=== PATIENT | male | born 1965 | race Caucasian/White ===

== ENCOUNTER 2017-02-03 17:56 | Inpatient (IN) | payer OTHER ==
--- NOTE | 2017-02-03 19:49 | C.PDOC ---
History Of Present Illness 52 y/o male presents to ED with complaints of right hand pain and questionable metacarpal fracture. Patient sates he punched a glass wall last that broke on and was seen at another Hospital and given Antibiotics which he finished but no improvement. Patient was also given a hand splint which he removed. Patient denies weakness, numbness but swelling and erythema is noted. No other complaints at this time Time Seen by Provider: 02/03/17 18:58 Chief Complaint (Nursing): Abnormal Skin Integrity History Per: Patient History/Exam Limitations: no limitations Onset/Duration Of Symptoms: Days Location Of Injury: Right: Hand Quality Of Symptoms: Painful Past Medical History Reviewed: Historical Data, Nursing Documentation, Vital Signs Vital Signs: Last Vital Signs Temp 99.1 F 02/03/17 18:28 Pulse 105 H 02/03/17 18:28 Resp 20 02/03/17 18:28 BP 138/89 02/03/17 18:28 Pulse Ox 96 02/03/17 22:12 - Medical History PMH: Anxiety, Arthritis, Asthma, Depression, HTN, Kidney Stones Surgical History: Appendectomy - [facility] Procedures APPLICATION OF SPLINT (01/03/14) INJECT/INFUSE NEC (09/06/14) Family History: States: Unknown Family Hx - Social History Hx Alcohol Use: No Hx Substance Use: Yes - Immunization History Hx Tetanus Toxoid Vaccination: Yes Hx Influenza Vaccination: Yes Hx Pneumococcal Vaccination: No Review Of Systems Constitutional: Negative for: Weakness Musculoskeletal: Positive for: Hand Pain. Negative for: Shoulder Pain, Arm Pain Neurological: Negative for: Weakness, Numbness Physical Exam - Physical Exam Appears: Non-toxic, No Acute Distress Skin: Normal Color, Warm Head: Atraumatic, Normacephalic Extremity: Capillary Refill (<2 seconds), Swelling (Diffuse Swelling over hand, metacarpals non tender,unable to make a fist. ), Other (4th right knuckle open wound, warmth with purulent discharge on right 4th knuckle) Pulses: Left Radial: Normal, Right Radial: Normal Neurological/Psych: Normal Motor, Normal Sensation, Normal Reflexes ED Course And Treatment - Laboratory Results Result Diagrams: 02/03/17 20:06 02/03/17 20:06 O2 Sat by Pulse Oximetry: 96 (RA) Pulse Ox Interpretation: Normal Medical Decision Making Medical Decision Making: discussed iwth Dr Logan, may admit to his service on medicine. Dr Blood called for hand consult. Disposition Discussed With : Macario Logan Doctor Will See Patient In The: ED - Disposition Disposition Time: 21:14 Condition: STABLE - Clinical Impression Clinical Impression: Cellulitis of right hand - PA / [employer] / Resident Statement MD/DO has reviewed & agrees with the documentation as recorded. - Scribe Statement The provider has reviewed the documentation as recorded by the Scribe Gino Sneed All medical record entries made by the Scribe were at my direction and personally dictated by me. I have reviewed the chart and agree that the record accurately reflects my personal performance of the history, physical exam, medical decision making, and the department course for this patient. I have also personally directed, reviewed, and agree with the discharge instructions and disposition. Decision To Admit - Pt Status Changed To: Hospital Disposition Of: Inpatient - Admit Certification Admit to Inpatient:: After my assessment, the patient will require hospitalization for at least two midnights. This is because of the severity of symptoms shown, intensity of services needed, and/or the medical risk in this patient being treated as an outpatient. - InPatient: Physician Admission Certification: I certify that this patient requires 2 or more midnights of care for the following reason:: iv antibiotics for infection to dominant hand - . Bed Request Type: Regular Patient Diagnosis: Cellulitis of right hand
[2017-02-03] MEDS ORDERED: Piperacill/Tazo 3.375gm in Dex 3.375 GM/50 ML BAG IVPB STA (20:02)
[2017-02-03 20:09] LABS: BASO # 0.1 K/uL (0.0-0.2); BASO % 0.6 % (0.0-2.0); EOS # 0.2 K/uL (0.0-0.7); EOS % 1.5 % (0.0-4.0); HEMATOCRIT 43.2 % (35.0-51.0); LYMPH # 2.9 K/uL (1.0-4.3); LYMPH % 24.9 % (20.0-40.0); MEAN CELL VOLUME 88.3 fL (80.0-94.0); MEAN CORPUSCULAR HEMOGLOBIN 29.9 pg (27.0-31.0); MEAN CORPUSCULAR HGB CONC 33.9 g/dL (33.0-37.0); MEAN PLATELET VOLUME 8.2 fL (7.2-11.7); MONO % 8.8 % (0.0-10.0); RED CELL DISTRIBUTION WIDTH 12.9 % (11.5-14.5); WHITE BLOOD COUNT 11.7 K/uL (4.8-10.8)
[2017-02-03] MEDS ORDERED: Piperacillin/Tazobact 3.375 gm 100 ML IVPB ONE (20:16)
[2017-02-03 20:17] LABS: CHLORIDE 104 mmol/L (98-107); SODIUM 143 mmol/L (132-148)
[2017-02-03 20:20] LABS: BLOOD UREA NITROGEN 18 mg/dL (9-20); CALCIUM 9.8 mg/dl (8.6-10.4); CARBON DIOXIDE 27 mmol/L (22-30); GFR AFRICAN-AMERICAN > 60; GLUCOSE,RANDOM 80 mg/dL (75-110)
[2017-02-03] MEDS ORDERED: Bacitracin 500 Units/gm Oint Foilpak UD ONE (20:58)
[2017-02-03] MEDS ORDERED: Vancomycin 1 GM 1 GM/250 ML BAG IVPB ONE (21:17)
[2017-02-04] MEDS ORDERED: Oxycodone/Acetaminophen 5/325 mg Tab PO PRN (00:58)
[2017-02-04] MEDS: Clindamycin 300 MG in Sodium Chloride 0.9% 50 ML IVPB SCH ×3 (02:27→19:00)
--- NOTE | 2017-02-04 03:27 | CP.PCM.HP ---
<Bekah Lassiter - Last Filed: 02/04/17 05:03> History of Present Illness - History of Present Illness History of Present Illness: CC: Right arm is infected HPI: Patient is a 52yo male PMHx of HTN, arthritis, anxiety, depression presenting with a right hand infection worsening over the past two weeks. Patient reports that 2 weeks ago he punched some thick glass out of anger and noticed that the next morning his hand had become very swollen. Patient had a scab on the dorsal surface of his hand from an work injury which "popped off" after which he had an open wound that was draining serosanguinous fluid that later turned into purulent fluid. Patient reported that he could feel like his hand was inflamed and felt like there was something stuck in it between the fourth and fifth metacarpal. He was given percocet for the pain and a 7 day course of antibiotics but the purulent discharge continued and the pain worsened. Patient reported he was unable to make a fist secondary to the pain and he felt like his right hand was tight. He continued to apply "3 in 1 antibiotic ointment" which did not seem to help. Patient decided to come in today as the pain and purulent discharge worsened. 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 Patient denied diaphoresis, weakness, chaneg in hearing, sore throat, dysphagia, chest pain, palpitations, SOB, cough, abdominal pain, nausea, vomiting, hematemesis, hematochezia, melenotic stool, dysuria, swelling in his legs, rash, easy bruising, easy bleeding. Patient has been traveling back and forth to [facility] and has not been around any sick contacts. PMHx: HTN, arthritis, anxiety, depression PSHx: denies ALL: NKDA Medications: Lisinopril 10mg po daily Social Hx: denies EtOH, tobacco. smokes marijuana for arthritis. Family Hx: mother and father had unknown cancer; gout and DM in mother PMD: [facility] --> patient switching to Dr. 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 absent: Increased Appetite, Weight Gain - EENT Eyes: As Per HPI, Blurred Vision Ears: As Per HPI, Dizziness. absent: Tinnitus Nose/Mouth/Throat: As Per HPI. absent: Dysphagia, Sore Throat - Cardiovascular Cardiovascular: As Per HPI. absent: Chest Pain, Dyspnea, Edema, Palpitations - Respiratory Respiratory: As Per HPI. absent: Cough, Dyspnea, Dyspnea on Exertion, Chest Congestion - Gastrointestinal Gastrointestinal: As Per HPI, Diarrhea. absent: Abdominal Pain, Constipation, Nausea, Vomiting - Genitourinary Genitourinary: As Per HPI, Nocturia, Urinary Frequency. absent: Dysuria, Hematuria, Pyuria - Musculoskeletal Musculoskeletal: As Per HPI, Back Pain. absent: Numbness, Tingling - Integumentary Integumentary: As Per HPI, Non-Healing Lesions, Wounds. absent: Pruritus, Rash - Neurological Neurological: As Per HPI, Dizziness, Headaches. absent: Tingling - Psychiatric Psychiatric: As Per HPI, Anxiety - Endocrine Endocrine: As Per HPI, Polyuria. absent: Palpitations, Polydipsia, Polyphagia - Hematologic/Lymphatic Hematologic: As Per HPI. 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 - RENAL Hx Kidney Stones: Yes - HEMATOLOGICAL/ONCOLOGICAL Hx Human Immunodeficiency Virus (HIV): No - MUSCULOSKELETAL/RHEUMATOLOGICAL Hx Arthritis: Yes - GENITOURINARY/GYNECOLOGICAL Hx Sexually Transmitted Disorders: No - PSYCHIATRIC Hx Anxiety: Yes Hx Depression: Yes Hx Substance Use: Yes - SURGICAL HISTORY Hx Appendectomy: Yes - ANESTHESIA Hx Anesthesia: Yes Hx Anesthesia Reactions: No Meds Allergies/Adverse Reactions: Allergies Allergy/AdvReac Type Severity Reaction Status Date / Time No Known Allergies Allergy Verified 02/03/17 18:32 Physical Exam - Constitutional Appears: Non-toxic, No Acute Distress - Head Exam Head Exam: ATRAUMATIC, NORMAL INSPECTION, NORMOCEPHALIC - Eye Exam Eye Exam: EOMI, Normal appearance, PERRL. absent: Conjunctival injection, Scleral icterus Pupil Exam: NORMAL ACCOMODATION, PERRL - ENT Exam ENT Exam: Mucous Membranes Moist - Neck Exam Neck exam: Positive for: Full Rom, Normal Inspection. Negative for: Lymphadenopathy - Respiratory Exam Respiratory Exam: Clear to Auscultation Bilateral, NORMAL BREATHING PATTERN. absent: Accessory Muscle Use, Rales, Rhonchi, Wheezes - Cardiovascular Exam Cardiovascular Exam: REGULAR RHYTHM, RRR, +S1, +S2. absent: Systolic Murmur - GI/Abdominal Exam GI & Abdominal Exam: Normal Bowel Sounds, Soft. absent: Firm, Guarding, Rigid, Tenderness - Extremities Exam Extremities exam: Positive for: normal capillary refill, tenderness (over 4th metatarsal), pedal pulses present. Negative for: pedal edema Additional comments: right hand diffuse Swelling; unable to make a fist 4th right knuckle open wound, warmth with purulent discharge on right 4th knuckle - Back Exam Back exam: NORMAL INSPECTION. absent: rash noted, tenderness - Neurological Exam Neurological exam: Alert, CN II-XII Intact, Oriented x3 - Psychiatric Exam Psychiatric exam: Normal Affect, Normal Mood - Skin Skin Exam: Warm Additional comments: purulent discharge from open wound over right 4th metatarsal Results - Vital Signs Recent Vital Signs: Last Vital Signs Temp 98.7 F 02/04/17 02:18 Pulse 76 02/04/17 02:18 Resp 18 02/04/17 02:18 BP 132/67 02/04/17 02:18 Pulse Ox 96 02/04/17 02:18 - Labs Result Diagrams: 02/03/17 20:06 02/03/17 20:06 Assessment & Plan - Assessment and Plan (Free Text) Assessment: 52yo male PMHx of HTN, arthritis, anxiety, depression presenting with a right hand infection worsening over the past two weeks Plan: R hand wound -Surgery Dr. Hudson consulted -f/u CT R hand with IV contrast -f/u R hand x-ray official read -f/u AM labs -f/u wound culture and blood culture -Rocephin 1gm ivpb daily -Clindamycin 300mg IVPB q6h -Toradol 15mg ivp q6h prn pain -Percocet 5/325mg 1 tab po q6h prn pain mild Hx of HTN -Lisinopril 10mg po daily -Monitor -f/u HgbA1c and lipid panel PPX -Protonix 40mg ivp daily -VTE ppx on hold for procedure -NPO -SCDs Case discussed with Dr. Desmond Lassiter PGY1 <Macario Logan P - Last Filed: 02/11/17 10:55> Results - Vital Signs Recent Vital Signs: Last Vital Signs Temp 97.6 F 02/11/17 08:10 Pulse 66 02/11/17 08:10 Resp 20 02/11/17 08:10 BP 98/60 L 02/11/17 08:10 Pulse Ox 97 02/11/17 08:10 - Labs Result Diagrams: 02/11/17 07:48 02/11/17 07:48 Labs: Laboratory Results - last 24 hr 02/10/17 02/11/17 02/11/17 07:16 00:42 07:48 WBC 7.1 RBC 4.60 Hgb 13.6 Hct 40.7 MCV 88.5 MCH 29.6 MCHC 33.5 RDW 12.9 Plt Count 255 MPV 8.8 Neut % (Auto) 49.3 L Lymph % (Auto) 36.3 [place] % (Auto) 10.0 Eos % (Auto) 3.6 Baso % (Auto) 0.8 Neut # 3.5 Lymph # 2.6 [place] # 0.7 Eos # 0.3 Baso # 0.1 Sodium Potassium Chloride Carbon Dioxide Anion Gap BUN Creatinine Est GFR ( Amer) Est GFR (Non-Af Amer) Random Glucose Calcium Phosphorus Magnesium Total Bilirubin AST ALT Alkaline Phosphatase Total Protein Albumin Globulin Albumin/Globulin Ratio Procalcitonin < 0.05 L Vancomycin Trough 10.0 02/11/17 07:48 WBC RBC Hgb Hct MCV MCH MCHC RDW Plt Count MPV Neut % (Auto) Lymph % (Auto) [place] % (Auto) Eos % (Auto) Baso % (Auto) Neut # Lymph # [place] # Eos # Baso # Sodium 140 Potassium 4.0 Chloride 105 Carbon Dioxide 23 Anion Gap 15 BUN 14 Creatinine 1.0 Est GFR ( Amer) > 60 Est GFR (Non-Af Amer) > 60 Random Glucose 81 Calcium 8.9 Phosphorus 4.0 Magnesium 2.1 Total Bilirubin 0.6 AST 29 ALT 38 Alkaline Phosphatase 65 Total Protein 7.8 Albumin 3.9 Globulin 3.9 Albumin/Globulin Ratio 1.0 Procalcitonin Vancomycin Trough Attending/Attestation - Attestation I have personally seen and examined this patient.: Yes I have fully participated in the care of the patient.: Yes I have reviewed all pertinent clinical information: Yes
--- NOTE | 2017-02-04 07:27 | CP.PCM.PN ---
<Trini Schreiber - Last Filed: 02/04/17 12:07> Subjective - Date & Time of Evaluation Date of Evaluation: 02/04/17 Time of Evaluation: 07:35 - Subjective Subjective: Patient seen and examined at bedside this morning. He reports that he has pain on his R hand over the lesion but denied radiating pain. He did not have any pain in his wrist. He was able to moves his fingers and hand but stated there was pain with movement. He denied fevers/chills. He denied all other complaints. He will have a bedside I/D of of R hand wound today. Objective - Vital Signs/Intake and Output Vital Signs (last 24 hours): Temp Pulse Resp BP Pulse Ox 98.3 F 77 20 136/79 97 02/04/17 03:17 02/04/17 03:17 02/04/17 03:17 02/04/17 03:17 02/04/17 03:17 Intake and Output: 02/04/17 02/04/17 06:59 18:59 Intake Total 50 Balance 50 - Medications Medications: Current Medications Ceftriaxone Sodium 1 gm/ (Sodium Chloride) 100 mls @ 100 mls/hr IVPB DAILY [facility] Clindamycin Phosphate 300 mg/ (Sodium Chloride) 52 mls @ 100 mls/hr IVPB Q6H [facility] Last Admin: 02/04/17 06:36 Dose: 100 mls/hr Ketorolac Tromethamine (Toradol) 15 mg IVP Q6 PRN PRN Reason: Pain, moderate (4-7) Lisinopril (Zestril) 10 mg PO DAILY [facility] Oxycodone/Acetaminophen (Percocet 5/325 Mg Tab) 1 tab PO Q6H PRN PRN Reason: Pain, Mild (1-3) Stop: 02/07/17 00:59 Last Admin: 02/04/17 03:54 Dose: 1 tab Pantoprazole Sodium (Protonix Inj) 40 mg IVP DAILY [facility] Pneumococcal Polyvalent Vaccine (Pneumovax 23 Vaccine) 0.5 ml IM .ONCE ONE Stop: 02/06/17 10:01 - Constitutional Appears: Non-toxic, No Acute Distress - Head Exam Head Exam: ATRAUMATIC, NORMAL INSPECTION - Eye Exam Eye Exam: EOMI, Normal appearance, PERRL Pupil Exam: NORMAL ACCOMODATION - ENT Exam ENT Exam: Mucous Membranes Moist - Respiratory Exam Respiratory Exam: Clear to Ausculation Bilateral, NORMAL BREATHING PATTERN. absent: Rales, Rhonchi, Wheezes, Respiratory Distress - Cardiovascular Exam Cardiovascular Exam: REGULAR RHYTHM, +S1, +S2 - GI/Abdominal Exam GI & Abdominal Exam: Soft, Normal Bowel Sounds. absent: Distended, Firm, Guarding, Tenderness - Extremities Exam Additional comments: Palpable pulses in R UE, swelling of fourth right digit, warmth and erythema of right 4th MCP, bruising on volar surface of right hand. Sensation is intact. Mild decrease in ROM due to edema Pain with flexion and extension of MCP joint. - Back Exam Back Exam: NORMAL INSPECTION. absent: CVA tenderness (L), CVA tenderness (R), paraspinal tenderness - Neurological Exam Neurological Exam: Alert, Awake, Normal Gait, Oriented x3 Neuro motor strength exam: Left Upper Extremity: 5, Right Upper Extremity: 5, Left Lower Extremity: 5, Right Lower Extremity: 5 - Psychiatric Exam Psychiatric exam: Normal Affect, Normal Mood - Skin Skin Exam: Dry, Intact, Normal Color, Warm Assessment and Plan - Assessment and Plan (Free Text) Assessment: Assessment: 52yo male PMHx of HTN, arthritis, anxiety, depression presenting with a right hand infection worsening over the past two weeks Plan: R hand wound Surgery Dr. Hudson consulted - will have bedside ID done today f/u CT R hand with IV contrast R hand x-ray official read - no evidence of osteomyelitis, fracture, or dislocation f/u wound culture and blood culture Rocephin 1gm ivpb daily (started 02/04) Clindamycin 300mg IVPB q6h (started 02/04) Florastor Percocet 5/325mg 1 tab po q6h prn pain mild EKG/chest X ray - normal coags wnl (INR 1.1) f/u AM labs Hx of HTN BP controlled Lisinopril 10mg po daily Monitor Impaired Glucose tolerance HbA1c - 5.7 diet and lifestyle modifications High Triglycerides Trig - 202 diet and lifestyle modifications PPX -Protonix 40mg ivp daily -VTE ppx on hold for procedure -SCDs <Jocelin Mobley V - Last Filed: 02/05/17 23:38> Objective - Vital Signs/Intake and Output Vital Signs (last 24 hours): Temp Pulse Resp BP Pulse Ox 98.4 F 79 18 134/81 95 02/05/17 22:40 02/05/17 22:40 02/05/17 22:40 02/05/17 22:40 02/05/17 15:41 Intake and Output: 02/05/17 02/06/17 18:59 06:59 Intake Total 340 200 Balance 340 200 - Medications Medications: Current Medications Enoxaparin Sodium (Lovenox) 40 mg SC DAILY [facility] Last Admin: 02/05/17 11:34 Dose: 40 mg Vancomycin/Sodium Chloride (Vancocin) 1 gm in 200 mls @ 133 mls/hr IVPB Q12H [facility] Stop: 02/10/17 10:01 Last Admin: 02/05/17 21:28 Dose: 133 mls/hr Ceftriaxone Sodium 1 gm/ (Sodium Chloride) 100 mls @ 100 mls/hr IVPB DAILY [facility] Lisinopril (Zestril) 10 mg PO DAILY [facility] Last Admin: 02/05/17 11:04 Dose: 10 mg Ondansetron HCl (Zofran Inj) 4 mg IVP Q4 PRN PRN Reason: Nausea/Vomiting Oxycodone/Acetaminophen (Percocet 5/325 Mg Tab) 1 tab PO Q4 PRN PRN Reason: Pain, Mild (1-3) Stop: 02/08/17 12:01 Last Admin: 02/05/17 22:11 Dose: 1 tab Pantoprazole Sodium (Protonix Inj) 40 mg IVP DAILY [facility] Last Admin: 02/05/17 11:03 Dose: 40 mg Pneumococcal Polyvalent Vaccine (Pneumovax 23 Vaccine) 0.5 ml IM .ONCE ONE Stop: 02/06/17 10:01 Saccharomyces Boulardii (Florastor) 250 mg PO BID [facility] Last Admin: 02/05/17 17:33 Dose: 250 mg - Labs Labs: 02/05/17 06:12 02/05/17 06:12 PT 12.2 SECONDS (9.7-12.2) 02/04/17 07:41 INR 1.1 02/04/17 07:41 APTT 25 SECONDS (21-34) 02/04/17 07:41 Attending/Attestation - Attestation I have personally seen and examined this patient.: Yes I have fully participated in the care of the patient.: Yes I have reviewed all pertinent clinical information, including history, physical exam and plan: Yes Notes (Text): This is late computer entry for 02/04/17. Patient seen, examined, and case discussed with day-time resident. Patient seen and examined during morning rounds, noting he hit his hand against a wall following breakup with his girlfriend. Denies SI/Denies HI. Declines help from psychiatry when offered during rounds. Hand surgery consulted->help appreciated recommended for I&D Patient is currently on IV abx to cover for infection. Ordered for cultures-->will follow-up Assessment/Plan 1) Hand Wound * Surgery Dr. Hudson consulted-->help appreciated-->recommending for I&D * Clindamycin 300mg IVPB Q 6H (active since 02/04/17) * c/w Rocephin 1gm ivpb daily (started 02/04/17) * CT R hand with IV contrast (02/04/17) ordered * Hand right (02/03/17): pending * Percocet 5/325mg 1 tab po q4h prn pain mild * EKG: NSR, INR: 1.1 2) Hypertension * Lisinopril 10mg PO daily * Monitor vitals and adjust accordingly 3) Impaired Glucose tolerance * HbA1c - 5.7 * Advocate for diet and lifestyle modifications 4) Elevated triglycerides and low HDL * Trig - 202-->advocate for diet and lifestyle modifications * recommended OTC fish oil and exercise to build up HDL 5) PPX * Protonix 40mg ivp daily * SCDs * Florastor 250mg PO BID
[2017-02-04 07:55] LABS: BASO # 0.1 K/uL (0.0-0.2); BASO % 0.6 % (0.0-2.0); EOS # 0.2 K/uL (0.0-0.7); EOS % 2.4 % (0.0-4.0); HEMATOCRIT 39.3 % (35.0-51.0); LYMPH % 37.3 % (20.0-40.0); MEAN CELL VOLUME 88.3 fL (80.0-94.0); MEAN CORPUSCULAR HEMOGLOBIN 29.5 pg (27.0-31.0); MEAN CORPUSCULAR HGB CONC 33.4 g/dL (33.0-37.0); MEAN PLATELET VOLUME 8.4 fL (7.2-11.7); MONO # 0.8 K/uL (0.0-0.8); MONO % 10.5 % (0.0-10.0); NRBC % 0.1 % (0.0-2.0); RED CELL DISTRIBUTION WIDTH 13.4 % (11.5-14.5)
[2017-02-04 08:03] LABS: INR 1.1
[2017-02-04 08:10] LABS: CHOLESTEROL 172 mg/dL (0-199)
[2017-02-04 08:17] LABS: CHLORIDE 108 mmol/L (98-107); POTASSIUM 3.8 mmol/L (3.6-5.2); SODIUM 142 mmol/L (132-148)
[2017-02-04 08:19] LABS: ALB/GLOB RATIO 1.1 (1.0-2.1); AST/SGOT 24 U/L (17-59); CARBON DIOXIDE 23 mmol/L (22-30); GFR AFRICAN-AMERICAN > 60; TOTAL PROTEIN 7.5 g/dL (6.3-8.3)
[2017-02-04 08:20] LABS: ALKALINE PHOSPHATASE 66 U/L (38-126); ALT/SGPT 24 U/L (21-72); BLOOD UREA NITROGEN 19 mg/dL (9-20); CALCIUM 9.1 mg/dl (8.6-10.4); GLUCOSE,RANDOM 92 mg/dL (75-110); MAGNESIUM 2.4 mg/dL (1.6-2.3); PHOSPHOROUS 4.3 mg/dL (2.5-4.5)
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
[2017-02-04] MEDS ORDERED: Iodixanol 320 MG/ML 100 ML BOTTLE IV ONE (09:12)
--- NOTE | 2017-02-04 10:00 | RAD ---
HISTORY: baseline/preadmission COMPARISON: No prior. FINDINGS: LUNGS: Poor inspiration with low lung volumes, mild crowded bronchovascular markings and mild bibasilar atelectasis. PLEURA: No significant pleural effusion identified, no pneumothorax apparent. CARDIOVASCULAR: Heart size upper limits of normal. OSSEOUS STRUCTURES: No significant abnormalities. VISUALIZED UPPER ABDOMEN: Normal. OTHER FINDINGS: None. IMPRESSION: Poor inspiration with low lung volumes, mild crowded bronchovascular markings and mild bibasilar atelectasis.
--- NOTE | 2017-02-04 10:15 | RAD ---
PROCEDURE: Right Hand Radiographs. HISTORY: 4th metacarpal swelling, purulent discharge COMPARISON: None. FINDINGS: BONES: Normal. No fracture. JOINTS: Normal. No osteoarthritic changes. SOFT TISSUES: Soft tissue swelling. OTHER FINDINGS: None. IMPRESSION: No osteomyelitis fracture or dislocation.
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
[2017-02-04] MEDS ORDERED: Sodium Chloride 0.9% 1,000 ML IV SCH (12:45)
[2017-02-04] MEDS: Potassium Ch 20mEq in D5-1/2NS 1,000 ML IV SCH ×3 (12:53→17:47)
[2017-02-04] MEDS ORDERED: Propofol 10 mg/ml Inj (20 ML) ONE (13:11)
[2017-02-04] MEDS ORDERED: Midazolam 2 MG/2 ML VIAL ONE ×2 (13:13→13:14)
[2017-02-04] MEDS ORDERED: Lactated Ringer's 1,000 ML IV ONE ×2 (13:15→15:15)
[2017-02-04] MEDS ORDERED: Bupivacaine 0.5% Inj(30mL) ONE (13:22)
--- NOTE | 2017-02-04 13:30 | CT ---
CT right hand History: Abscess. Comparison: None available. Technique: Multiple contiguous axial images were performed through the right hand with the use of intravenous contrast. Subsequently, sagittal and coronal reformatted images were obtained. This CT exam was performed using one or more of the following dose reduction techniques: Automated exposure control, adjustment of the mA and/or kV according to patient size, and/or use of iterative reconstruction technique. Findings: Prominent soft tissue swelling seen within the dorsal soft tissues at the level of 3rd 4th and 5th metacarpal heads. At the level of the 4th metacarpal head, there is a prominent partially enhancing soft tissue collection measuring 2.0 x 2.0 x 2.1 centimeters extending from the subcutaneous soft tissues to the dorsal cortex of the head of the 4th metacarpal bone extending to the MCP joint space. This collection appears to possibly involves the 4th extensor tendon sheath displacing the tendon radially approximately 5 millimeters. This is concerning for a focal abscess and or prominent phlegmon. No gross osseous destruction to suggest for acute osteomyelitis. If there is concern for acute osteomyelitis, consider further evaluation with MRI. Prominent degenerative changes at the level of the wrist and carpometacarpal basis with joint space narrowing, subchondral sclerosis, osteophytosis, and subchondral cyst formation. Suggestion of an accessory carpal bone and or ossicle adjacent to the base of the 3rd metacarpal bone dorsally where there is prominent degenerative change at the articulation with the base of the 3rd metacarpal bone with subchondral sclerosis and subchondral cyst formation. Chronic deformity of the head of the 5th metacarpal bone. Bone island at the head of the 3rd metacarpal bone. Prominent osteophytosis at the base of the 2nd metacarpal carpal bone. Subchondral cyst formation with degenerative changes at the 1st MCP joint space. Punctate ossific density and or accessory ossicle at the 1st carpometacarpal joint space. Degenerative changes noted at the 1st carpometacarpal joint space with sclerosis and bony hypertrophy. Narrowing of the radiocarpal joint space. Subchondral cyst formation within the proximal ulna. Impression: 1. Prominent soft tissue swelling seen within the dorsal soft tissues at the level of 3rd 4th and 5th metacarpal heads. At the level of the dorsal 4th metacarpal head, there is a prominent partially enhancing soft tissue collection measuring 2.0 x 2.0 x 2.1 centimeters extending from the subcutaneous soft tissues to the dorsal cortex of the head of the 4th metacarpal bone extending to the MCP joint space. This collection appears to possibly also involve the 4th extensor tendon sheath displacing the tendon radially approximately 5 millimeters. This is concerning for a focal abscess and or prominent phlegmon. No gross osseous destruction to suggest for acute osteomyelitis. If there is concern for acute osteomyelitis, consider further evaluation with MRI. Correlation with MRI may also be helpful to better evaluate tendinous involvement. 2. Prominent degenerative changes at the level of the wrist and carpometacarpal basis with joint space narrowing, subchondral sclerosis, osteophytosis, and subchondral cyst formation. Suggestion of an accessory carpal bone and or ossicle adjacent to the base of the 3rd metacarpal bone dorsally where there is prominent degenerative change at the articulation with the base of the 3rd metacarpal bone with subchondral sclerosis and subchondral cyst formation. 3. Chronic deformity of the head of the 5th metacarpal bone. 4. Bone island at the head of the 3rd metacarpal bone. 5. Prominent osteophytosis at the base of the 2nd metacarpal carpal bone. Subchondral cyst formation with degenerative changes at the 1st MCP joint space. Punctate ossific density and or accessory ossicle at the 1st carpometacarpal joint space. Degenerative changes noted at the 1st carpometacarpal joint space with sclerosis and bony hypertrophy. Narrowing of the radiocarpal joint space. Subchondral cyst formation within the proximal ulna.
[2017-02-04] MEDS ORDERED: Bacitracin 500 Units/gm Oint Foilpak UD ONE (13:49)
--- NOTE | 2017-02-04 14:33 | PCM.SURG1 ---
Surgeon's Initial Post Op Note - Surgeon's Notes Surgeon: Dr. Hudson Color Matcher: Dr. Villatoro Type of Anesthesia: General LMA, Local Pre-Operative Diagnosis: Right MCP abscess Operative Findings: see operative report Post-Operative Diagnosis: Right MCP abscess Operation Performed: Incision and drainage of right MCP joint abscess with debridement and joint washout Specimen/Specimens Removed: debrided tissue Estimated Blood Loss: EBL {In ML}: 5 Blood Products Given: N/A Drains Used: Lign[place] Post-Op Condition: Good Date of Surgery/Procedure: 02/04/17 Time of Surgery/Procedure: 14:34
[2017-02-04] MEDS: HYDROmorphone 0.5 mg/0.5 ml ISec IVP PRN ×2 (14:53→15:12)
[2017-02-04] MEDS: Saccharomyces Boulardi 250 mg Cap PO SCH (17:17)
[2017-02-05] MEDS: Clindamycin 300 MG in Sodium Chloride 0.9% 50 ML IVPB SCH ×2 (01:03→07:00)
[2017-02-05] MEDS: Potassium Ch 20mEq in D5-1/2NS 1,000 ML IV SCH (03:32)
[2017-02-05 06:28] LABS: BASO % 0.5 % (0.0-2.0); EOS # 0.1 K/uL (0.0-0.7); EOS % 1.2 % (0.0-4.0); HEMATOCRIT 37.4 % (35.0-51.0); LYMPH # 2.7 K/uL (1.0-4.3); LYMPH % 26.6 % (20.0-40.0); MEAN CELL VOLUME 87.9 fL (80.0-94.0); MEAN CORPUSCULAR HGB CONC 34.2 g/dL (33.0-37.0); MEAN PLATELET VOLUME 8.3 fL (7.2-11.7); MONO % 10.2 % (0.0-10.0); RED CELL DISTRIBUTION WIDTH 13.2 % (11.5-14.5); WHITE BLOOD COUNT 10.1 K/uL (4.8-10.8)
[2017-02-05 06:44] LABS: CHLORIDE 101 mmol/L (98-107)
[2017-02-05 06:45] LABS: SODIUM 134 mmol/L (132-148)
[2017-02-05 06:46] LABS: POTASSIUM 4.1 mmol/L (3.6-5.2)
[2017-02-05 06:48] LABS: ALB/GLOB RATIO 1.1 (1.0-2.1); ALKALINE PHOSPHATASE 60 U/L (38-126); ALT/SGPT 24 U/L (21-72); AST/SGOT 18 U/L (17-59); BLOOD UREA NITROGEN 13 mg/dL (9-20); CARBON DIOXIDE 20 mmol/L (22-30); GFR AFRICAN-AMERICAN > 60; GLUCOSE,RANDOM 102 mg/dL (75-110); TOTAL PROTEIN 7.1 g/dL (6.3-8.3)
[2017-02-05 06:49] LABS: CALCIUM 8.3 mg/dl (8.6-10.4); MAGNESIUM 2.1 mg/dL (1.6-2.3); PHOSPHOROUS 3.4 mg/dL (2.5-4.5)
--- NOTE | 2017-02-05 07:17 | CP.PCM.PN ---
<AbdoulTrini - Last Filed: 02/05/17 16:06> Subjective - Date & Time of Evaluation Date of Evaluation: 02/05/17 Time of Evaluation: 07:15 - Subjective Subjective: Patient seen and examined at bedside this morning. He reports that he has pain on his R hand but states it has slightly improved. He had a bedside I/D yesterday. His hand is wrapped up with dressing and and Abelardo bandage. He denied fevers/chills. He denied all other complaints. He is tolerating diet and having normal bowel movements. Objective - Vital Signs/Intake and Output Vital Signs (last 24 hours): Temp Pulse Resp BP Pulse Ox 99.3 F 83 20 101/65 94 L 02/05/17 00:00 02/05/17 00:00 02/05/17 00:00 02/05/17 00:00 02/05/17 00:00 - Medications Medications: Current Medications Ceftriaxone Sodium 1 gm/ (Sodium Chloride) 100 mls @ 100 mls/hr IVPB DAILY [facility] Last Admin: 02/04/17 11:28 Dose: 100 mls/hr Clindamycin Phosphate 300 mg/ (Sodium Chloride) 52 mls @ 100 mls/hr IVPB Q6H [facility] Last Admin: 02/05/17 07:00 Dose: 100 mls/hr Potassium Chloride/Dextrose/Sod Cl (Potassium Chl 20 Meq In D5-1/2ns) 1,000 mls @ 100 mls/hr IV .Q10H [facility] Last Admin: 02/05/17 03:32 Dose: Not Given Lisinopril (Zestril) 10 mg PO DAILY [facility] Last Admin: 02/04/17 10:14 Dose: 10 mg Morphine Sulfate (Morphine) 2 mg IVP Q4 PRN PRN Reason: Pain, moderate (4-7) Last Admin: 02/05/17 06:35 Dose: 2 mg Ondansetron HCl (Zofran Inj) 4 mg IVP Q4 PRN PRN Reason: Nausea/Vomiting Oxycodone/Acetaminophen (Percocet 5/325 Mg Tab) 1 tab PO Q6H PRN PRN Reason: Pain, Mild (1-3) Stop: 02/07/17 00:59 Last Admin: 02/04/17 03:54 Dose: 1 tab Pantoprazole Sodium (Protonix Inj) 40 mg IVP DAILY [facility] Last Admin: 02/04/17 10:19 Dose: 40 mg Pneumococcal Polyvalent Vaccine (Pneumovax 23 Vaccine) 0.5 ml IM .ONCE ONE Stop: 02/06/17 10:01 Saccharomyces Boulardii (Florastor) 250 mg PO BID [facility] Last Admin: 02/04/17 17:17 Dose: 250 mg - Labs Labs: 02/05/17 06:12 02/05/17 06:12 PT 12.2 SECONDS (9.7-12.2) 02/04/17 07:41 INR 1.1 02/04/17 07:41 APTT 25 SECONDS (21-34) 02/04/17 07:41 - Constitutional Appears: Non-toxic, No Acute Distress - Head Exam Head Exam: ATRAUMATIC, NORMAL INSPECTION - Eye Exam Eye Exam: EOMI, Normal appearance, PERRL Pupil Exam: NORMAL ACCOMODATION - ENT Exam ENT Exam: Mucous Membranes Moist - Respiratory Exam Respiratory Exam: Clear to Ausculation Bilateral, NORMAL BREATHING PATTERN. absent: Accessory Muscle Use, Rales, Rhonchi, Wheezes, Respiratory Distress - Cardiovascular Exam Cardiovascular Exam: REGULAR RHYTHM, +S1, +S2 - GI/Abdominal Exam GI & Abdominal Exam: Soft, Normal Bowel Sounds. absent: Distended, Firm, Guarding, Tenderness Additional comments: obese - Extremities Exam Extremities Exam: Normal Inspection. absent: Calf Tenderness, Pedal Edema Additional comments: R hand bandage in place c/d/i. Able to move fingers, warm, sensation in tact. No pain or erythema in wrist. - Back Exam Back Exam: NORMAL INSPECTION. absent: CVA tenderness (L), CVA tenderness (R), paraspinal tenderness - Neurological Exam Neurological Exam: Alert, Awake, Normal Gait, Oriented x3 Neuro motor strength exam: Left Upper Extremity: 5, Right Upper Extremity: 5, Left Lower Extremity: 5, Right Lower Extremity: 5 - Psychiatric Exam Psychiatric exam: Normal Affect, Normal Mood - Skin Skin Exam: Dry, Intact, Normal Color, Warm Assessment and Plan - Assessment and Plan (Free Text) Assessment: Assessment: 52yo male PMHx of HTN, arthritis, anxiety, depression presenting with a right hand infection worsening over the past two weeks Plan: R hand wound -Surgery Dr. Hudson consulted - s/p bedside ID on 02/04 -Enola drain removed today at bedside -Applied Medihoney to wound, wrapped in kerlex -Dr. Dunham, ID consulted - help appreciated -Wound culture - + MRSA, Staph Aureus -ID consulted, Dr. Dunham - help appreciated -Vancomycin 1gm IVPB Q12 (satarted 02/05) - will obtain trough on 4th dose -Rocephin 1gm ivpb daily (started 02/04) -Clindamycin 300mg IVPB q6h (started 02/04) discontinued today -f/u CT R hand with IV contrast - prominen soft tissue swelling seen within the dorsal soft tissues at the level 3rd, 4th, and 5th metacarpal heads. Prominent enhancing soft tissue collection Other incidental findings (please see full report) -R hand x-ray official read - no evidence of osteomyelitis, fracture, or dislocation -Blood cultures - negative for 24 hours -Florastor -Percocet 5/325mg 1 tab po q6h prn pain mild -EKG/chest X ray - normal -coags wnl (INR 1.1) -f/u AM labs Hx of HTN -BP controlled -Lisinopril 10mg po daily -Monitor Impaired Glucose tolerance -HbA1c - 5.7 -diet and lifestyle modifications High Triglycerides -Trig - 202 -diet and lifestyle modifications PPX -Protonix 40mg ivp daily -Lovenox 40mg SC daily -SCDs <Jocelin Mobley V - Last Filed: 02/05/17 23:31> Objective - Vital Signs/Intake and Output Vital Signs (last 24 hours): Temp Pulse Resp BP Pulse Ox 98.4 F 79 18 134/81 95 02/05/17 22:40 02/05/17 22:40 02/05/17 22:40 02/05/17 22:40 02/05/17 15:41 Intake and Output: 02/05/17 02/06/17 18:59 06:59 Intake Total 340 200 Balance 340 200 - Medications Medications: Current Medications Enoxaparin Sodium (Lovenox) 40 mg SC DAILY [facility] Last Admin: 02/05/17 11:34 Dose: 40 mg Vancomycin/Sodium Chloride (Vancocin) 1 gm in 200 mls @ 133 mls/hr IVPB Q12H [facility] Stop: 02/10/17 10:01 Last Admin: 02/05/17 21:28 Dose: 133 mls/hr Ceftriaxone Sodium 1 gm/ (Sodium Chloride) 100 mls @ 100 mls/hr IVPB DAILY [facility] Lisinopril (Zestril) 10 mg PO DAILY [facility] Last Admin: 02/05/17 11:04 Dose: 10 mg Ondansetron HCl (Zofran Inj) 4 mg IVP Q4 PRN PRN Reason: Nausea/Vomiting Oxycodone/Acetaminophen (Percocet 5/325 Mg Tab) 1 tab PO Q4 PRN PRN Reason: Pain, Mild (1-3) Stop: 02/08/17 12:01 Last Admin: 02/05/17 22:11 Dose: 1 tab Pantoprazole Sodium (Protonix Inj) 40 mg IVP DAILY [facility] Last Admin: 02/05/17 11:03 Dose: 40 mg Pneumococcal Polyvalent Vaccine (Pneumovax 23 Vaccine) 0.5 ml IM .ONCE ONE Stop: 02/06/17 10:01 Saccharomyces Boulardii (Florastor) 250 mg PO BID [facility] Last Admin: 02/05/17 17:33 Dose: 250 mg - Labs Labs: 02/05/17 06:12 02/05/17 06:12 PT 12.2 SECONDS (9.7-12.2) 02/04/17 07:41 INR 1.1 02/04/17 07:41 APTT 25 SECONDS (21-34) 02/04/17 07:41 Attending/Attestation - Attestation I have personally seen and examined this patient.: Yes I have fully participated in the care of the patient.: Yes I have reviewed all pertinent clinical information, including history, physical exam and plan: Yes Notes (Text): Patient seen, examined, and case discussed with day-time resident. Patient transferred to 555 following MRSA+ culture and placed on contact. MRSA culture resistant to Clindamycin. Patient started on Vancomycin 1 gram IV Q 12hours. Infectious disease (Dr. Dunham) consulted and discussed with her recommending at least 4 weeks of IV antibiotics. 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 Patient had ruperto drain by the time of my examination by surgery. Assessment/Plan 1) Hand Wound * Surgery Dr. Hudson consulted-->help appreciated * Dr. Dunham, ID consulted - help appreciated * Per surgery, ruperto drain removed today at bedside, recommended for applied Medihoney to wound, wrapped in kerlex * Wound culture - + MRSA, Staph Aureus-->resistant to Clindamycin * Started on Vancomycin 1gm IVPB Q12 (started 02/05) - will obtain trough on 4th dose * c/w Rocephin 1gm ivpb daily (started 02/04) * CT R hand with IV contrast (02/04/17) - prominent soft tissue swelling seen within the dorsal soft tissues at the level 3rd, 4th, and 5th metacarpal heads. Prominent enhancing soft tissue collection Other incidental findings (please see full report). Prominent partially enhancing soft tissue collection 2.0 X2.0 X2.1 cm extending from the subcutaneous soft tissues to the dorsal cortex of the head of 4th MCP extending to MCP joint space, involve 4th extensor tendon sheath (Focal abscess and/or phlegmon). No gross osseous destruction to suggest for acute osteomyelitis. Prominent degenerative changes at the level of wrist and carpometacarpal basis with joint space narrowing, subchondral sclerosis, osteophytosis, and subchondral cyst formation. Chronic deformity of the head 5ht metacarpal bone. Bone island at the head 3rd metacarpala bone. Prominent osteophytosis at the base of 2nd metacarpal carpal bone. Subchondral cyst formation with degenerative changes at the 1st MCP joint space. (Further details per report) * Blood cultures (02/03/17) - negative for 24 hours X2 * Hand right (02/03/17): MRSA * Finger (02/04/17): Staph Aureus * Percocet 5/325mg 1 tab po q4h prn pain mild * Florastor 250mg PO BID 2) Hypertension * Lisinopril 10mg PO daily * Monitor vitals and adjust accordingly 3) Impaired Glucose tolerance * HbA1c - 5.7 * Advocate for diet and lifestyle modifications 4) Elevated triglycerides and low HDL * Trig - 202-->advocate for diet and lifestyle modifications * recommended OTC fish oil and exercise to build up HDL 5) PPX * Protonix 40mg ivp daily * Lovenox 40mg SC daily * SCDs
--- NOTE | 2017-02-05 11:00 | CP.PCM.PN ---
Subjective - Date & Time of Evaluation Date of Evaluation: 02/05/17 Time of Evaluation: 10:59 - Subjective Subjective: HAND SURGERY PROGRESS NOTE FOR DR. HODGE Patient seen and examined at bedside. He states that his hand is sore but it feels much better after the surgery. He is tolerating his diet, ambulating, and going to the bathroom. Objective - Vital Signs/Intake and Output Vital Signs (last 24 hours): Temp Pulse Resp BP Pulse Ox 98.9 F 79 20 144/72 96 02/05/17 07:37 02/05/17 07:37 02/05/17 07:37 02/05/17 07:37 02/05/17 07:37 Intake and Output: 02/05/17 02/05/17 06:59 18:59 Intake Total 1000 Balance 1000 - Medications Medications: Current Medications Enoxaparin Sodium (Lovenox) 40 mg SC DAILY [facility] Potassium Chloride/Dextrose/Sod Cl (Potassium Chl 20 Meq In D5-1/2ns) 1,000 mls @ 100 mls/hr IV .Q10H [facility] Last Admin: 02/05/17 03:32 Dose: Not Given Vancomycin/Sodium Chloride (Vancocin) 1 gm in 200 mls @ 133 mls/hr IVPB Q12H [facility] Stop: 02/10/17 10:01 Lisinopril (Zestril) 10 mg PO DAILY [facility] Last Admin: 02/04/17 10:14 Dose: 10 mg Morphine Sulfate (Morphine) 2 mg IVP Q4 PRN PRN Reason: Pain, moderate (4-7) Last Admin: 02/05/17 06:35 Dose: 2 mg Ondansetron HCl (Zofran Inj) 4 mg IVP Q4 PRN PRN Reason: Nausea/Vomiting Oxycodone/Acetaminophen (Percocet 5/325 Mg Tab) 1 tab PO Q6H PRN PRN Reason: Pain, Mild (1-3) Stop: 02/07/17 00:59 Last Admin: 02/04/17 03:54 Dose: 1 tab Pantoprazole Sodium (Protonix Inj) 40 mg IVP DAILY [facility] Last Admin: 02/04/17 10:19 Dose: 40 mg Pneumococcal Polyvalent Vaccine (Pneumovax 23 Vaccine) 0.5 ml IM .ONCE ONE Stop: 02/06/17 10:01 Saccharomyces Boulardii (Florastor) 250 mg PO BID [facility] Last Admin: 02/04/17 17:17 Dose: 250 mg - Labs Labs: 02/05/17 06:12 02/05/17 06:12 PT 12.2 SECONDS (9.7-12.2) 02/04/17 07:41 INR 1.1 02/04/17 07:41 APTT 25 SECONDS (21-34) 02/04/17 07:41 - Constitutional Appears: Well, Non-toxic, No Acute Distress - Head Exam Head Exam: ATRAUMATIC, NORMAL INSPECTION - Eye Exam Eye Exam: EOMI, Normal appearance - Respiratory Exam Respiratory Exam: NORMAL BREATHING PATTERN. absent: Respiratory Distress - Cardiovascular Exam Cardiovascular Exam: +S1, +S2 - Neurological Exam Neurological Exam: Alert, Awake, Oriented x3 - Psychiatric Exam Psychiatric exam: Normal Affect, Normal Mood - Skin Additional comments: Hand wrapped in dressing, clean, dry, intact Dressing removed, Hazel drain in place (removed) Sutures in place Assessment and Plan - Assessment and Plan (Free Text) Assessment: 52yo M with right MCP abscess s/p Incision & drainage of right MCP joint abscess with debridement and joint washout POD#1 - Afebrile, VSS - No leukocytosis - OR wound cx: Staph Aureus - Hazel drain removed today at bedside - Applied Medihoney to wound, wrapped in kerlex - Every 6 hours, patient should remove dressing, soak hand in soap + water or betadine + water, then apply Medihoney, then rewrap with Kerlex dressing ( continue for 4 days) - Should stay for one more day of IV Abx, then clear for DC home tomorrow from surgical standpoint - FU outpatient with Dr. Hudson or Cleo for suture removal - Discussed plan with Dr. Cleo Villatoro PGY-2
[2017-02-05] MEDS: Saccharomyces Boulardi 250 mg Cap PO SCH ×2 (11:03→17:33)
[2017-02-05] MEDS: Vancomycin 1 gm/NS 200 ml 1 GM/200 ML BAG IVPB SCH ×2 (11:04→21:28)
[2017-02-05] MEDS: Enoxaparin 40 mg Syringe SC SCH (11:34)
--- NOTE | 2017-02-05 14:25 | CP.PCM.CON ---
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 - RENAL Hx Kidney Stones: Yes - ENDOCRINE/METABOLIC Hx Endocrine Disorders: No - HEMATOLOGICAL/ONCOLOGICAL Hx Human Immunodeficiency Virus (HIV): No - INTEGUMENTARY Hx Dermatological Problems: No - MUSCULOSKELETAL/RHEUMATOLOGICAL Hx Arthritis: Yes - GASTROINTESTINAL Hx Gastrointestinal Disorders: No - GENITOURINARY/GYNECOLOGICAL Hx Sexually Transmitted Disorders: No - PSYCHIATRIC Hx Anxiety: Yes Hx Depression: Yes Hx Substance Use: Yes - SURGICAL HISTORY Hx Appendectomy: Yes - ANESTHESIA Hx Anesthesia: Yes Hx Anesthesia Reactions: No Meds Allergies/Adverse Reactions: Allergies Allergy/AdvReac Type Severity Reaction Status Date / Time No Known Allergies Allergy Verified 02/03/17 18:32 - Medications Medications: Current Medications Enoxaparin Sodium (Lovenox) 40 mg SC DAILY [facility] Last Admin: 02/05/17 11:34 Dose: 40 mg Vancomycin/Sodium Chloride (Vancocin) 1 gm in 200 mls @ 133 mls/hr IVPB Q12H [facility] Stop: 02/10/17 10:01 Last Admin: 02/05/17 11:04 Dose: 133 mls/hr Lisinopril (Zestril) 10 mg PO DAILY [facility] Last Admin: 02/05/17 11:04 Dose: 10 mg Ondansetron HCl (Zofran Inj) 4 mg IVP Q4 PRN PRN Reason: Nausea/Vomiting Oxycodone/Acetaminophen (Percocet 5/325 Mg Tab) 1 tab PO Q4 PRN PRN Reason: Pain, Mild (1-3) Stop: 02/08/17 12:01 Pantoprazole Sodium (Protonix Inj) 40 mg IVP DAILY [facility] Last Admin: 02/05/17 11:03 Dose: 40 mg Pneumococcal Polyvalent Vaccine (Pneumovax 23 Vaccine) 0.5 ml IM .ONCE ONE Stop: 02/06/17 10:01 Saccharomyces Boulardii (Florastor) 250 mg PO BID [facility] Last Admin: 02/05/17 11:03 Dose: 250 mg Results - Vital Signs Recent Vital Signs: Last Vital Signs Temp 98.9 F 02/05/17 07:37 Pulse 79 02/05/17 07:37 Resp 20 02/05/17 07:37 BP 144/72 02/05/17 07:37 Pulse Ox 96 02/05/17 07:37 - Labs Result Diagrams: 02/05/17 06:12 02/05/17 06:12 Labs: Laboratory Results - last 24 hr 02/05/17 02/05/17 06:12 06:12 WBC 10.1 RBC 4.25 L Hgb 12.8 Hct 37.4 MCV 87.9 MCH 30.0 MCHC 34.2 RDW 13.2 Plt Count 257 MPV 8.3 Neut % (Auto) 61.5 Lymph % (Auto) 26.6 [place] % (Auto) 10.2 H Eos % (Auto) 1.2 Baso % (Auto) 0.5 Neut # 6.2 Lymph # 2.7 [place] # 1.0 H Eos # 0.1 Baso # 0.0 Sodium 134 Potassium 4.1 Chloride 101 Carbon Dioxide 20 L Anion Gap 17 BUN 13 Creatinine 0.9 Est GFR ( Amer) > 60 Est GFR (Non-Af Amer) > 60 Random Glucose 102 Calcium 8.3 L Phosphorus 3.4 Magnesium 2.1 Total Bilirubin 1.0 AST 18 ALT 24 Alkaline Phosphatase 60 Total Protein 7.1 Albumin 3.7 Globulin 3.4 Albumin/Globulin Ratio 1.1
--- NOTE | 2017-02-05 19:06 | CON ---
DATE: 02/05/2017 CONSULT REQUESTED FOR: MRSA in the hand. HISTORY OF PRESENT ILLNESS: This patient is a 52-year-old male. He has history of hypertension, art hritis, anxiety, depression, and he comes in with infection in his hand, which was going on for the p ast 2 weeks. He was mad that he broke up with his girlfriend. 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 He had received antibiotics, but the pain got worse ; hence he came to the Emergency Room. He has been applying triple antibiotic before, which was not helping him. He is presently in isolation because of MRSA. He denies any history of diabetes and he is feeling a little better. He said they did and I and D. He denies any other skin infections. 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 PAST MEDICAL HISTORY: Significant for hypertension, arthritis, anxiety and depression. PAST SURGICAL HISTORY: He denies. ALLERGIES: He is not allergic to any medicine. FAMILY HISTORY: Mother having diabetes and gout. Mother and father have unknown cancer. SOCIAL HISTORY: Significant for marijuana he uses for his arthritis in the hip. He denies ETOH or t obacco abuse. He is not employed at this time. REVIEW OF SYSTEMS: He denied any ear, nose and throat problems. Denied any dizziness. No palpitati ons, no chest pain, no shortness of breath, no abdominal pain, no nausea, no vomiting. He did come i n with a history of fever, chills, headache, dizziness, lightheadedness. He had some blurring vision which the resident documented. He also complained of diarrhea, but right now he denies it. No urin nina frequency or urgency reported. MEDICATIONS: At the present time, he is on Lovenox, Zestril, Zofran, Percocet, Protonix, Pneumovax, Florastor. He is on vancomycin 1 gram q. 12 hours and he was on Rocephin, which was discontinued. H e had . He had I and D on right MCP joint abscess and debridement and joint washout, so they di d a joint washout. PHYSICAL EXAMINATION: VITAL SIGNS: I find his temperature is 98.9, pulse 79, blood pressure is 144/72, respirations are 20 . He is obese, BMI is 38.3. HEENT: Head is atraumatic. Pupils are reacting to light. NECK: Supple. LESLY is flat. LUNGS: Clear. No crackles or rales present. Chest wall is symmetrical. HEART: S1, S2 is regular. No murmurs appreciated. ABDOMEN: Soft, nontender, no guarding, no rigidity present. EXTREMITIES: No edema, clubbing, or cyanosis. The right hand is swollen, especially at the third MT P. He says there was a drain that was removed. He does have dressing on partially seen. He h as a right MCP joint abscess with debridement and joint washout, postop day 1. Since they did a washo ut, I will have to discuss with the surgeon. He may need IV antibiotics for future. LABORATORY DATA: Show white count is 10.1, hemoglobin 12.8, hematocrit 37.4, platelet count is 257. BUN is 17, creatinine 0.9. Chemistry: Sodium 134, potassium 4.1, chloride 101, CO2 is 20, anion ga p is 17, creatinine is 0.9. CAT scan of the hand shows findings of prominence. This was done on prior to the washout and it says at the level of the fourth metatarsal, there is a prominent parti ally enhancing soft tissue collection, 2.0 x 2.0 x 2.1 extending from the subcutaneous soft tissue to the dorsal cortex of the head of the fourth extending to MCP joint space. The collection appears to be possibly also involving the fourth extensor tendon sheath displacing the tendon radially. This i s concerning for a focal abscess or prominent phlegmon. No osseous destruction to suggest for acute osteomyelitis. If there is a concern for acute osteomyelitis, consider further evaluation with MRI. Correlation with MRI may be helpful to better evaluate tendinous involvement, prominent degenerative changes at the level of the wrist and carpal metatarsal with joint narrowing, subchondral sclerosis and subchondral cyst formation, suggestion of an accessory carpal bone ossicle adjacent to the base o f the third metatarsal bone dorsally where there is prominent degenerative changes at the articulatio n with the base of the third metatarsal and subchondral sclerosis, chronic deformity of head of the f ifth metatarsal bone island, head of the third metatarsal, prominent osteophytosis of the base of the second metatarsal. Degenerative changes are noted. So since they did a washout of the joint, I think I will discuss with the surgeon. Micro-adam, he blancas s Staph aureus in the right hand and the Staph aureus is MRSA. He is on vancomycin, so may have to g et vancomycin IV for the joint infection for at least a minimum of 4 weeks. We will discuss the plan with the primary as well as with the surgeon. Nhan Dunham MD cc: [id number] TT: 02/05/2017 19:05:25 Confirmation # [id number] Dictation # [id number]
[2017-02-05] MEDS: Oxycodone/Acetaminophen 5/325 mg Tab PO PRN (22:11)
--- NOTE | 2017-02-05 23:14 | CARD ---
APPROVED REPORT EKG Measurement Heart [id number] <Conclusion> Normal sinus rhythm Normal ECG
[2017-02-06] MEDS: Oxycodone/Acetaminophen 5/325 mg Tab PO PRN ×3 (02:20→23:25)
[2017-02-06 07:45] LABS: BASO # 0.1 K/uL (0.0-0.2); BASO % 0.6 % (0.0-2.0); EOS # 0.2 K/uL (0.0-0.7); EOS % 2.2 % (0.0-4.0); LYMPH # 2.7 K/uL (1.0-4.3); LYMPH % 30.1 % (20.0-40.0); MEAN CELL VOLUME 88.6 fL (80.0-94.0); MEAN CORPUSCULAR HEMOGLOBIN 30.2 pg (27.0-31.0); MEAN PLATELET VOLUME 8.7 fL (7.2-11.7); MONO # 0.8 K/uL (0.0-0.8); MONO % 9.5 % (0.0-10.0); RED CELL DISTRIBUTION WIDTH 12.9 % (11.5-14.5); WHITE BLOOD COUNT 8.8 K/uL (4.8-10.8)
[2017-02-06 07:47] LABS: CHLORIDE 106 mmol/L (98-107)
[2017-02-06 07:48] LABS: POTASSIUM 4.2 mmol/L (3.6-5.2); SODIUM 140 mmol/L (132-148)
[2017-02-06 07:50] LABS: ALB/GLOB RATIO 1.1 (1.0-2.1); ALKALINE PHOSPHATASE 66 U/L (38-126); ALT/SGPT 24 U/L (21-72); AST/SGOT 21 U/L (17-59); BLOOD UREA NITROGEN 13 mg/dL (9-20); CARBON DIOXIDE 22 mmol/L (22-30); GFR AFRICAN-AMERICAN > 60; GLUCOSE,RANDOM 95 mg/dL (75-110); PHOSPHOROUS 3.8 mg/dL (2.5-4.5); TOTAL PROTEIN 7.9 g/dL (6.3-8.3)
[2017-02-06 07:51] LABS: CALCIUM 9.4 mg/dl (8.6-10.4); MAGNESIUM 2.3 mg/dL (1.6-2.3)
[2017-02-06] MEDS: Enoxaparin 40 mg Syringe SC SCH (09:35)
[2017-02-06] MEDS: Saccharomyces Boulardi 250 mg Cap PO SCH ×2 (09:36→17:56)
[2017-02-06] MEDS ORDERED: Pneumococcal 23-Valent Vaccine IM ONE (10:00)
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
[2017-02-06] MEDS: Vancomycin 1 gm/NS 200 ml 1 GM/200 ML BAG IVPB SCH ×2 (10:44→21:38)
--- NOTE | 2017-02-06 16:57 | RAD ---
PROCEDURE: CHEST RADIOGRAPH, 1 VIEW HISTORY: malpositioned PICC , powerflushed COMPARISON: Comparison is made to previous same-day exam FINDINGS: LUNGS: No significant interval change in the lungs noted since the previous exam small opacities at the lower lungs left more than right seen. PLEURA: No pneumothorax or pleural fluid seen. CARDIOVASCULAR: Normal. OSSEOUS STRUCTURES: No significant abnormalities. VISUALIZED UPPER ABDOMEN: Normal. OTHER FINDINGS: Left-sided PICC line is seen at appropriate position with the tip overlying the right mid to lower mediastinum likely at the distal SVC. IMPRESSION: Appropriate position of the left-sided PICC line with the tip is likely at the distal SVC.
--- NOTE | 2017-02-06 17:15 | RAD ---
PROCEDURE: CHEST RADIOGRAPH, 1 VIEW HISTORY: verify left PICC COMPARISON: 02/04/2017. FINDINGS: The left PICC line is coiled in the subclavian vein. LUNGS: There is linear atelectasis in the left lower lobe and mild pulmonary venous congestion. No focal consolidation. PLEURA: No pneumothorax or pleural fluid seen. CARDIOVASCULAR: The heart remains enlarged. OSSEOUS STRUCTURES: No significant abnormalities. VISUALIZED UPPER ABDOMEN: Normal. OTHER FINDINGS: None. IMPRESSION: 1. Left PICC line is coiled in the subclavian vein. 2. Linear atelectasis in the left lower lobe and mild pulmonary venous congestion.
--- NOTE | 2017-02-06 22:02 | CP.PCM.PCO ---
Physician Communication Note - Physician Communication Note Physician Communication Note: Patient status post I&D of MCP joint Assessment & Plan - Assessment and Plan (Free Text) Assessment: Cultures are growing MRSA and ID feels he would benefit from nursing home IV antibiotics. Packing was removed yesterday and patient started on soaks. Should continue to do so until the skin incision closes.
--- NOTE | 2017-02-06 23:32 | CP.PCM.PN ---
Subjective - Date & Time of Evaluation Date of Evaluation: 02/06/17 Time of Evaluation: 03:20 - Subjective Subjective: dictated Objective - Vital Signs/Intake and Output Vital Signs (last 24 hours): Temp Pulse Resp BP Pulse Ox 98 F 63 20 116/72 95 02/06/17 07:56 02/06/17 07:56 02/06/17 07:56 02/06/17 07:56 02/06/17 07:56 Intake and Output: 02/06/17 02/07/17 18:59 06:59 Intake Total 800 200 Output Total 680 Balance 800 -480 - Medications Medications: Current Medications Enoxaparin Sodium (Lovenox) 40 mg SC DAILY [facility] Last Admin: 02/06/17 09:35 Dose: 40 mg Vancomycin/Sodium Chloride (Vancocin) 1 gm in 200 mls @ 133 mls/hr IVPB Q12H [facility] Stop: 02/10/17 10:01 Last Admin: 02/06/17 21:38 Dose: 133 mls/hr Ceftriaxone Sodium 1 gm/ (Sodium Chloride) 100 mls @ 100 mls/hr IVPB DAILY [facility] Last Admin: 02/06/17 09:34 Dose: 100 mls/hr Lisinopril (Zestril) 10 mg PO DAILY [facility] Last Admin: 02/06/17 09:36 Dose: 10 mg Ondansetron HCl (Zofran Inj) 4 mg IVP Q4 PRN PRN Reason: Nausea/Vomiting Oxycodone/Acetaminophen (Percocet 5/325 Mg Tab) 1 tab PO Q4 PRN PRN Reason: Pain, Mild (1-3) Stop: 02/08/17 12:01 Last Admin: 02/06/17 23:25 Dose: 1 tab Pantoprazole Sodium (Protonix Inj) 40 mg IVP DAILY [facility] Last Admin: 02/06/17 09:35 Dose: 40 mg Saccharomyces Boulardii (Florastor) 250 mg PO BID [facility] Last Admin: 02/06/17 17:56 Dose: 250 mg - Labs Labs: 02/06/17 07:28 02/06/17 07:28 PT 12.2 SECONDS (9.7-12.2) 02/04/17 07:41 INR 1.1 02/04/17 07:41 APTT 25 SECONDS (21-34) 02/04/17 07:41
--- NOTE | 2017-02-07 02:13 | CP.PCM.PN ---
<Mauro Hooker - Last Filed: 02/07/17 02:42> Subjective - Date & Time of Evaluation Date of Evaluation: 02/07/17 Time of Evaluation: 00:45 - Subjective Subjective: PGY 1 Medicine Note- Dr. Christopher's service Pt seen and examined in no acute distress. Pt states that he had an unfortunate experience with the PICC line nurse yesterday afternoon which upset him. He states that he did not feel comfortable when the procedure for PICC line was being performed. He was experiencing some discomfort and did not feel that his concerns were addressed. He thus he asked to speak with the nursing supervisor pumping station afterwards. Patient feels that he deserves an apology and states that he did not receive one. Patient was reassured that the appropriate clinical team members will speak with him regarding the issue. At this time, he denies subjective fevers or chills, nausea, vomiting, diarrhea, constipation, headaches , chest pain or palpitations at this time. Objective - Vital Signs/Intake and Output Vital Signs (last 24 hours): Temp Pulse Resp BP Pulse Ox 98 F 63 20 116/72 95 02/06/17 07:56 02/06/17 07:56 02/06/17 07:56 02/06/17 07:56 02/06/17 07:56 Intake and Output: 02/06/17 02/07/17 18:59 06:59 Intake Total 800 200 Output Total 680 Balance 800 -480 - Medications Medications: Current Medications Enoxaparin Sodium (Lovenox) 40 mg SC DAILY [facility] Last Admin: 02/06/17 09:35 Dose: 40 mg Vancomycin/Sodium Chloride (Vancocin) 1 gm in 200 mls @ 133 mls/hr IVPB Q12H [facility] Stop: 02/10/17 10:01 Last Admin: 02/06/17 21:38 Dose: 133 mls/hr Ceftriaxone Sodium 1 gm/ (Sodium Chloride) 100 mls @ 100 mls/hr IVPB DAILY [facility] Last Admin: 02/06/17 09:34 Dose: 100 mls/hr Lisinopril (Zestril) 10 mg PO DAILY [facility] Last Admin: 02/06/17 09:36 Dose: 10 mg Ondansetron HCl (Zofran Inj) 4 mg IVP Q4 PRN PRN Reason: Nausea/Vomiting Oxycodone/Acetaminophen (Percocet 5/325 Mg Tab) 1 tab PO Q4 PRN PRN Reason: Pain, Mild (1-3) Stop: 02/08/17 12:01 Last Admin: 02/06/17 23:25 Dose: 1 tab Pantoprazole Sodium (Protonix Inj) 40 mg IVP DAILY [facility] Last Admin: 02/06/17 09:35 Dose: 40 mg Saccharomyces Boulardii (Florastor) 250 mg PO BID [facility] Last Admin: 02/06/17 17:56 Dose: 250 mg - Labs Labs: 02/06/17 07:28 02/06/17 07:28 PT 12.2 SECONDS (9.7-12.2) 02/04/17 07:41 INR 1.1 02/04/17 07:41 APTT 25 SECONDS (21-34) 02/04/17 07:41 - Constitutional Appears: Non-toxic, No Acute Distress - Head Exam Head Exam: ATRAUMATIC, NORMAL INSPECTION, NORMOCEPHALIC - Eye Exam Eye Exam: EOMI, Normal appearance, PERRL Pupil Exam: NORMAL ACCOMODATION - ENT Exam ENT Exam: Mucous Membranes Moist - Neck Exam Neck Exam: Full ROM - Respiratory Exam Respiratory Exam: NORMAL BREATHING PATTERN - Cardiovascular Exam Cardiovascular Exam: +S1, +S2 - GI/Abdominal Exam GI & Abdominal Exam: Soft, Normal Bowel Sounds - Extremities Exam Extremities Exam: Normal Capillary Refill. absent: Full ROM Additional comments: R hand dressing c/d/i. dec ROM of right hand, though noted improvement, sensation intact - Back Exam Back Exam: Full ROM - Neurological Exam Neurological Exam: Alert, Awake, CN II-XII Intact - Psychiatric Exam Psychiatric exam: Normal Affect, Normal Mood - Skin Skin Exam: Dry, Normal Color, Warm Assessment and Plan - Assessment and Plan (Free Text) Assessment: 1) Hand Wound * Surgery Dr. 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 Trough 7.5. Next trough 02/08 * c/w Rocephin 1gm ivpb daily (started 02/04) * CT R hand with IV contrast (02/04/17) - prominent soft tissue swelling seen within the dorsal soft tissues at the level 3rd, 4th, and 5th metacarpal heads. Prominent enhancing soft tissue collection. Other incidental findings (please see full report). Prominent partially enhancing soft tissue collection 2.0 X2.0 X2.1 cm extending from the subcutaneous soft tissues to the dorsal cortex of the head of 4th MCP extending to MCP joint space, involve 4th extensor tendon sheath (Focal abscess and/or phlegmon). No gross osseous destruction to suggest for acute osteomyelitis. Prominent degenerative changes at the level of wrist and carpometacarpal basis with joint space narrowing, subchondral sclerosis, osteophytosis, and subchondral cyst formation. Chronic deformity of the head 5ht metacarpal bone. Bone island at the head 3rd metacarpala bone. Prominent osteophytosis at the base of 2nd metacarpal carpal bone. Subchondral cyst formation with degenerative changes at the 1st MCP joint space. (Further details per report) * Blood cultures (02/03/17) - negative for 24 hours X2 * Hand right (02/03/17): MRSA * Finger (02/04/17): Staph Aureus * Percocet 5/325mg 1 tab po q4h prn pain mild * Florastor 250mg PO BID 2) Hypertension * Normotensive * Lisinopril 10mg PO daily * Monitor vitals and adjust accordingly 3) Impaired Glucose tolerance * HbA1c - 5.7 * Advocate for diet and lifestyle modifications 4) Elevated triglycerides and low HDL * Trig - 202-->advocate for diet and lifestyle modifications * recommended OTC fish oil and exercise to build up HDL 5) PPX * Protonix 40mg ivp daily * Lovenox 40mg SC daily * [facility] <Roel Christopher - Last Filed: 03/03/17 15:08> Objective - Vital Signs/Intake and Output Vital Signs (last 24 hours): Temp Pulse Resp BP Pulse Ox 98.1 F 78 20 138/76 95 02/12/17 15:22 02/12/17 15:22 02/12/17 15:22 02/12/17 15:22 02/12/17 15:22 - Labs Labs: 02/12/17 07:07 02/12/17 07:07 PT 12.2 SECONDS (9.7-12.2) 02/04/17 07:41 INR 1.1 02/04/17 07:41 APTT 25 SECONDS (21-34) 02/04/17 07:41 Attending/Attestation - Attestation I have personally seen and examined this patient.: Yes I have fully participated in the care of the patient.: Yes I have reviewed all pertinent clinical information, including history, physical exam and plan: Yes Notes (Text): Patient Seen and examined with the resident. Agree with the resident's evaluation, assessment and plan. 1) Hand Wound 2) Hypertension 3) Impaired Glucose tolerance 4) Elevated triglycerides and low HDL
--- NOTE | 2017-02-07 02:27 | PN ---
DATE: 02/03/2017 SUBJECTIVE: The patient was seen today in the afternoon and patient was doing better but he still sa ys he has a lot of pain. He is avoiding it to take a lot of pain medications as he was told that he can get addicted and still has swelling on the hand as well as the fourth finger and not able to full y extend or flex the fingers of the right hand and the other wound culture was pending at the time I saw him. PHYSICAL EXAMINATION: VITAL SIGNS: T-max is 98, pulse 63, blood pressure 116/72, respirations are 20. HEENT: Head is atraumatic, normocephalic. NECK: Supple. LUNGS: Clear. No crackles or rales present. HEART: S1, S2 regular. ABDOMEN: Soft, nontender. EXTREMITIES: Right hand had a dressing on it and left extremities had no edema, clubbing or cyanosis . Labs were noted. The wound culture came out positive for MRSA and he has been on vancomycin. 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 I discussed the plan with the hand nestoro tyshawn and I told Dr. Gallo about the culture report and the resistant bacteria and patient agrees for the treatment and will get a PICC line in and also monitor the vancomycin peak and trough for now and he will have to be trained to give antibiotics and will need a home IV infusion company. White count i s 8.8, hemoglobin 13.6, hematocrit 40, platelet count is 246 at this time. BUN is 13, creatinine is 1.1. We will monitor that. Will order ESR. His hemoglobin A1c is 5.7, which is good, but will foll ow. IMPRESSION: He had hand trauma and has MRSA infection. Nhan Dunham MD cc: [id number] TT: 02/07/2017 00:11:00 Confirmation # [id number] Dictation # [id number] an
[2017-02-07 06:55] LABS: BASO # 0.1 K/uL (0.0-0.2); EOS # 0.2 K/uL (0.0-0.7); LYMPH # 2.3 K/uL (1.0-4.3); MONO # 0.8 K/uL (0.0-0.8)
[2017-02-07 07:03] LABS: BASO % 0.5 % (0.0-2.0); EOS % 2.1 % (0.0-4.0); HEMATOCRIT 40.4 % (35.0-51.0); LYMPH % 23.4 % (20.0-40.0); MEAN CELL VOLUME 87.4 fL (80.0-94.0); MEAN CORPUSCULAR HEMOGLOBIN 30.4 pg (27.0-31.0); MEAN CORPUSCULAR HGB CONC 34.8 g/dL (33.0-37.0); MEAN PLATELET VOLUME 8.6 fL (7.2-11.7); MONO % 8.2 % (0.0-10.0); NRBC % 0.2 % (0.0-2.0); RED CELL DISTRIBUTION WIDTH 12.9 % (11.5-14.5); WHITE BLOOD COUNT 9.8 K/uL (4.8-10.8)
[2017-02-07 07:10] LABS: CHLORIDE 102 mmol/L (98-107); POTASSIUM 4.2 mmol/L (3.6-5.2); SODIUM 137 mmol/L (132-148)
[2017-02-07 07:12] LABS: AST/SGOT 23 U/L (17-59); CARBON DIOXIDE 23 mmol/L (22-30); GFR AFRICAN-AMERICAN > 60; TOTAL PROTEIN 7.9 g/dL (6.3-8.3)
[2017-02-07 07:13] LABS: ALKALINE PHOSPHATASE 72 U/L (38-126); ALT/SGPT 26 U/L (21-72); BLOOD UREA NITROGEN 15 mg/dL (9-20); CALCIUM 8.4 mg/dl (8.6-10.4); GLUCOSE,RANDOM 95 mg/dL (75-110); MAGNESIUM 2.3 mg/dL (1.6-2.3); PHOSPHOROUS 4.1 mg/dL (2.5-4.5)
--- NOTE | 2017-02-07 08:58 | CP.PCM.PN ---
Addendum entered and electronically signed by Noreen Spann DO 02/07/17 08: 59: d dimer cancelled because it will be positive secondary to hand wound Original Note: <Noreen Spann - Last Filed: 02/07/17 08:56> Subjective - Date & Time of Evaluation Date of Evaluation: 02/07/17 Time of Evaluation: 08:00 - Subjective Subjective: PGY2 paged note - Paged for chest pain. Patient reports waking up with substernal, non reproducible, non radiating chest pain associated with SOB and diaphoresis. Patient reports increased pain with deep breaths. Patient denies acid reflux or being able to reproduce pain with palpation or moving arms or sitting up or laying down. Patient has never had this pain before. D dimer, REAGAN and EKG ordered ASA, Crestor and Nitro ordered. Will f/u results. Objective - Vital Signs/Intake and Output Vital Signs (last 24 hours): Temp Pulse Resp BP Pulse Ox 98 F 63 20 116/72 95 02/06/17 07:56 02/06/17 07:56 02/06/17 07:56 02/06/17 07:56 02/06/17 07:56 Intake and Output: 02/07/17 02/07/17 06:59 18:59 Intake Total 200 Output Total 680 Balance -480 - Medications Medications: Current Medications Aspirin (Aspirin) 325 mg PO DAILY [facility] Enoxaparin Sodium (Lovenox) 40 mg SC DAILY [facility] Last Admin: 02/06/17 09:35 Dose: 40 mg Vancomycin/Sodium Chloride (Vancocin) 1 gm in 200 mls @ 133 mls/hr IVPB Q12H [facility] Stop: 02/10/17 10:01 Last Admin: 02/06/17 21:38 Dose: 133 mls/hr Ceftriaxone Sodium 1 gm/ (Sodium Chloride) 100 mls @ 100 mls/hr IVPB DAILY [facility] Last Admin: 02/06/17 09:34 Dose: 100 mls/hr Lisinopril (Zestril) 10 mg PO DAILY [facility] Last Admin: 02/06/17 09:36 Dose: 10 mg Ondansetron HCl (Zofran Inj) 4 mg IVP Q4 PRN PRN Reason: Nausea/Vomiting Oxycodone/Acetaminophen (Percocet 5/325 Mg Tab) 1 tab PO Q4 PRN PRN Reason: Pain, Mild (1-3) Stop: 02/08/17 12:01 Last Admin: 02/06/17 23:25 Dose: 1 tab Pantoprazole Sodium (Protonix Inj) 40 mg IVP DAILY [facility] Last Admin: 02/06/17 09:35 Dose: 40 mg Rosuvastatin Calcium (Crestor) 10 mg PO HS [facility] Saccharomyces Boulardii (Florastor) 250 mg PO BID [facility] Last Admin: 02/06/17 17:56 Dose: 250 mg - Labs Labs: 02/07/17 06:46 02/07/17 06:46 PT 12.2 SECONDS (9.7-12.2) 02/04/17 07:41 INR 1.1 02/04/17 07:41 APTT 25 SECONDS (21-34) 02/04/17 07:41 <Roel Christopher - Last Filed: 03/03/17 15:08> Objective - Vital Signs/Intake and Output Vital Signs (last 24 hours): Temp Pulse Resp BP Pulse Ox 98.1 F 78 20 138/76 95 02/12/17 15:22 02/12/17 15:22 02/12/17 15:22 02/12/17 15:22 02/12/17 15:22 - Labs Labs: 02/12/17 07:07 02/12/17 07:07 PT 12.2 SECONDS (9.7-12.2) 02/04/17 07:41 INR 1.1 02/04/17 07:41 APTT 25 SECONDS (21-34) 02/04/17 07:41 Attending/Attestation - Attestation I have personally seen and examined this patient.: Yes I have fully participated in the care of the patient.: Yes I have reviewed all pertinent clinical information, including history, physical exam and plan: Yes Notes (Text): Patient Seen and examined with the resident. Agree with the resident's evaluation, assessment and plan. 1) Hand Wound 2) Hypertension 3) Impaired Glucose tolerance 4) Elevated triglycerides and low HDL
[2017-02-07] MEDS: Saccharomyces Boulardi 250 mg Cap PO SCH ×2 (10:24→17:23)
[2017-02-07] MEDS: Enoxaparin 40 mg Syringe SC SCH (10:24)
[2017-02-07] MEDS: Vancomycin 1 gm/NS 200 ml 1 GM/200 ML BAG IVPB SCH ×2 (10:24→21:52)
[2017-02-07] MEDS: Oxycodone/Acetaminophen 5/325 mg Tab PO PRN ×2 (10:32→21:55)
--- NOTE | 2017-02-07 11:44 | PCM.PSYCH ---
Initial Psychiatric Evaluation - Initial Psychiatric Evaluation Type of Admission: Voluntary Legal Status: Capacity Chief Complaint (in patient's own words): "Depressed" History of Present Illness and Precipitating Events: The patient is seen, chart reviewed and case discussed. 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 He used to live with his girlfriend in [place] but now they broke up and he is homeless. He says he can go back and live with a friend. He is planning on appealing his disability denial. The patient says his been depressed more than 2 weeks and has poor sleep, low energy and anger outbursts, low self-esteem and anhedonia. He has several stressors in his life one being multiple medical conditions. He is also stressed about his financial and housing situation. He is here because he fractured his knuckles when he punched a thick glass, and developed MRSA. Denies suicidal ideation but he states he felt like suicidal after the breakup and even went to [place] [facility], but did not get admitted. No manic or psychotic symptoms elicited. Past psych history: He says he attempted suicide with 10 Percocets in 2012 and went to [facility] but they admitted him to medicine and psychiatry was consulted. He did not use any outpatient meds, nor followed up. He denies all drug and alcohol use past and present, except for marijuana which she says he uses for pain. 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, rule out rheumatoid arthritis, hip and shoulder pain, high blood pressure Current Medications: Active Medications Generic Name Dose Route Start Last Admin Trade Name Daly PRN Reason Stop Dose Admin Aspirin 325 mg 02/07/17 10:02/07/17 10:24 Aspirin PO 325 mg DAILY [facility] Administration Enoxaparin Sodium 40 mg 02/05/17 11:00 02/07/17 10:24 Lovenox SC 40 mg DAILY [facility] Administration Escitalopram Oxalate 10 mg 02/07/17 11:45 Lexapro PO DAILY [facility] Vancomycin/Sodium Chloride 1 gm in 200 mls @ 133 mls/hr 02/05/17 10:00 10:24 Vancocin IVPB 02/10/17 10:01 133 mls/hr Q12H [facility] Administration Ceftriaxone Sodium 1 gm/ 100 mls @ 100 mls/hr 02/06/17 10:00 02/07/17 10:24 Sodium Chloride IVPB 100 mls/hr DAILY [facility] Administration Lisinopril 10 mg 02/04/17 10:00 02/07/17 10:24 Zestril PO 10 mg DAILY [facility] Administration Nitroglycerin 0.4 mg 02/07/17 08:55 Nitrostat Sl Tab SL Q5M PRN chest pain Ondansetron HCl 4 mg 02/04/17 14:36 Zofran Inj IVP Q4 PRN Nausea/Vomiting Oxycodone/Acetaminophen 1 tab 02/05/17 11:43 02/07/17 10:32 Percocet 5/325 Mg Tab PO 02/08/17 12:01 1 tab Q4 PRN Administration Pain, Mild (1-3) Pantoprazole Sodium 40 mg 02/04/17 10:00 02/07/17 10:24 Protonix Inj IVP 40 mg DAILY [facility] Administration Rosuvastatin Calcium 10 mg 02/07/17 22:00 Crestor PO HS [facility] Saccharomyces Boulardii 250 mg 02/04/17 18:00 02/07/17 10:24 Florastor PO 250 mg BID [facility] Administration Trazodone HCl 50 mg 02/07/17 22:00 Desyrel PO HS [facility] Past Psychiatric History - Past Psychiatric History Previous Treatment History: None Pertinent Medical Hx (Current Medical&Sleep Prob, Allergies): Allergies Allergy/AdvReac Type Severity Reaction Status Date / Time No Known Allergies Allergy Verified 02/03/17 18:32 Lisinopril [Zestril] 10 mg PO DAILY 02/03/17 Review of Systems - Neurological Neurological: UNREMARKABLE - Psychiatric Psychiatric: Abnormal Sleep Pattern, Anhedonia, Anxiety, Depression, Difficulty Concentrating, Irritability. absent: Auditory Hallucinations, Hallucinations, Homicidal Ideation, Suicidal Ideation Mental Status Examination - Personal Presentation Personal Presentation: Looks older than stated age - Affect Affect: Constricted - Motor Activity Motor Activity: Calm - Reliability in Providing Information Reliability in Providing Information: Good - Speech Speech: Organized - Mood Mood: Depressed, Anxious - Formal Thought Process Formal Thought Process: No Impairment - Cognitive Functions Orientation: Person, Place, Situation, Time Sensorium: Alert Attention/Concentration: Attentive Estimate of Intelligence: Average Judgement: Intact, as evidence by: Insight regarding need for hospitalization Memory: Recent intact, as evidence by: Ability to recall events of the day, Remote intact, as evidenced by: Abilit to recall sig. life events - Risk Risk: Withdrawal, Diminished functioning - Strength & Assets Inventory Strength & Assets Inventory: Employment history, Cooperative - Limitations Limitations: Living alone, Other (break up) DSM 5 DX - DSM 5 DSM 5 Diagnosis: Major depression, recurrent, severe, without psychosis HILARY r/o personality d/o - Recommended/Plan of Treatment Treatment Recommendations and Plan of Treatment: Lexapro for depression and HILARY Trazodone for insomnia Support and psychoeducation CBT Refer to outpatient psychiatry 32 minutes
--- NOTE | 2017-02-07 22:08 | CP.PCM.PCO ---
Physician Communication Note - Physician Communication Note Physician Communication Note: Patient with MRSA in operative cultures after I&D of right ring finger. Assessment & Plan - Assessment and Plan (Free Text) Assessment: R hand no cellulitis, no erythem. No pus from incision. No foul odor. Stiffness to the fingers, minor tendon lag to ring and long fingers from swelling. Plan: Patient with MRSA in MCP joint. ID recommends IV antibiotics. Patient says he is upset because when the PICC line was placed, he heard the set up mold technician and the PICC line nurse discussing his line placement and that at some point it was coiled. While the initial PICC line was coiled, it was repositioned and the last xray shows PICC line in good position and is being used currently without problem. Patient has already spoken to nursing nuclear powerplant supervisor to log a formal complaint and wanted to inform me as well. He is upset with how he was treated. I have advised him that he spoke with correct personal already, the nursing nuclear powerplant supervisor, and to follow up with her. Patient was started on soaks which he should continue to do even after discharge. Soak for 10-15 min with bedadine 20 cc in 100 cc of saline or warm water every 3-4 hrs during wake time. Re-cover with Medihoney and gauze between soaks.
[2017-02-08] MEDS: Oxycodone/Acetaminophen 5/325 mg Tab PO PRN (06:39)
--- NOTE | 2017-02-08 08:09 | CP.PCM.PN ---
Addendum entered and electronically signed by Jacek Noriega DO 02/08/17 12:36: started on Tramadol 25mg HS PRN Ordered PT/OT Original Note: <Jacek Noriega - Last Filed: 02/08/17 10:54> Subjective - Date & Time of Evaluation Date of Evaluation: 02/08/17 Time of Evaluation: 08:00 - Subjective Subjective: Medicine Note- Hospitalist Service Patient was seen and examined at bedside. Patient reports no acute complaints at this time. No problems overnight. Patient states he has concerns about his PICC line, as he has discussed with multiple hospital staff. Patient was reassured that it is currently functioning normally and will be monitored. No events overnight, per nursing. Objective - Vital Signs/Intake and Output Vital Signs (last 24 hours): Temp Pulse Resp BP Pulse Ox 98.3 F 69 20 137/82 96 02/07/17 23:15 02/07/17 23:15 02/07/17 23:15 02/07/17 23:15 02/07/17 23:15 Intake and Output: 02/08/17 02/08/17 06:59 18:59 Intake Total 320 Balance 320 - Medications Medications: Current Medications Aspirin (Aspirin) 325 mg PO DAILY [facility] Last Admin: 02/07/17 10:24 Dose: 325 mg Enoxaparin Sodium (Lovenox) 40 mg SC DAILY [facility] Last Admin: 02/07/17 10:24 Dose: 40 mg Escitalopram Oxalate (Lexapro) 10 mg PO DAILY [facility] Last Admin: 02/07/17 12:05 Dose: 10 mg Vancomycin/Sodium Chloride (Vancocin) 1 gm in 200 mls @ 133 mls/hr IVPB Q12H [facility] Stop: 02/10/17 10:01 Last Admin: 02/07/17 21:52 Dose: 133 mls/hr Ceftriaxone Sodium 1 gm/ (Sodium Chloride) 100 mls @ 100 mls/hr IVPB DAILY [facility] Last Admin: 02/07/17 10:24 Dose: 100 mls/hr Lisinopril (Zestril) 10 mg PO DAILY [facility] Last Admin: 02/07/17 10:24 Dose: 10 mg Nitroglycerin (Nitrostat Sl Tab) 0.4 mg SL Q5M PRN PRN Reason: chest pain Ondansetron HCl (Zofran Inj) 4 mg IVP Q4 PRN PRN Reason: Nausea/Vomiting Oxycodone/Acetaminophen (Percocet 5/325 Mg Tab) 1 tab PO Q4 PRN PRN Reason: Pain, Mild (1-3) Stop: 02/08/17 12:01 Last Admin: 02/08/17 06:39 Dose: 1 tab Pantoprazole Sodium (Protonix Inj) 40 mg IVP DAILY [facility] Last Admin: 02/07/17 10:24 Dose: 40 mg Rosuvastatin Calcium (Crestor) 10 mg PO HS [facility] Last Admin: 02/07/17 21:21 Dose: 10 mg Saccharomyces Boulardii (Florastor) 250 mg PO BID [facility] Last Admin: 02/07/17 17:23 Dose: 250 mg Trazodone HCl (Desyrel) [address] [facility] Last Admin: 02/07/17 21:21 Dose: 50 mg - Labs Labs: 02/07/17 06:46 02/07/17 06:46 PT 12.2 SECONDS (9.7-12.2) 02/04/17 07:41 INR 1.1 02/04/17 07:41 APTT 25 SECONDS (21-34) 02/04/17 07:41 - Constitutional Appears: Non-toxic, No Acute Distress - Head Exam Head Exam: ATRAUMATIC, NORMAL INSPECTION, NORMOCEPHALIC - Eye Exam Pupil Exam: NORMAL ACCOMODATION - ENT Exam ENT Exam: Mucous Membranes Moist - Respiratory Exam Respiratory Exam: Clear to Ausculation Bilateral, Rales, NORMAL BREATHING PATTERN. absent: Rhonchi, Wheezes - Cardiovascular Exam Cardiovascular Exam: REGULAR RHYTHM, +S1, +S2 - GI/Abdominal Exam GI & Abdominal Exam: Soft, Normal Bowel Sounds. absent: Tenderness, Diminished Bowel Sounds, Hernia, Hypoactive Bowel Sounds - Extremities Exam Extremities Exam: Normal Capillary Refill, Normal Inspection - Neurological Exam Neurological Exam: Alert, Awake, Oriented x3 - Psychiatric Exam Psychiatric exam: Normal Affect, Normal Mood - Skin Skin Exam: Dry, Intact, Normal Color, Warm Assessment and Plan - Assessment and Plan (Free Text) Assessment: 1) Hand Wound * Surgery Dr. Hudson consulted-->help appreciated * MAURICIO Rizo consulted - help appreciated -> PICC placed for residential abx for MRSA * Per surgery, recommended for applied Medihoney to wound, wrapped in kerlex; soaks until skin incision closes * Wound culture - + MRSA, Staph Aureus-->resistant to Clindamycin * Started on Vancomycin 1gm IVPB Q12 (started 02/05) - will obtain trough before 4th dose. Trough 7.5. Next trough 02/08 * c/w Rocephin 1gm ivpb daily (started 02/04) * CT R hand with IV contrast (02/04/17) - prominent soft tissue swelling seen within the dorsal soft tissues at the level 3rd, 4th, and 5th metacarpal heads. Prominent enhancing soft tissue collection. Other incidental findings (please see full report). Prominent partially enhancing soft tissue collection 2.0 X2.0 X2.1 cm extending from the subcutaneous soft tissues to the dorsal cortex of the head of 4th MCP extending to MCP joint space, involve 4th extensor tendon sheath (Focal abscess and/or phlegmon). No gross osseous destruction to suggest for acute osteomyelitis. Prominent degenerative changes at the level of wrist and carpometacarpal basis with joint space narrowing, subchondral sclerosis, osteophytosis, and subchondral cyst formation. Chronic deformity of the head 5ht metacarpal bone. Bone island at the head 3rd metacarpala bone. Prominent osteophytosis at the base of 2nd metacarpal carpal bone. Subchondral cyst formation with degenerative changes at the 1st MCP joint space. (Further details per report) * Blood cultures (02/03/17) - negative for 24 hours X2 * Hand right (02/03/17): MRSA * Finger (02/04/17): Staph Aureus * Percocet 5/325mg 1 tab po q4h prn pain mild * Florastor 250mg PO BID 2) Hypertension * Normotensive * Lisinopril 10mg PO daily * Monitor vitals and adjust accordingly 3) Impaired Glucose tolerance * HbA1c - 5.7 * Advocate for diet and lifestyle modifications 4) Elevated triglycerides and low HDL * Trig - 202-->advocate for diet and lifestyle modifications * recommended OTC fish oil and exercise to build up HDL 5) PPX * Protonix 40mg ivp daily * Lovenox 40mg SC daily * SCDs <Roel Christopher - Last Filed: 03/03/17 15:10> Objective - Vital Signs/Intake and Output Vital Signs (last 24 hours): Temp Pulse Resp BP Pulse Ox 98.1 F 78 20 138/76 95 02/12/17 15:22 02/12/17 15:22 02/12/17 15:22 02/12/17 15:22 02/12/17 15:22 - Labs Labs: 02/12/17 07:07 02/12/17 07:07 PT 12.2 SECONDS (9.7-12.2) 02/04/17 07:41 INR 1.1 02/04/17 07:41 APTT 25 SECONDS (21-34) 02/04/17 07:41 Attending/Attestation - Attestation I have personally seen and examined this patient.: Yes I have fully participated in the care of the patient.: Yes I have reviewed all pertinent clinical information, including history, physical exam and plan: Yes Notes (Text): Patient Seen and examined with the resident. Agree with the resident's evaluation, assessment and plan. 1) Hand Wound 2) Hypertension 3) Impaired Glucose tolerance 4) Elevated triglycerides and low HDL
[2017-02-08 08:29] LABS: BASO # 0.1 K/uL (0.0-0.2); BASO % 0.7 % (0.0-2.0); EOS # 0.3 K/uL (0.0-0.7); EOS % 2.7 % (0.0-4.0); HEMATOCRIT 43.1 % (35.0-51.0); LYMPH # 3.2 K/uL (1.0-4.3); LYMPH % 26.2 % (20.0-40.0); MEAN CELL VOLUME 88.6 fL (80.0-94.0); MEAN CORPUSCULAR HEMOGLOBIN 28.9 pg (27.0-31.0); MEAN CORPUSCULAR HGB CONC 32.7 g/dL (33.0-37.0); MEAN PLATELET VOLUME 9.1 fL (7.2-11.7); MONO # 1.2 K/uL (0.0-0.8); MONO % 9.3 % (0.0-10.0); NRBC % 0.4 % (0.0-2.0); RED CELL DISTRIBUTION WIDTH 12.7 % (11.5-14.5); WHITE BLOOD COUNT 12.4 K/uL (4.8-10.8)
[2017-02-08 08:43] LABS: CHLORIDE 105 mmol/L (98-107)
[2017-02-08 08:44] LABS: SODIUM 142 mmol/L (132-148)
[2017-02-08 08:46] LABS: ALB/GLOB RATIO 1.1 (1.0-2.1); ALKALINE PHOSPHATASE 69 U/L (38-126); AST/SGOT 26 U/L (17-59); BILIRUBIN,TOTAL 0.8 mg/dL (0.2-1.3); BLOOD UREA NITROGEN 17 mg/dL (9-20); CARBON DIOXIDE 25 mmol/L (22-30); GFR AFRICAN-AMERICAN > 60; GLUCOSE,RANDOM 93 mg/dL (75-110); TOTAL PROTEIN 7.9 g/dL (6.3-8.3)
[2017-02-08 08:47] LABS: ALT/SGPT 31 U/L (21-72); CALCIUM 9.2 mg/dl (8.6-10.4); MAGNESIUM 2.4 mg/dL (1.6-2.3); PHOSPHOROUS 3.6 mg/dL (2.5-4.5)
[2017-02-08] MEDS: Enoxaparin 40 mg Syringe SC SCH (10:00)
[2017-02-08] MEDS: Saccharomyces Boulardi 250 mg Cap PO SCH ×2 (10:50→18:10)
[2017-02-08] MEDS: Vancomycin 1 gm/NS 200 ml 1 GM/200 ML BAG IVPB SCH ×2 (10:52→21:22)
--- NOTE | 2017-02-08 11:46 | CP.PCM.PN ---
Subjective - Date & Time of Evaluation Date of Evaluation: 02/08/17 Time of Evaluation: 11:44 - Subjective Subjective: Surgery: Dr. Gallo Pt seen and examined. Resting comfortably in bed. Has discomfort in R hand. Pain is worse when it is not elevated. Pt soaked hand and placed new dressing just prior to exam. Objective - Vital Signs/Intake and Output Vital Signs (last 24 hours): Temp Pulse Resp BP Pulse Ox 98.8 F 67 18 125/74 94 L 02/08/17 07:25 02/08/17 07:25 02/08/17 07:25 02/08/17 07:25 02/08/17 07:25 Intake and Output: 02/08/17 02/08/17 06:59 18:59 Intake Total 320 Balance 320 - Medications Medications: Current Medications Aspirin (Aspirin) 325 mg PO DAILY [facility] Last Admin: 02/08/17 10:50 Dose: 325 mg Enoxaparin Sodium (Lovenox) 40 mg SC DAILY [facility] Last Admin: 02/07/17 10:24 Dose: 40 mg Escitalopram Oxalate (Lexapro) 10 mg PO DAILY [facility] Last Admin: 02/08/17 10:50 Dose: 10 mg Vancomycin/Sodium Chloride (Vancocin) 1 gm in 200 mls @ 133 mls/hr IVPB Q12H [facility] Stop: 02/10/17 10:01 Last Admin: 02/08/17 10:52 Dose: 133 mls/hr Ceftriaxone Sodium 1 gm/ (Sodium Chloride) 100 mls @ 100 mls/hr IVPB DAILY [facility] Last Admin: 02/08/17 10:51 Dose: 100 mls/hr Lisinopril (Zestril) 10 mg PO DAILY [facility] Last Admin: 02/08/17 10:50 Dose: 10 mg Nitroglycerin (Nitrostat Sl Tab) 0.4 mg SL Q5M PRN PRN Reason: chest pain Ondansetron HCl (Zofran Inj) 4 mg IVP Q4 PRN PRN Reason: Nausea/Vomiting Oxycodone/Acetaminophen (Percocet 5/325 Mg Tab) 1 tab PO Q4 PRN PRN Reason: Pain, Mild (1-3) Stop: 02/08/17 12:01 Last Admin: 02/08/17 06:39 Dose: 1 tab Pantoprazole Sodium (Protonix Inj) 40 mg IVP DAILY [facility] Last Admin: 02/08/17 10:50 Dose: 40 mg Rosuvastatin Calcium (Crestor) 10 mg PO HS [facility] Last Admin: 02/07/17 21:21 Dose: 10 mg Saccharomyces Boulardii (Florastor) 250 mg PO BID [facility] Last Admin: 02/08/17 10:50 Dose: 250 mg Trazodone HCl (Desyrel) 50 mg PO HS [facility] Last Admin: 02/07/17 21:21 Dose: 50 mg - Labs Labs: 02/08/17 08:14 02/08/17 08:14 PT 12.2 SECONDS (9.7-12.2) 02/04/17 07:41 INR 1.1 02/04/17 07:41 APTT 25 SECONDS (21-34) 02/04/17 07:41 - Constitutional Appears: Non-toxic, No Acute Distress - Head Exam Head Exam: ATRAUMATIC, NORMOCEPHALIC - Eye Exam Eye Exam: EOMI - ENT Exam ENT Exam: Mucous Membranes Moist - Neck Exam Neck Exam: Full ROM - Respiratory Exam Respiratory Exam: NORMAL BREATHING PATTERN. absent: Accessory Muscle Use, Respiratory Distress - Back Exam Additional comments: R hand, dressing in place, C/D/I, decreased ROM at MCPJ 2/2 pain, sensation intact, tender to palpation - Neurological Exam Neurological Exam: Alert, Awake, Oriented x3 Assessment and Plan - Assessment and Plan (Free Text) Assessment: 52M w. septic R MCPJ, s/p I&D, POD#4 -soak hand in betadine/saline 10-15 minutes every 4 hours -Redress hand sayra rodriguez over ID site -abx per ID -keep hand elevated -d/w attending Zoraitis PGY2
[2017-02-08] MEDS ORDERED: Tramadol 25 mg PO PRN (12:34)
[2017-02-09 07:38] LABS: CHLORIDE 100 mmol/L (98-107); SODIUM 138 mmol/L (132-148)
[2017-02-09 07:40] LABS: BILIRUBIN,TOTAL 0.7 mg/dL (0.2-1.3); GFR AFRICAN-AMERICAN > 60
[2017-02-09 07:41] LABS: ALB/GLOB RATIO 1.1 (1.0-2.1); ALKALINE PHOSPHATASE 77 U/L (38-126); ALT/SGPT 37 U/L (21-72); AST/SGOT 26 U/L (17-59); BLOOD UREA NITROGEN 16 mg/dL (9-20); CARBON DIOXIDE 25 mmol/L (22-30); GLUCOSE,RANDOM 83 mg/dL (75-110); PHOSPHOROUS 3.7 mg/dL (2.5-4.5); TOTAL PROTEIN 8.5 g/dL (6.3-8.3)
[2017-02-09 07:42] LABS: CALCIUM 9.3 mg/dl (8.6-10.4); MAGNESIUM 2.1 mg/dL (1.6-2.3)
[2017-02-09 07:57] LABS: NRBC % 0.3 % (0.0-2.0)
[2017-02-09 08:19] LABS: BASO # 0.1 K/uL (0.0-0.2); BASO % 1.4 % (0.0-2.0); EOS # 0.3 K/uL (0.0-0.7); EOS % 2.9 % (0.0-4.0); HEMATOCRIT 46.7 % (35.0-51.0); LYMPH # 2.5 K/uL (1.0-4.3); LYMPH % 26.2 % (20.0-40.0); MEAN CELL VOLUME 88.7 fL (80.0-94.0); MEAN CORPUSCULAR HEMOGLOBIN 29.7 pg (27.0-31.0); MEAN CORPUSCULAR HGB CONC 33.4 g/dL (33.0-37.0); MEAN PLATELET VOLUME 9.5 fL (7.2-11.7); MONO # 0.7 K/uL (0.0-0.8); RED CELL DISTRIBUTION WIDTH 13.1 % (11.5-14.5); WHITE BLOOD COUNT 9.6 K/uL (4.8-10.8)
--- NOTE | 2017-02-09 12:00 | CP.PCM.PCO ---
Physician Communication Note - Physician Communication Note Physician Communication Note: Patient doing well Assessment & Plan - Assessment and Plan (Free Text) Assessment: Hand swelling about the same but fingers less swollen and less stiff. No cellulitis, minimal drainage, no pus. 52 year old with left index finger MCP joint infection. IV antibitoics as per ID Follow up with Dr. Beverly or me in the office after discharge.
[2017-02-09] MEDS: Vancomycin 1 gm/NS 200 ml 1 GM/200 ML BAG IVPB SCH (12:06)
[2017-02-09] MEDS: Enoxaparin 40 mg Syringe SC SCH (12:07)
[2017-02-09] MEDS: Saccharomyces Boulardi 250 mg Cap PO SCH ×2 (12:07→17:26)
--- NOTE | 2017-02-09 14:22 | PCM.PYCHPN ---
Psychiatric Progress Note - Psychiatric Progress Note Patient seen today, length of contact: 16 min Patient Chief Complaint: "I feel better" Problems Identified/Issues Discussed: The pt is seen, chart reviewed, case discussed with staff. Support given, CBT used briefly No new symptoms reported, improving slowly and needs some more time No SEs from medications, risks discussed. After care discussed, he will continue meds for another 6 months. Medication Change: No Medical Record Reviewed: Yes Mental Status Examination - Cognitive Function Orientation: Person, Place, Situation, Time Memory: Intact Attention: WNL Concentration: Poor Association: WNL Fund of Knowledge: WNL - Mood Mood: Depressed (much less), Anxious - Affect Affect: Constricted - Speech Speech: Appropriate - Formal Thought Process Formal Thought Process: No Impairment - Suicidal Ideation Suicidal Ideation: No - Homicidal Ideation Homicidal Ideation: No Goal/Treatment Plan - Goal/Treatment Plan Need for Continued Stay: Other (medical reasons) Progress Toward Problem(s) and Goals/Treatment Plan: Lexapro for depression and HILARY Trazodone for insomnia Support and psychoeducation CBT Refer to outpatient psychiatry
--- NOTE | 2017-02-09 20:49 | CARD ---
APPROVED REPORT EKG Measurement Heart [id number] <Conclusion> Sinus tachycardia Possible Left atrial enlargement Borderline ECG
--- NOTE | 2017-02-09 20:54 | CP.PCM.PN ---
<TuckerNayabenjamín E - Last Filed: 02/09/17 21:34> Subjective - Date & Time of Evaluation Date of Evaluation: 02/09/17 Time of Evaluation: 09:45 - Subjective Subjective: Medicine -Note: Dr. Christopher Patient was seen and examined at bedside. Patient had no event overnight. Patient states that he is doing well and has moderate discomfort. Patient is tolerating diet. Patient is moving his right hand well and is able to change his dressing on his own. Patient's PICC line is intact. Patient denies chest pain, sob, nausea, vomiting, fever, chills, abd pain, diarrhea, constipation and urinary symptoms. Objective - Vital Signs/Intake and Output Vital Signs (last 24 hours): Temp Pulse Resp BP Pulse Ox 98.2 F 73 20 135/77 95 02/09/17 15:34 02/09/17 15:34 02/09/17 15:34 02/09/17 15:34 02/09/17 15:34 Intake and Output: 02/09/17 02/10/17 18:59 06:59 Intake Total 120 Balance 120 - Medications Medications: Current Medications Aspirin (Aspirin) 325 mg PO DAILY [facility] Last Admin: 02/09/17 12:07 Dose: 325 mg Enoxaparin Sodium (Lovenox) 40 mg SC DAILY [facility] Last Admin: 02/09/17 12:07 Dose: 40 mg Escitalopram Oxalate (Lexapro) 10 mg PO DAILY [facility] Last Admin: 02/09/17 12:07 Dose: 10 mg Ceftriaxone Sodium 1 gm/ (Sodium Chloride) 100 mls @ 100 mls/hr IVPB DAILY [facility] Last Admin: 02/09/17 12:06 Dose: 100 mls/hr Vancomycin HCl 1,500 mg/ (Sodium Chloride) 500 mls @ 166.6 mls/hr IVPB Q12H [facility] Lisinopril (Zestril) 10 mg PO DAILY [facility] Last Admin: 02/09/17 12:07 Dose: 10 mg Nitroglycerin (Nitrostat Sl Tab) 0.4 mg SL Q5M PRN PRN Reason: chest pain Ondansetron HCl (Zofran Inj) 4 mg IVP Q4 PRN PRN Reason: Nausea/Vomiting Oxycodone HCl (Oxycontin Extended Release Tab) 10 mg PO Q12 [facility] Stop: 02/12/17 22:01 Oxycodone/Acetaminophen (Percocet 5/325 Mg Tab) 1 tab PO Q6H PRN PRN Reason: Pain, severe (8-10) Stop: 02/12/17 14:47 Pantoprazole Sodium (Protonix Inj) 40 mg IVP DAILY [facility] Last Admin: 02/09/17 12:07 Dose: 40 mg Rosuvastatin Calcium (Crestor) 10 mg PO HS [facility] Last Admin: 02/08/17 21:22 Dose: 10 mg Saccharomyces Boulardii (Florastor) 250 mg PO BID [facility] Last Admin: 02/09/17 17:26 Dose: 250 mg Tramadol HCl (Ultram) 25 mg PO HS PRN PRN Reason: pain Last Admin: 02/08/17 21:21 Dose: 25 mg Trazodone HCl (Desyrel) 50 mg PO HS [facility] Last Admin: 02/08/17 21:22 Dose: 50 mg - Labs Labs: 02/09/17 07:19 02/09/17 07:19 PT 12.2 SECONDS (9.7-12.2) 02/04/17 07:41 INR 1.1 02/04/17 07:41 APTT 25 SECONDS (21-34) 02/04/17 07:41 - Constitutional Appears: Well, No Acute Distress - Head Exam Head Exam: NORMOCEPHALIC - Eye Exam Eye Exam: EOMI, Normal appearance - ENT Exam ENT Exam: Mucous Membranes Moist - Respiratory Exam Respiratory Exam: Clear to Ausculation Bilateral, NORMAL BREATHING PATTERN - Cardiovascular Exam Cardiovascular Exam: REGULAR RHYTHM, +S1, +S2 - GI/Abdominal Exam GI & Abdominal Exam: Soft (Non-distended, Non-tender), Normal Bowel Sounds - Extremities Exam Extremities Exam: Normal Capillary Refill, Normal Inspection - Neurological Exam Neurological Exam: Alert, Awake, Oriented x3 - Psychiatric Exam Psychiatric exam: Normal Affect, Normal Mood - Skin Skin Exam: Dry, Normal Color, Warm Assessment and Plan - Assessment and Plan (Free Text) Assessment: 1) Hand Wound * Surgery Dr. 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 Trough 7.5. Next trough 02/08 * c/w Rocephin 1gm ivpb daily (started 02/04) * CT R hand with IV contrast (02/04/17) - prominent soft tissue swelling seen within the dorsal soft tissues at the level 3rd, 4th, and 5th metacarpal heads. Prominent enhancing soft tissue collection. Other incidental findings (please see full report). Prominent partially enhancing soft tissue collection 2.0 X2.0 X2.1 cm extending from the subcutaneous soft tissues to the dorsal cortex of the head of 4th MCP extending to MCP joint space, involve 4th extensor tendon sheath (Focal abscess and/or phlegmon). No gross osseous destruction to suggest for acute osteomyelitis. Prominent degenerative changes at the level of wrist and carpometacarpal basis with joint space narrowing, subchondral sclerosis, osteophytosis, and subchondral cyst formation. Chronic deformity of the head 5ht metacarpal bone. Bone island at the head 3rd metacarpala bone. Prominent osteophytosis at the base of 2nd metacarpal carpal bone. Subchondral cyst formation with degenerative changes at the 1st MCP joint space. (Further details per report) * Blood cultures (02/03/17) - negative for 24 hours X2 * Hand right (02/03/17): MRSA * Finger (02/04/17): Staph Aureus * Percocet 5/325mg 1 tab po q4h prn pain mild * Florastor 250mg PO BID 2) Hypertension * Normotensive * Lisinopril 10mg PO daily * Monitor vitals and adjust accordingly 3) Impaired Glucose tolerance * HbA1c - 5.7 * Advocate for diet and lifestyle modifications 4) Elevated triglycerides and low HDL * Trig - 202-->advocate for diet and lifestyle modifications * recommended OTC fish oil and exercise to build up HDL 5) PPX * Protonix 40mg ivp daily * Lovenox 40mg SC daily * SCDs Discharge Plan: will discuss with ID regarding antibiotics recommendation. <Roel Christopher - Last Filed: 03/03/17 15:10> Objective - Vital Signs/Intake and Output Vital Signs (last 24 hours): Temp Pulse Resp BP Pulse Ox 98.1 F 78 20 138/76 95 06/22/17 15:22 02/12/17 15:22 02/12/17 15:22 02/12/17 15:22 02/12/17 15:22 - Labs Labs: 02/12/17 07:07 02/12/17 07:07 PT 12.2 SECONDS (9.7-12.2) 02/04/17 07:41 INR 1.1 02/04/17 07:41 APTT 25 SECONDS (21-34) 02/04/17 07:41 Attending/Attestation - Attestation I have personally seen and examined this patient.: Yes I have fully participated in the care of the patient.: Yes I have reviewed all pertinent clinical information, including history, physical exam and plan: Yes Notes (Text): Patient Seen and examined with the resident. Agree with the resident's evaluation, assessment and plan. 1) Hand Wound 2) Hypertension 3) Impaired Glucose tolerance 4) Elevated triglycerides and low HDL
[2017-02-09] MEDS: oxyCODONE 10 mg ER Tab (oxyCONTIN) PO SCH (21:37)
[2017-02-10] MEDS: Oxycodone/Acetaminophen 5/325 mg Tab PO PRN ×2 (03:38→21:22)
--- NOTE | 2017-02-10 06:10 | CP.PCM.PN ---
<MccordsvilleNaya jacquesbenjamín E - Last Filed: 02/10/17 21:46> Subjective - Date & Time of Evaluation Date of Evaluation: 02/10/17 Time of Evaluation: 07:15 - Subjective Subjective: Medicine Note (PGY1) : Dr. Mobley's service Patient was seen and examined at bedside. Patient states that he is doing very well with no acute event overnight. Patient states that he is changing his right hand wound dressing very 4 hours and taking proper precaution in order to prevent future infection. Patient is mobilizing his right hand very well with minimal discomfort. Patient denies fever, chills, chest pain, dyspnea, nausea, vomiting, abd pain, urinary symptoms. Objective - Vital Signs/Intake and Output Vital Signs (last 24 hours): Temp Pulse Resp BP Pulse Ox 98 F 72 20 157/88 H 96 02/09/17 23:53 02/09/17 23:53 02/09/17 23:53 02/09/17 23:53 02/09/17 23:53 Intake and Output: 02/09/17 02/10/17 18:59 06:59 Intake Total 120 100 Balance 120 100 - Medications Medications: Current Medications Aspirin (Aspirin) 325 mg PO DAILY [facility] Last Admin: 02/09/17 12:07 Dose: 325 mg Enoxaparin Sodium (Lovenox) 40 mg SC DAILY [facility] Last Admin: 02/09/17 12:07 Dose: 40 mg Escitalopram Oxalate (Lexapro) 10 mg PO DAILY [facility] Last Admin: 02/09/17 12:07 Dose: 10 mg Ceftriaxone Sodium 1 gm/ (Sodium Chloride) 100 mls @ 100 mls/hr IVPB DAILY [facility] Last Admin: 02/09/17 12:06 Dose: 100 mls/hr Vancomycin HCl 1,500 mg/ (Sodium Chloride) 500 mls @ 166.6 mls/hr IVPB Q12H [facility] Last Admin: 02/09/17 23:52 Dose: 166.6 mls/hr Lisinopril (Zestril) 10 mg PO DAILY [facility] Last Admin: 02/09/17 12:07 Dose: 10 mg Nitroglycerin (Nitrostat Sl Tab) 0.4 mg SL Q5M PRN PRN Reason: chest pain Ondansetron HCl (Zofran Inj) 4 mg IVP Q4 PRN PRN Reason: Nausea/Vomiting Oxycodone HCl (Oxycontin Extended Release Tab) 10 mg PO Q12 [facility] Stop: 02/12/17 22:01 Last Admin: 02/09/17 21:37 Dose: 10 mg Oxycodone/Acetaminophen (Percocet 5/325 Mg Tab) 1 tab PO Q6H PRN PRN Reason: Pain, severe (8-10) Stop: 02/12/17 14:47 Last Admin: 02/10/17 03:38 Dose: 1 tab Pantoprazole Sodium (Protonix Inj) 40 mg IVP DAILY [facility] Last Admin: 02/09/17 12:07 Dose: 40 mg Rosuvastatin Calcium (Crestor) 10 mg PO HS [facility] Last Admin: 02/09/17 21:37 Dose: 10 mg Saccharomyces Boulardii (Florastor) 250 mg PO BID [facility] Last Admin: 02/09/17 17:26 Dose: 250 mg Tramadol HCl (Ultram) 25 mg PO HS PRN PRN Reason: pain Last Admin: 02/08/17 21:21 Dose: 25 mg Trazodone HCl (Desyrel) 50 mg PO HS [facility] Last Admin: 02/09/17 21:37 Dose: 50 mg - Labs Labs: 02/09/17 07:19 02/09/17 07:19 PT 12.2 SECONDS (9.7-12.2) 02/04/17 07:41 INR 1.1 02/04/17 07:41 APTT 25 SECONDS (21-34) 02/04/17 07:41 - Constitutional Appears: Well, No Acute Distress - Head Exam Head Exam: NORMAL INSPECTION, NORMOCEPHALIC - Eye Exam Eye Exam: EOMI, Normal appearance - ENT Exam ENT Exam: Mucous Membranes Moist - Respiratory Exam Respiratory Exam: Clear to Ausculation Bilateral, NORMAL BREATHING PATTERN - Cardiovascular Exam Cardiovascular Exam: REGULAR RHYTHM, +S1, +S2 - GI/Abdominal Exam GI & Abdominal Exam: Soft (Non-distended, Non-tender), Normal Bowel Sounds - Extremities Exam Extremities Exam: Normal Capillary Refill, Normal Inspection - Neurological Exam Neurological Exam: Alert, Altered, Awake, Oriented x3 - Psychiatric Exam Psychiatric exam: Normal Affect, Normal Mood - Skin Skin Exam: Dry, Normal Color, Warm Assessment and Plan - Assessment and Plan (Free Text) Assessment: 1) Hand Wound * Surgery Dr. Hudson consulted-->help appreciated * Dr. Dunham, ID consulted - help appreciated -> PICC placed for intermediate frame tender abx for MRSA * Per surgery, recommended for applied Medihoney to wound, wrapped in kerlex; soaks until skin incision closes * Wound culture - + MRSA, Staph Aureus-->resistant to Clindamycin * Started on Vancomycin 1gm IVPB Q12 (started 02/05) - will obtain trough before 4th dose. Trough 7.5. Next trough 02/08 * c/w Rocephin 1gm ivpb daily (started 02/04) * CT R hand with IV contrast (02/04/17) - prominent soft tissue swelling seen within the dorsal soft tissues at the level 3rd, 4th, and 5th metacarpal heads. Prominent enhancing soft tissue collection. Other incidental findings (please see full report). Prominent partially enhancing soft tissue collection 2.0 X2.0 X2.1 cm extending from the subcutaneous soft tissues to the dorsal cortex of the head of 4th MCP extending to MCP joint space, involve 4th extensor tendon sheath (Focal abscess and/or phlegmon). No gross osseous destruction to suggest for acute osteomyelitis. Prominent degenerative changes at the level of wrist and carpometacarpal basis with joint space narrowing, subchondral sclerosis, osteophytosis, and subchondral cyst formation. Chronic deformity of the head 5ht metacarpal bone. Bone island at the head 3rd metacarpala bone. Prominent osteophytosis at the base of 2nd metacarpal carpal bone. Subchondral cyst formation with degenerative changes at the 1st MCP joint space. (Further details per report) * Blood cultures (02/03/17) - negative for 24 hours X2 * Hand right (02/03/17): MRSA * Finger (02/04/17): Staph Aureus * Percocet 5/325mg 1 tab po q4h prn and tramadol 25mg PO HS prn pain mild * Florastor 250mg PO BID 2) Hypertension * Lisinopril 10mg PO daily * Monitor vitals and adjust accordingly 3) Impaired Glucose tolerance * HbA1c - 5.7 * Advocate for diet and lifestyle modifications 4) Elevated triglycerides and low HDL * Trig - 202-->advocate for diet and lifestyle modifications * recommended OTC fish oil and exercise to build up HDL 5) Depression * Seen by Psychiatry (Dr. Indira Welsh) * Lexapro for depression and HILARY * Trazodone for insomnia * Support and psychoeducation * CBT * Refer to outpatient psychiatry 6) PPX * Protonix 40mg ivp daily * Lovenox 40mg SC daily * SCDs Discharge Plan: As per conversation with Dr. Dunham (ID), if approved for [facility], patient needs IV vancomycin Q12H for 6 weeks in total otherwise daily inpatient visit for IV cubicin daily. <Jocelin Mobley V - Last Filed: 02/10/17 22:40> Objective - Vital Signs/Intake and Output Vital Signs (last 24 hours): Temp Pulse Resp BP Pulse Ox 98.2 F 60 20 127/74 97 02/10/17 15:31 02/10/17 15:31 02/10/17 15:31 02/10/17 15:31 02/10/17 15:31 Intake and Output: 02/10/17 02/11/17 18:59 06:59 Intake Total 750 Balance 750 - Medications Medications: Current Medications Aspirin (Aspirin) 325 mg PO DAILY [facility] Last Admin: 02/10/17 10:24 Dose: 325 mg Enoxaparin Sodium (Lovenox) 40 mg SC DAILY [facility] Last Admin: 02/10/17 10:25 Dose: 40 mg Escitalopram Oxalate (Lexapro) 10 mg PO DAILY [facility] Last Admin: 02/10/17 10:25 Dose: 10 mg Vancomycin HCl 1,500 mg/ (Sodium Chloride) 500 mls @ 166.6 mls/hr IVPB Q12H [facility] Last Admin: 02/10/17 13:37 Dose: 166.6 mls/hr Lisinopril (Zestril) 10 mg PO DAILY [facility] Last Admin: 02/10/17 10:26 Dose: 10 mg Nitroglycerin (Nitrostat Sl Tab) 0.4 mg SL Q5M PRN PRN Reason: chest pain Ondansetron HCl (Zofran Inj) 4 mg IVP Q4 PRN PRN Reason: Nausea/Vomiting Oxycodone HCl (Oxycontin Extended Release Tab) 10 mg PO Q12 [facility] Stop: 02/12/17 22:01 Last Admin: 02/10/17 21:23 Dose: 10 mg Oxycodone/Acetaminophen (Percocet 5/325 Mg Tab) 1 tab PO Q6H PRN PRN Reason: Pain, severe (8-10) Stop: 02/12/17 14:47 Last Admin: 02/10/17 21:22 Dose: 1 tab Pantoprazole Sodium (Protonix Inj) 40 mg IVP DAILY [facility] Last Admin: 02/10/17 10:24 Dose: 40 mg Rosuvastatin Calcium (Crestor) 10 mg PO HS [facility] Last Admin: 02/10/17 21:23 Dose: 10 mg Saccharomyces Boulardii (Florastor) 250 mg PO BID [facility] Last Admin: 02/10/17 17:16 Dose: 250 mg Tramadol HCl (Ultram) 25 mg PO HS PRN PRN Reason: pain Last Admin: 02/08/17 21:21 Dose: 25 mg Trazodone HCl (Desyrel) 50 mg PO HS [facility] Last Admin: 02/10/17 21:23 Dose: 50 mg - Labs Labs: 02/10/17 07:16 02/10/17 07:16 PT 12.2 SECONDS (9.7-12.2) 02/04/17 07:41 INR 1.1 02/04/17 07:41 APTT 25 SECONDS (21-34) 02/04/17 07:41 Attending/Attestation - Attestation I have personally seen and examined this patient.: Yes I have fully participated in the care of the patient.: Yes I have reviewed all pertinent clinical information, including history, physical exam and plan: Yes Notes (Text): Patient seen, examined, and case discussed with day-time resident. Patient denies acute complaints. Patient seen in during rounds, engaging in hand precautions for his right hand. Discussed with Infectious disease, ID is recommending for Vancomycin 1gram IV Q 12hours or for Daptomycin IV given patient has MRSA infection, will need to clarify length of antibiotics. Discussed with case management, who will coordinate with social work see what the patient is eligible for since he will need long-term antibiotics but is presently homeless. Patient to follow-up with surgery when ready for discharge Assessment/Plan 1) Septic Joint * Surgery Dr. Hudson consulted-->help appreciated * MAURICIO Rizo consulted - help appreciated * Contact isolation * Wound culture - + MRSA, Staph Aureus-->resistant to Clindamycin * Started on Vancomycin 1500mg IVPB Q12 (started 02/10/17) adjusted by infectious disease * CT R hand with IV contrast (02/04/17) - prominent soft tissue swelling seen within the dorsal soft tissues at the level 3rd, 4th, and 5th metacarpal heads. Prominent enhancing soft tissue collection Other incidental findings (please see full report). Prominent partially enhancing soft tissue collection 2.0 X2.0 X2.1 cm extending from the subcutaneous soft tissues to the dorsal cortex of the head of 4th MCP extending to MCP joint space, involve 4th extensor tendon sheath (Focal abscess and/or phlegmon). No gross osseous destruction to suggest for acute osteomyelitis. Prominent degenerative changes at the level of wrist and carpometacarpal basis with joint space narrowing, subchondral sclerosis, osteophytosis, and subchondral cyst formation. Chronic deformity of the head 5ht metacarpal bone. Bone island at the head 3rd metacarpala bone. Prominent osteophytosis at the base of 2nd metacarpal carpal bone. Subchondral cyst formation with degenerative changes at the 1st MCP joint space. (Further details per report) * Blood cultures (02/03/17) - negative X 5 days X2 * Hand right (02/03/17): MRSA * Finger (02/04/17): MRSA * Percocet 5/325mg 1 tab po q6h prn pain * Oxycodone ER 20mg PO Q12H * Tramadol 25mg PO qHS PRN * Florastor 250mg PO BID 2) Hypertension * Lisinopril 10mg PO daily * Monitor vitals and adjust accordingly 3) Impaired Glucose tolerance * HbA1c - 5.7 * Advocate for diet and lifestyle modifications 4) Elevated triglycerides and low HDL * Trig - 202-->advocate for diet and lifestyle modifications * recommended OTC fish oil and exercise to build up HDL 5) Anxiety/Depression * Psychiatry (Dr. Welsh) on board--> help appreciated * Trazadone 50mg PO qHS * Lexapro 10mg PO daily 6) PPX * Protonix 40mg ivp daily * Lovenox 40mg SC daily * SCDs * Florastor 250mg po bid
[2017-02-10 07:27] LABS: BASO % 0.6 % (0.0-2.0); EOS # 0.2 K/uL (0.0-0.7); EOS % 3.2 % (0.0-4.0); HEMATOCRIT 42.4 % (35.0-51.0); LYMPH # 2.4 K/uL (1.0-4.3); LYMPH % 35.7 % (20.0-40.0); MEAN CELL VOLUME 89.2 fL (80.0-94.0); MEAN CORPUSCULAR HEMOGLOBIN 29.7 pg (27.0-31.0); MEAN CORPUSCULAR HGB CONC 33.3 g/dL (33.0-37.0); MEAN PLATELET VOLUME 8.8 fL (7.2-11.7); MONO # 0.4 K/uL (0.0-0.8); MONO % 6.4 % (0.0-10.0); NRBC % 0.1 % (0.0-2.0); WHITE BLOOD COUNT 6.8 K/uL (4.8-10.8)
--- NOTE | 2017-02-10 08:14 | CP.PCM.PN ---
Subjective - Date & Time of Evaluation Date of Evaluation: 02/10/17 Time of Evaluation: 08:12 - Subjective Subjective: Surgery: Dr. Gallo Pt seen and examined. Resting comfortably in bed. States that hand feels better. Has been soaking hand and changing dressings regularly. Objective - Vital Signs/Intake and Output Vital Signs (last 24 hours): Temp Pulse Resp BP Pulse Ox 98 F 72 20 157/88 H 96 02/09/17 23:53 02/09/17 23:53 02/09/17 23:53 02/09/17 23:53 02/09/17 23:53 Intake and Output: 02/10/17 02/10/17 06:59 18:59 Intake Total 700 Balance 700 - Medications Medications: Current Medications Aspirin (Aspirin) 325 mg PO DAILY [facility] Last Admin: 02/09/17 12:07 Dose: 325 mg Enoxaparin Sodium (Lovenox) 40 mg SC DAILY [facility] Last Admin: 02/09/17 12:07 Dose: 40 mg Escitalopram Oxalate (Lexapro) 10 mg PO DAILY [facility] Last Admin: 02/09/17 12:07 Dose: 10 mg Ceftriaxone Sodium 1 gm/ (Sodium Chloride) 100 mls @ 100 mls/hr IVPB DAILY [facility] Last Admin: 02/09/17 12:06 Dose: 100 mls/hr Vancomycin HCl 1,500 mg/ (Sodium Chloride) 500 mls @ 166.6 mls/hr IVPB Q12H [facility] Last Admin: 02/09/17 23:52 Dose: 166.6 mls/hr Lisinopril (Zestril) 10 mg PO DAILY [facility] Last Admin: 02/09/17 12:07 Dose: 10 mg Nitroglycerin (Nitrostat Sl Tab) 0.4 mg SL Q5M PRN PRN Reason: chest pain Ondansetron HCl (Zofran Inj) 4 mg IVP Q4 PRN PRN Reason: Nausea/Vomiting Oxycodone HCl (Oxycontin Extended Release Tab) 10 mg PO Q12 [facility] Stop: 02/12/17 22:01 Last Admin: 02/09/17 21:37 Dose: 10 mg Oxycodone/Acetaminophen (Percocet 5/325 Mg Tab) 1 tab PO Q6H PRN PRN Reason: Pain, severe (8-10) Stop: 02/12/17 14:47 Last Admin: 02/10/17 03:38 Dose: 1 tab Pantoprazole Sodium (Protonix Inj) 40 mg IVP DAILY [facility] Last Admin: 02/09/17 12:07 Dose: 40 mg Rosuvastatin Calcium (Crestor) 10 mg PO HS [facility] Last Admin: 02/09/17 21:37 Dose: 10 mg Saccharomyces Boulardii (Florastor) 250 mg PO BID [facility] Last Admin: 02/09/17 17:26 Dose: 250 mg Tramadol HCl (Ultram) 25 mg PO HS PRN PRN Reason: pain Last Admin: 02/08/17 21:21 Dose: 25 mg Trazodone HCl (Desyrel) 50 mg PO HS [facility] Last Admin: 02/09/17 21:37 Dose: 50 mg - Labs Labs: 02/10/17 07:16 02/09/17 07:19 PT 12.2 SECONDS (9.7-12.2) 02/04/17 07:41 INR 1.1 02/04/17 07:41 APTT 25 SECONDS (21-34) 02/04/17 07:41 - Constitutional Appears: Non-toxic, No Acute Distress - Head Exam Head Exam: ATRAUMATIC, NORMOCEPHALIC - Eye Exam Eye Exam: EOMI - ENT Exam ENT Exam: Mucous Membranes Moist - Neck Exam Neck Exam: Full ROM - Respiratory Exam Respiratory Exam: NORMAL BREATHING PATTERN. absent: Accessory Muscle Use, Respiratory Distress - Extremities Exam Additional comments: R hand: decreased swelling, improved ROM in fingers, no erythema/pus - Neurological Exam Neurological Exam: Alert, Awake, Oriented x3 Assessment and Plan - Assessment and Plan (Free Text) Assessment: 52M w. septic R MCPJ, s/p I&D, POD#6 -soak hand in betadine/saline 10-15 minutes every 4 hours -Redress hand sayra rodriguez over ID site -abx per ID -keep hand elevated -to follow up w. Dr. Gallo or Dr. Hudson upon D/C -d/w attending Bridger PGY2
[2017-02-10 08:51] LABS: CHLORIDE 106 mmol/L (98-107); SODIUM 140 mmol/L (132-148)
[2017-02-10 08:53] LABS: BILIRUBIN,TOTAL 0.7 mg/dL (0.2-1.3); GFR AFRICAN-AMERICAN > 60
[2017-02-10 08:54] LABS: ALKALINE PHOSPHATASE 73 U/L (38-126); ALT/SGPT 39 U/L (21-72); AST/SGOT 36 U/L (17-59); BLOOD UREA NITROGEN 17 mg/dL (9-20); CARBON DIOXIDE 22 mmol/L (22-30); GLUCOSE,RANDOM 125 mg/dL (75-110)
[2017-02-10 08:55] LABS: CALCIUM 9.2 mg/dl (8.6-10.4)
[2017-02-10] MEDS: Enoxaparin 40 mg Syringe SC SCH (10:25)
[2017-02-10] MEDS: Saccharomyces Boulardi 250 mg Cap PO SCH ×2 (10:25→17:16)
[2017-02-10] MEDS: oxyCODONE 10 mg ER Tab (oxyCONTIN) PO SCH ×2 (10:26→21:23)
--- NOTE | 2017-02-10 11:07 | CP.PCM.PN ---
Subjective - Date & Time of Evaluation Date of Evaluation: 02/10/17 Time of Evaluation: 11:00 - Subjective Subjective: dictated Objective - Vital Signs/Intake and Output Vital Signs (last 24 hours): Temp Pulse Resp BP Pulse Ox 97.8 F 68 18 146/90 96 02/10/17 07:05 02/10/17 07:05 02/10/17 07:05 02/10/17 07:05 02/10/17 07:05 Intake and Output: 02/10/17 02/10/17 06:59 18:59 Intake Total 700 Balance 700 - Medications Medications: Current Medications Aspirin (Aspirin) 325 mg PO DAILY [facility] Last Admin: 02/10/17 10:24 Dose: 325 mg Enoxaparin Sodium (Lovenox) 40 mg SC DAILY [facility] Last Admin: 02/10/17 10:25 Dose: 40 mg Escitalopram Oxalate (Lexapro) 10 mg PO DAILY [facility] Last Admin: 02/10/17 10:25 Dose: 10 mg Ceftriaxone Sodium 1 gm/ (Sodium Chloride) 100 mls @ 100 mls/hr IVPB DAILY [facility] Last Admin: 02/10/17 10:25 Dose: 100 mls/hr Vancomycin HCl 1,500 mg/ (Sodium Chloride) 500 mls @ 166.6 mls/hr IVPB Q12H [facility] Last Admin: 02/09/17 23:52 Dose: 166.6 mls/hr Lisinopril (Zestril) 10 mg PO DAILY [facility] Last Admin: 02/10/17 10:26 Dose: 10 mg Nitroglycerin (Nitrostat Sl Tab) 0.4 mg SL Q5M PRN PRN Reason: chest pain Ondansetron HCl (Zofran Inj) 4 mg IVP Q4 PRN PRN Reason: Nausea/Vomiting Oxycodone HCl (Oxycontin Extended Release Tab) 10 mg PO Q12 [facility] Stop: 02/12/17 22:01 Last Admin: 02/10/17 10:26 Dose: 10 mg Oxycodone/Acetaminophen (Percocet 5/325 Mg Tab) 1 tab PO Q6H PRN PRN Reason: Pain, severe (8-10) Stop: 02/12/17 14:47 Last Admin: 02/10/17 03:38 Dose: 1 tab Pantoprazole Sodium (Protonix Inj) 40 mg IVP DAILY [facility] Last Admin: 02/10/17 10:24 Dose: 40 mg Rosuvastatin Calcium (Crestor) 10 mg PO HS [facility] Last Admin: 02/09/17 21:37 Dose: 10 mg Saccharomyces Boulardii (Florastor) 250 mg PO BID [facility] Last Admin: 02/10/17 10:25 Dose: 250 mg Tramadol HCl (Ultram) 25 mg PO HS PRN PRN Reason: pain Last Admin: 02/08/17 21:21 Dose: 25 mg Trazodone HCl (Desyrel) 50 mg PO HS [facility] Last Admin: 02/09/17 21:37 Dose: 50 mg - Labs Labs: 02/10/17 07:16 02/10/17 07:16 PT 12.2 SECONDS (9.7-12.2) 02/04/17 07:41 INR 1.1 02/04/17 07:41 APTT 25 SECONDS (21-34) 02/04/17 07:41
--- NOTE | 2017-02-10 11:36 | PN ---
DATE: 02/10/2017 SUBJECTIVE: He just broke up with his girlfriend and he says he will be living in a basement which m ay have insects crawling. I do not want him to be there and he says he cannot do IV antibiotics ther e, and he is right now on vancomycin q. 12 hours, will probably need it q. 12 hours, as his levels blancas ve been low. So will suggest that either he comes to the hospital and get Cubicin daily or he goes i n a subacute rehab. Will discuss with the primary as this is an issue. He does have a PICC line now and remains stable and is being followed by the surgeon. PHYSICAL EXAMINATION VITAL SIGNS: T-max is 97.8, pulse is 68, blood pressure 146/90, respirations are 18. HEENT: Head is atraumatic, normocephalic. NECK: Supple. LUNGS: Clear. No crackles or rales present. HEART: S1, S2 regular. ABDOMEN: Soft, nontender, no guarding, no rigidity present. EXTREMITIES: Right hand has some swelling at the metacarpal joint on the 4th joint, otherwise with s ome redness and is getting better. We will follow and we are going to repeat the vancomycin peak and trough on the third dose as the van comycin trough was low. He has MRSA in the wound. I think we can discontinue the Rocephin and just continue with the vancomycin for now. IMPRESSION: He had trauma. Nhan Dunham MD cc: [id number] TT: 02/10/2017 11:35:34 Confirmation # [id number] Dictation # [id number]
--- NOTE | 2017-02-10 21:35 | CARD ---
APPROVED REPORT EKG Measurement Heart [id number] <Conclusion> Normal sinus rhythm Normal ECG
[2017-02-11] MEDS: Oxycodone/Acetaminophen 5/325 mg Tab PO PRN ×2 (04:03→21:40)
--- NOTE | 2017-02-11 06:10 | CP.PCM.PN ---
<Clayton Ceballos Andrey - Last Filed: 02/11/17 21:30> Subjective - Date & Time of Evaluation Date of Evaluation: 02/11/17 Time of Evaluation: 07:05 - Subjective Subjective: Medicine Note (PGY1)- Todd Mobley's Service Patient was seen and examined at bedside. Patient was resting comfortably and had no acute event overnight. Patient states that he is doing well and has no complaints. Patient states that he is changing his dressing on his own every 4 hours and make sure that the site of the wound is dry, clean and intact. Patient denies fever, nausea, chills, chest pain, sob, diarrhea, urinary symptoms. Objective - Vital Signs/Intake and Output Vital Signs (last 24 hours): Temp Pulse Resp BP Pulse Ox 97.8 F 56 L 18 132/87 95 02/10/17 23:32 02/10/17 23:32 02/10/17 23:32 02/10/17 23:32 02/10/17 23:32 Intake and Output: 02/10/17 02/11/17 18:59 06:59 Intake Total 750 Balance 750 - Medications Medications: Current Medications Aspirin (Aspirin) 325 mg PO DAILY [facility] Last Admin: 02/10/17 10:24 Dose: 325 mg Enoxaparin Sodium (Lovenox) 40 mg SC DAILY [facility] Last Admin: 02/10/17 10:25 Dose: 40 mg Escitalopram Oxalate (Lexapro) 10 mg PO DAILY [facility] Last Admin: 02/10/17 10:25 Dose: 10 mg Vancomycin HCl 1,500 mg/ (Sodium Chloride) 500 mls @ 166.6 mls/hr IVPB Q12H [facility] Last Admin: 02/11/17 01:37 Dose: 166.6 mls/hr Lisinopril (Zestril) 10 mg PO DAILY [facility] Last Admin: 02/10/17 10:26 Dose: 10 mg Nitroglycerin (Nitrostat Sl Tab) 0.4 mg SL Q5M PRN PRN Reason: chest pain Ondansetron HCl (Zofran Inj) 4 mg IVP Q4 PRN PRN Reason: Nausea/Vomiting Oxycodone HCl (Oxycontin Extended Release Tab) 10 mg PO Q12 [facility] Stop: 02/12/17 22:01 Last Admin: 02/10/17 21:23 Dose: 10 mg Oxycodone/Acetaminophen (Percocet 5/325 Mg Tab) 1 tab PO Q6H PRN PRN Reason: Pain, severe (8-10) Stop: 02/12/17 14:47 Last Admin: 02/11/17 04:03 Dose: 1 tab Pantoprazole Sodium (Protonix Inj) 40 mg IVP DAILY [facility] Last Admin: 02/10/17 10:24 Dose: 40 mg Rosuvastatin Calcium (Crestor) 10 mg PO HS [facility] Last Admin: 02/10/17 21:23 Dose: 10 mg Saccharomyces Boulardii (Florastor) 250 mg PO BID [facility] Last Admin: 02/10/17 17:16 Dose: 250 mg Tramadol HCl (Ultram) 25 mg PO HS PRN PRN Reason: pain Last Admin: 02/08/17 21:21 Dose: 25 mg Trazodone HCl (Desyrel) 50 mg PO HS [facility] Last Admin: 02/10/17 21:23 Dose: 50 mg - Labs Labs: 02/10/17 07:16 02/10/17 07:16 PT 12.2 SECONDS (9.7-12.2) 02/04/17 07:41 INR 1.1 02/04/17 07:41 APTT 25 SECONDS (21-34) 02/04/17 07:41 Assessment and Plan - Assessment and Plan (Free Text) Assessment: 1) Hand Wound * Surgery Dr. Hudson consulted-->help appreciated * MAURICIO Rizo consulted - help appreciated -> PICC placed for care home abx for MRSA * Per surgery, recommended for applied Medihoney to wound, wrapped in kerlex; soaks until skin incision closes and keep hand elevated * Wound culture - + MRSA, Staph Aureus-->resistant to Clindamycin * Started on Vancomycin 1gm IVPB Q12 (started 02/05) - will obtain trough before 4th dose. Trough 7.5. Next trough 02/08 * c/w Rocephin 1gm ivpb daily (started 02/04) * CT R hand with IV contrast (02/04/17) - prominent soft tissue swelling seen within the dorsal soft tissues at the level 3rd, 4th, and 5th metacarpal heads. Prominent enhancing soft tissue collection. Other incidental findings (please see full report). Prominent partially enhancing soft tissue collection 2.0 X2.0 X2.1 cm extending from the subcutaneous soft tissues to the dorsal cortex of the head of 4th MCP extending to MCP joint space, involve 4th extensor tendon sheath (Focal abscess and/or phlegmon). No gross osseous destruction to suggest for acute osteomyelitis. Prominent degenerative changes at the level of wrist and carpometacarpal basis with joint space narrowing, subchondral sclerosis, osteophytosis, and subchondral cyst formation. Chronic deformity of the head 5ht metacarpal bone. Bone island at the head 3rd metacarpala bone. Prominent osteophytosis at the base of 2nd metacarpal carpal bone. Subchondral cyst formation with degenerative changes at the 1st MCP joint space. (Further details per report) * Blood cultures (02/03/17) - negative for 24 hours X2 * Hand right (02/03/17): MRSA * Finger (02/04/17): Staph Aureus * Percocet 5/325mg 1 tab po q4h prn pain mild * Florastor 250mg PO BID * As per Dr. Dunham, started on Daptomycin 800mg IV Q24H (02/11/17) and will complete 5 weeks course of this dose at an outpatient infusion center 2) Hypertension * Lisinopril 10mg PO daily * Monitor vitals and adjust accordingly 3) Impaired Glucose tolerance * HbA1c - 5.7 * Advocate for diet and lifestyle modifications 4) Elevated triglycerides and low HDL * Trig - 202-->advocate for diet and lifestyle modifications * recommended OTC fish oil and exercise to build up HDL 5) Depression * Seen by Psychiatry (Dr. Indira Welsh) -> help appreciated * Lexapro 10mg PO daily for depression and HILARY * Trazodone 50mg PO HS for insomnia * Support and psychoeducation * CBT * Refer to outpatient psychiatry 6) PPX * Protonix 40mg ivp daily * Lovenox 40mg SC daily * SCDs <Jocelin Mobley V - Last Filed: 02/12/17 09:46> Objective - Vital Signs/Intake and Output Vital Signs (last 24 hours): Temp Pulse Resp BP Pulse Ox 97.4 F L 61 20 130/74 98 02/12/17 08:18 02/12/17 08:18 02/12/17 08:18 02/12/17 08:18 02/12/17 08:18 Intake and Output: 06/22/17 06/22/17 06:59 18:59 Intake Total 240 Balance 240 - Medications Medications: Current Medications Aspirin (Aspirin) 325 mg PO DAILY [facility] Last Admin: 02/11/17 09:16 Dose: 325 mg Enoxaparin Sodium (Lovenox) 40 mg SC DAILY [facility] Last Admin: 02/11/17 09:16 Dose: 40 mg Escitalopram Oxalate (Lexapro) 10 mg PO DAILY [facility] Last Admin: 02/11/17 09:16 Dose: 10 mg Daptomycin 800 mg/ Sodium (Chloride) 100 mls @ 100 mls/hr IV Q24H [facility] Stop: 02/16/17 17:01 Last Admin: 02/11/17 18:24 Dose: 100 mls/hr Lisinopril (Zestril) 10 mg PO DAILY [facility] Last Admin: 02/11/17 09:16 Dose: 10 mg Ondansetron HCl (Zofran Inj) 4 mg IVP Q4 PRN PRN Reason: Nausea/Vomiting Oxycodone HCl (Oxycontin Extended Release Tab) 10 mg PO Q12 [facility] Stop: 02/12/17 22:01 Last Admin: 02/11/17 21:38 Dose: 10 mg Oxycodone/Acetaminophen (Percocet 5/325 Mg Tab) 1 tab PO Q6H PRN PRN Reason: Pain, severe (8-10) Stop: 02/12/17 14:47 Last Admin: 02/12/17 06:52 Dose: 1 tab Pantoprazole Sodium (Protonix Inj) 40 mg IVP DAILY [facility] Last Admin: 02/11/17 09:16 Dose: 40 mg Rosuvastatin Calcium (Crestor) 10 mg PO HS [facility] Last Admin: 02/11/17 21:38 Dose: 10 mg Saccharomyces Boulardii (Florastor) 250 mg PO BID [facility] Last Admin: 02/11/17 17:26 Dose: 250 mg Tramadol HCl (Ultram) 25 mg PO HS PRN PRN Reason: pain Last Admin: 02/08/17 21:21 Dose: 25 mg Trazodone HCl (Desyrel) 50 mg PO HS [facility] Last Admin: 02/11/17 21:38 Dose: 50 mg - Labs Labs: 02/12/17 07:07 02/12/17 07:07 PT 12.2 SECONDS (9.7-12.2) 02/04/17 07:41 INR 1.1 02/04/17 07:41 APTT 25 SECONDS (21-34) 02/04/17 07:41 Attending/Attestation - Attestation I have personally seen and examined this patient.: Yes I have fully participated in the care of the patient.: Yes I have reviewed all pertinent clinical information, including history, physical exam and plan: Yes Notes (Text): This is a late computer entry for 02/11/17. Patient seen, examined, and case discussed with day-time resident. Patient denies acute complaints. Patient seen in during rounds, engaging in hand precautions for his right hand. Discussed with Infectious disease, ID is recommending for Daptomycin IV given patient has MRSA infection; will follow-up with case management and social work regarding coordination for IV antibiotics. Discussed with patient for outpatient follow-up, provided number of the [facility] ([phone]) to make outpatient appointment Discussed with case management, who will coordinate with social work see what the patient is eligible for since he will need long-term antibiotics but is presently homeless. Patient to follow-up with surgery when ready for discharge following setup with case management regarding IV antibiotics. Assessment/Plan 1) Septic Joint * Surgery Dr. Hudson consulted-->help appreciated * Dr. Dunham, MUARICIO consulted - help appreciated * Contact isolation * Wound culture - + MRSA, Staph Aureus-->resistant to Clindamycin * Started on Vancomycin 1500mg IVPB Q12 (started 02/10/17) adjusted by infectious disease * CT R hand with IV contrast (02/04/17) - prominent soft tissue swelling seen within the dorsal soft tissues at the level 3rd, 4th, and 5th metacarpal heads. Prominent enhancing soft tissue collection Other incidental findings (please see full report). Prominent partially enhancing soft tissue collection 2.0 X2.0 X2.1 cm extending from the subcutaneous soft tissues to the dorsal cortex of the head of 4th MCP extending to MCP joint space, involve 4th extensor tendon sheath (Focal abscess and/or phlegmon). No gross osseous destruction to suggest for acute osteomyelitis. Prominent degenerative changes at the level of wrist and carpometacarpal basis with joint space narrowing, subchondral sclerosis, osteophytosis, and subchondral cyst formation. Chronic deformity of the head 5ht metacarpal bone. Bone island at the head 3rd metacarpala bone. Prominent osteophytosis at the base of 2nd metacarpal carpal bone. Subchondral cyst formation with degenerative changes at the 1st MCP joint space. (Further details per report) * Blood cultures (02/03/17) - negative X 5 days X2 * Hand right (02/03/17): MRSA * Finger (02/04/17): MRSA * Percocet 5/325mg 1 tab po q6h prn pain * Oxycodone ER 20mg PO Q12H * Tramadol 25mg PO qHS PRN * Florastor 250mg PO BID * As per Dr. Dunham, started on Daptomycin 800mg IV Q24H (02/11/17) and will complete 5 weeks course of this dose at an outpatient infusion center 2) Hypertension * Lisinopril 10mg PO daily * Monitor vitals and adjust accordingly 3) Impaired Glucose tolerance * HbA1c - 5.7 * Advocate for diet and lifestyle modifications 4) Elevated triglycerides and low HDL * Trig - 202-->advocate for diet and lifestyle modifications * recommended OTC fish oil and exercise to build up HDL 5) Anxiety/Depression * Psychiatry (Dr. Welsh) on board--> help appreciated * Trazadone 50mg PO qHS * Lexapro 10mg PO daily 6) PPX * Protonix 40mg ivp daily * Lovenox 40mg SC daily * SCDs * Florastor 250mg po bid
[2017-02-11 07:55] LABS: BASO # 0.1 K/uL (0.0-0.2); BASO % 0.8 % (0.0-2.0); EOS # 0.3 K/uL (0.0-0.7); EOS % 3.6 % (0.0-4.0); HEMATOCRIT 40.7 % (35.0-51.0); LYMPH # 2.6 K/uL (1.0-4.3); LYMPH % 36.3 % (20.0-40.0); MEAN CELL VOLUME 88.5 fL (80.0-94.0); MEAN CORPUSCULAR HEMOGLOBIN 29.6 pg (27.0-31.0); MEAN CORPUSCULAR HGB CONC 33.5 g/dL (33.0-37.0); MEAN PLATELET VOLUME 8.8 fL (7.2-11.7); MONO # 0.7 K/uL (0.0-0.8); NRBC % 0.1 % (0.0-2.0); RED CELL DISTRIBUTION WIDTH 12.9 % (11.5-14.5); WHITE BLOOD COUNT 7.1 K/uL (4.8-10.8)
[2017-02-11 08:11] VITALS: RESP 20
[2017-02-11 08:19] LABS: CHLORIDE 105 mmol/L (98-107)
[2017-02-11 08:20] LABS: SODIUM 140 mmol/L (132-148)
[2017-02-11 08:23] LABS: ALKALINE PHOSPHATASE 65 U/L (38-126); ALT/SGPT 38 U/L (21-72); AST/SGOT 29 U/L (17-59); BILIRUBIN,TOTAL 0.6 mg/dL (0.2-1.3); BLOOD UREA NITROGEN 14 mg/dL (9-20); CARBON DIOXIDE 23 mmol/L (22-30); GFR AFRICAN-AMERICAN > 60; GLUCOSE,RANDOM 81 mg/dL (75-110); TOTAL PROTEIN 7.8 g/dL (6.3-8.3)
[2017-02-11 08:24] LABS: CALCIUM 8.9 mg/dl (8.6-10.4); MAGNESIUM 2.1 mg/dL (1.6-2.3)
[2017-02-11] MEDS: Saccharomyces Boulardi 250 mg Cap PO SCH ×2 (09:16→17:26)
[2017-02-11] MEDS: oxyCODONE 10 mg ER Tab (oxyCONTIN) PO SCH ×2 (09:16→21:38)
[2017-02-11] MEDS: Enoxaparin 40 mg Syringe SC SCH (09:16)
--- NOTE | 2017-02-11 10:49 | CP.PCM.PN ---
Subjective - Date & Time of Evaluation Date of Evaluation: 02/11/17 Time of Evaluation: 06:55 - Subjective Subjective: SURGERY NOTE FOR DR. HODGE 52M seen and examined at bedside. Clinically same. Objective - Vital Signs/Intake and Output Vital Signs (last 24 hours): Temp Pulse Resp BP Pulse Ox 97.6 F 66 20 98/60 L 97 02/11/17 08:10 02/11/17 08:10 02/11/17 08:10 02/11/17 08:10 02/11/17 08:10 Intake and Output: 02/11/17 02/11/17 06:59 18:59 Intake Total 740 Balance 740 - Medications Medications: Current Medications Aspirin (Aspirin) 325 mg PO DAILY [facility] Last Admin: 02/11/17 09:16 Dose: 325 mg Enoxaparin Sodium (Lovenox) 40 mg SC DAILY [facility] Last Admin: 02/10/17 10:25 Dose: 40 mg Escitalopram Oxalate (Lexapro) 10 mg PO DAILY [facility] Last Admin: 02/11/17 09:16 Dose: 10 mg Vancomycin HCl 1,500 mg/ (Sodium Chloride) 500 mls @ 166.6 mls/hr IVPB Q12H [facility] Last Admin: 02/11/17 01:37 Dose: 166.6 mls/hr Lisinopril (Zestril) 10 mg PO DAILY [facility] Last Admin: 02/11/17 09:16 Dose: 10 mg Nitroglycerin (Nitrostat Sl Tab) 0.4 mg SL Q5M PRN PRN Reason: chest pain Ondansetron HCl (Zofran Inj) 4 mg IVP Q4 PRN PRN Reason: Nausea/Vomiting Oxycodone HCl (Oxycontin Extended Release Tab) 10 mg PO Q12 [facility] Stop: 02/12/17 22:01 Last Admin: 02/11/17 09:16 Dose: 10 mg Oxycodone/Acetaminophen (Percocet 5/325 Mg Tab) 1 tab PO Q6H PRN PRN Reason: Pain, severe (8-10) Stop: 02/12/17 14:47 Last Admin: 02/11/17 04:03 Dose: 1 tab Pantoprazole Sodium (Protonix Inj) 40 mg IVP DAILY [facility] Last Admin: 02/11/17 09:16 Dose: 40 mg Rosuvastatin Calcium (Crestor) 10 mg PO HS [facility] Last Admin: 02/10/17 21:23 Dose: 10 mg Saccharomyces Boulardii (Florastor) 250 mg PO BID [facility] Last Admin: 02/11/17 09:16 Dose: 250 mg Tramadol HCl (Ultram) 25 mg PO HS PRN PRN Reason: pain Last Admin: 02/08/17 21:21 Dose: 25 mg Trazodone HCl (Desyrel) 50 mg PO HS [facility] Last Admin: 02/10/17 21:23 Dose: 50 mg - Labs Labs: 02/11/17 07:48 02/11/17 07:48 PT 12.2 SECONDS (9.7-12.2) 02/04/17 07:41 INR 1.1 02/04/17 07:41 APTT 25 SECONDS (21-34) 02/04/17 07:41 - Constitutional Appears: Non-toxic, No Acute Distress - Respiratory Exam Respiratory Exam: Clear to Ausculation Bilateral, NORMAL BREATHING PATTERN - Cardiovascular Exam Cardiovascular Exam: REGULAR RHYTHM, +S1, +S2 - Extremities Exam Additional comments: hand wrapped dressing. Patient has been changing it Q4 Assessment and Plan - Assessment and Plan (Free Text) Assessment: 52M w. septic R MCPJ, s/p I&D, POD#7 -soak hand in betadine/saline 10-15 minutes every 4 hours -Redress hand sayra rodriguez over ID site -abx per ID -keep hand elevated -pending placement Further recs discuss with Dr. Cleo Anderson, PGY1
--- NOTE | 2017-02-11 15:00 | CP.PCM.PN ---
Subjective - Date & Time of Evaluation Date of Evaluation: 02/11/17 Time of Evaluation: 03:00 - Subjective Subjective: dictated Objective - Vital Signs/Intake and Output Vital Signs (last 24 hours): Temp Pulse Resp BP Pulse Ox 97.6 F 66 20 98/60 L 97 02/11/17 08:10 02/11/17 08:10 02/11/17 08:10 02/11/17 08:10 02/11/17 08:10 Intake and Output: 02/11/17 02/11/17 06:59 18:59 Intake Total 740 Balance 740 - Medications Medications: Current Medications Aspirin (Aspirin) 325 mg PO DAILY [facility] Last Admin: 02/11/17 09:16 Dose: 325 mg Enoxaparin Sodium (Lovenox) 40 mg SC DAILY [facility] Last Admin: 02/10/17 10:25 Dose: 40 mg Escitalopram Oxalate (Lexapro) 10 mg PO DAILY [facility] Last Admin: 02/11/17 09:16 Dose: 10 mg Daptomycin 800 mg/ Sodium (Chloride) 100 mls @ 100 mls/hr IV Q24H [facility] Stop: 02/16/17 15:01 Lisinopril (Zestril) 10 mg PO DAILY [facility] Last Admin: 02/11/17 09:16 Dose: 10 mg Ondansetron HCl (Zofran Inj) 4 mg IVP Q4 PRN PRN Reason: Nausea/Vomiting Oxycodone HCl (Oxycontin Extended Release Tab) 10 mg PO Q12 [facility] Stop: 02/12/17 22:01 Last Admin: 02/11/17 09:16 Dose: 10 mg Oxycodone/Acetaminophen (Percocet 5/325 Mg Tab) 1 tab PO Q6H PRN PRN Reason: Pain, severe (8-10) Stop: 02/12/17 14:47 Last Admin: 02/11/17 04:03 Dose: 1 tab Pantoprazole Sodium (Protonix Inj) 40 mg IVP DAILY [facility] Last Admin: 02/11/17 09:16 Dose: 40 mg Rosuvastatin Calcium (Crestor) 10 mg PO HS [facility] Last Admin: 02/10/17 21:23 Dose: 10 mg Saccharomyces Boulardii (Florastor) 250 mg PO BID [facility] Last Admin: 02/11/17 09:16 Dose: 250 mg Tramadol HCl (Ultram) 25 mg PO HS PRN PRN Reason: pain Last Admin: 02/08/17 21:21 Dose: 25 mg Trazodone HCl (Desyrel) 50 mg PO HS [facility] Last Admin: 02/10/17 21:23 Dose: 50 mg - Labs Labs: 02/11/17 07:48 02/11/17 07:48 PT 12.2 SECONDS (9.7-12.2) 02/04/17 07:41 INR 1.1 02/04/17 07:41 APTT 25 SECONDS (21-34) 02/04/17 07:41
--- NOTE | 2017-02-11 15:40 | PN ---
DATE: 02/11/2017 SUBJECTIVE: The patient got a PICC and he was on vancomycin IV, but he is not approved for subacute care and he is planning to come to the hospital to get his antibiotic. He did have MRSA in the wound and the joint was washed by Dr. Gallo and Dr. Hudson. Right now he is afebrile. PHYSICAL EXAMINATION: VITAL SIGNS: T-max is 97.6, pulse 66, however, his blood pressure was 132/87. Right now they are re porting 98/60. Needs to be repeated. Respirations are 20. GENERAL: Head is atraumatic. He is awake, alert. He is a big kirstin. He weighs 298 pounds. HEENT: Unremarkable. NECK: Supple. LUNGS: Clear. No crackles or rales present. HEART: S1, S2 regular. ABDOMEN: Soft, nontender. EXTREMITIES: No edema, clubbing or cyanosis noted. Right hand is healing, the wound is closing and he is able to make a claw-shape and he is doing better. Left hand is unremarkable. PT and OT prescriptions are per surgery. At this time, I would send him on Cubicin. He would need 8 00 mg of Cubicin daily and can come to the infusion center here. Also to do CBC, CMP, CPK, ESR and C RP weekly for 5 weeks and needs to get PICC line care. I gave him my card to follow up in the office . IMPRESSION: He has infected wound with methicillin-resistant Staphylococcus aureus and joint involve ment on the fourth metatarsal and will need close followup. Nhan Dunham MD cc: [id number] TT: 02/11/2017 15:39:49 Confirmation # [id number] Dictation # [id number]
[2017-02-12] MEDS: Oxycodone/Acetaminophen 5/325 mg Tab PO PRN (06:52)
[2017-02-12 07:26] LABS: BASO % 0.5 % (0.0-2.0); EOS # 0.2 K/uL (0.0-0.7); HEMATOCRIT 41.9 % (35.0-51.0); LYMPH # 2.8 K/uL (1.0-4.3); LYMPH % 36.3 % (20.0-40.0); MEAN CELL VOLUME 87.2 fL (80.0-94.0); MEAN CORPUSCULAR HEMOGLOBIN 29.4 pg (27.0-31.0); MEAN CORPUSCULAR HGB CONC 33.6 g/dL (33.0-37.0); MEAN PLATELET VOLUME 8.5 fL (7.2-11.7); MONO # 0.9 K/uL (0.0-0.8); MONO % 11.7 % (0.0-10.0); RED CELL DISTRIBUTION WIDTH 12.9 % (11.5-14.5); WHITE BLOOD COUNT 7.8 K/uL (4.8-10.8)
[2017-02-12 07:48] LABS: CHLORIDE 104 mmol/L (98-107); POTASSIUM 4.1 mmol/L (3.6-5.2); SODIUM 142 mmol/L (132-148)
[2017-02-12 07:50] LABS: ALKALINE PHOSPHATASE 73 U/L (38-126); AST/SGOT 28 U/L (17-59); BILIRUBIN,TOTAL 0.6 mg/dL (0.2-1.3); CARBON DIOXIDE 25 mmol/L (22-30); GFR AFRICAN-AMERICAN > 60
[2017-02-12 07:51] LABS: ALT/SGPT 38 U/L (21-72); BLOOD UREA NITROGEN 16 mg/dL (9-20); CALCIUM 9.2 mg/dl (8.6-10.4); GLUCOSE,RANDOM 83 mg/dL (75-110); MAGNESIUM 2.2 mg/dL (1.6-2.3); PHOSPHOROUS 4.4 mg/dL (2.5-4.5)
[2017-02-12] MEDS: oxyCODONE 10 mg ER Tab (oxyCONTIN) PO SCH (09:48)
[2017-02-12] MEDS: Enoxaparin 40 mg Syringe SC SCH (09:48)
[2017-02-12] MEDS: Saccharomyces Boulardi 250 mg Cap PO SCH (09:49)
--- NOTE | 2017-02-12 11:37 | CP.PCM.PCO ---
Physician Communication Note - Physician Communication Note Physician Communication Note: Seen briefly. Stable, needs Rx. Cleared for d/c.
[2017-02-12 15:25] VITALS: BP 138/76; PULSE 78; TEMP 98.1; O2SAT 95
--- NOTE | 2017-02-12 18:04 | CP.PCM.DIS ---
<Clayton Ceballos E - Last Filed: 02/12/17 19:04> Provider - Provider Date of Admission: 02/03/17 21:11 Attending physician: Jocelin Mobley DO Primary care physician: Dr. Castellon Consults: Plastic Surgery : Dr. Hudson Infectious disease : Dr. Dunham Psychiatry: DR. Welsh Time Spent in preparation of Discharge (in minutes): 45 Diagnosis - Discharge Diagnosis (1) Cellulitis of hand, right Status: Acute Comment: s/p incision and drainage with debridement and joint washout for right MCP abscess on 02/04/17. Patient is to receive Cubcin 800mg daily at an outpatient infusion center. Patient is to follow-up with Dr. Beverly and PMD upon discharge. Hospital Course - Lab Results Lab Results: Micro Results 02/04/17 16:00 Finger Gram Stain - Final 02/04/17 16:00 Finger Wound Culture - Final Methicillin Resistant S Aureus Most Recent Lab Values WBC 7.8 K/uL (4.8-10.8) 02/12/17 07:07 RBC 4.80 Mil/uL (4.40-5.90) 02/12/17 07:07 Hgb 14.1 g/dL (12.0-18.0) 02/12/17 07:07 Hct 41.9 % (35.0-51.0) 02/12/17 07:07 MCV 87.2 fL (80.0-94.0) 02/12/17 07:07 MCH 29.4 pg (27.0-31.0) 02/12/17 07:07 MCHC 33.6 g/dL (33.0-37.0) 02/12/17 07:07 RDW 12.9 % (11.5-14.5) 02/12/17 07:07 Plt Count 271 K/uL (130-400) 02/12/17 07:07 MPV 8.5 fL (7.2-11.7) 02/12/17 07:07 Neut % (Auto) 48.5 % (50.0-75.0) L 02/12/17 07:07 Lymph % (Auto) 36.3 % (20.0-40.0) 02/12/17 07:07 [place] % (Auto) 11.7 % (0.0-10.0) H 02/12/17 07:07 Eos % (Auto) 3.0 % (0.0-4.0) 02/12/17 07:07 Baso % (Auto) 0.5 % (0.0-2.0) 02/12/17 07:07 Neut # 3.8 K/uL (1.8-7.0) 02/12/17 07:07 Lymph # 2.8 K/uL (1.0-4.3) 02/12/17 07:07 [place] # 0.9 K/uL (0.0-0.8) H 02/12/17 07:07 Eos # 0.2 K/uL (0.0-0.7) 02/12/17 07:07 Baso # 0.0 K/uL (0.0-0.2) 02/12/17 07:07 ESR 73 mm/hr (0-15) H 02/07/17 06:46 PT 12.2 SECONDS (9.7-12.2) 02/04/17 07:41 INR 1.1 02/04/17 07:41 APTT 25 SECONDS (21-34) 02/04/17 07:41 Sodium 142 mmol/L (132-148) 02/12/17 07:07 Potassium 4.1 mmol/L (3.6-5.2) 02/12/17 07:07 Chloride 104 mmol/L (98-107) 02/12/17 07:07 Carbon Dioxide 25 mmol/L (22-30) 02/12/17 07:07 Anion Gap 16 (10-20) 02/12/17 07:07 BUN 16 mg/dL (9-20) 02/12/17 07:07 Creatinine 1.1 MG/DL (0.8-1.5) 02/12/17 07:07 Est GFR ( Amer) > 60 02/12/17 07:07 Est GFR (Non-Af Amer) > 60 02/12/17 07:07 Random Glucose 83 mg/dL (75-110) 02/12/17 07:07 Hemoglobin A1c 5.7 % (4.2-6.5) 02/04/17 07:41 Calcium 9.2 mg/dl (8.6-10.4) 02/12/17 07:07 Phosphorus 4.4 mg/dL (2.5-4.5) 02/12/17 07:07 Magnesium 2.2 mg/dL (1.6-2.3) 02/12/17 07:07 Total Bilirubin 0.6 mg/dL (0.2-1.3) 02/12/17 07:07 AST 28 U/L (17-59) 02/12/17 07:07 ALT 38 U/L (21-72) 02/12/17 07:07 Alkaline Phosphatase 73 U/L (38-126) 02/12/17 07:07 Total Creatine Kinase 82 U/L (55-170) 02/08/17 01:05 CK-MB (Mass) 0.35 ng/mL (0.0-3.38) 02/08/17 01:05 Troponin I, Quant < 0.0120 ng/mL (0.00-0.120) 02/08/17 01:05 C-React Prot High Sens > 15.00 mg/L (1.00-3.00) H 02/07/17 06:46 Total Protein 8.0 g/dL (6.3-8.3) 02/12/17 07:07 Albumin 4.0 g/dL (3.5-5.0) 02/12/17 07:07 Globulin 4.0 gm/dL (2.2-3.9) H 02/12/17 07:07 Albumin/Globulin Ratio 1.0 (1.0-2.1) 02/12/17 07:07 Triglycerides 202 mg/dL (0-149) H 02/04/17 07:41 Cholesterol 172 mg/dL (0-199) 02/04/17 07:41 LDL Cholesterol Direct 103 mg/dL (0-129) 02/04/17 07:41 HDL Cholesterol 22 mg/dL (30-70) L 02/04/17 07:41 Procalcitonin < 0.05 NG/ML (0.19-0.49) L 02/10/17 07:16 Vancomycin Peak 7.9 ug/mL (30.0-40.0) L 02/08/17 08:14 Vancomycin Trough 7.3 ug/mL (5.0-10.0) 02/12/17 07:07 - Hospital Course Hospital Course: As per admission document CC: Right arm is infected HPI: Patient is a 52yo male PMHx of HTN, arthritis, anxiety, depression presenting with a right hand infection worsening over the past two weeks. Patient reports that 2 weeks ago he punched some thick glass out of anger and noticed that the next morning his hand had become very swollen. Patient had a scab on the dorsal surface of his hand from an work injury which "popped off" after which he had an open wound that was draining serosanguinous fluid that later turned into purulent fluid. Patient reported that he could feel like his hand was inflamed and felt like there was something stuck in it between the fourth and fifth metacarpal. He was given percocet for the pain and a 7 day course of antibiotics but the purulent discharge continued and the pain worsened. Patient reported he was unable to make a fist secondary to the pain and he felt like his right hand was tight. He continued to apply "3 in 1 antibiotic ointment" which did not seem to help. Patient decided to come in today as the pain and purulent discharge worsened. 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 Patient denied diaphoresis, weakness, chaneg in hearing, sore throat, dysphagia, chest pain, palpitations, SOB, cough, abdominal pain, nausea, vomiting, hematemesis, hematochezia, melenotic stool, dysuria, swelling in his legs, rash, easy bruising, easy bleeding. Patient has been traveling back and forth to [facility] and has not been around any sick contacts. Hospital Course: Patient was admitted on 02/03/17 for right hand wound with right hand X-ray r/o osteomyelitis fracture or dislocation and CT of the upper extremity showing CT R hand with IV contrast (02/04/17) - prominent soft tissue swelling seen within the dorsal soft tissues at the level 3rd, 4th, and 5th metacarpal heads. Prominent enhancing soft tissue collection Other incidental findings (please see full report). Prominent partially enhancing soft tissue collection 2.0 X2.0 X2.1 cm extending from the subcutaneous soft tissues to the dorsal cortex of the head of 4th MCP extending to MCP joint space, involve 4th extensor tendon sheath (Focal abscess and/or phlegmon). No gross osseous destruction to suggest for acute osteomyelitis. Prominent degenerative changes at the level of wrist and carpometacarpal basis with joint space narrowing, subchondral sclerosis, osteophytosis, and subchondral cyst formation. Chronic deformity of the head 5ht metacarpal bone. Bone island at the head 3rd metacarpala bone. Prominent osteophytosis at the base of 2nd metacarpal carpal bone. Subchondral cyst formation with degenerative changes at the 1st MCP joint space. Wound culture was taken upon admission and was positive MRSA with negative blood culture. Patient was then evaluated by Dr. Hudson and subsequent taken for an incision and drainage with debridement and joint washout on 02/04/17. Patient tolerated procedure very well and Bayron drain was removed today at bedside and Medihoney was applied to the wound and wrapped in kerlex on 02/05/17. Dr. Dunham , infectious disease physician was consulted on the case for patient's +MRSA wound culture. Patient was started on Vancomycin 1gm IVPB q12 on (02/05/17). After evaluation by Dr. Dunham, a left-sided PICC line was placed in patient's arm on 02/06/17 for long-term antibiotics. Patient continued with Vancomycin dose which was stopped on 02/10/17. Patient was then started on Cubicin ( Daptomycin 800mg IV Q24H. Patient was discharged on 02/12/17 and will continue course of daptomycin for 6 weeks at outpatient infusion center. Discharge Exam - Head Exam Head Exam: NORMAL INSPECTION, NORMOCEPHALIC - Eye Exam Eye Exam: EOMI, Normal appearance - ENT Exam ENT Exam: Mucous Membranes Moist, Normal Exam - Respiratory Exam Respiratory Exam: Clear to PA & Lateral, NORMAL BREATHING PATTERN - Cardiovascular Exam Cardiovascular Exam: REGULAR RHYTHM, +S1, +S2 - GI/Abdominal Exam GI & Abdominal Exam: Normal Bowel Sounds, Soft - Extremities Exam Extremities exam: full ROM, normal capillary refill, normal inspection, pedal pulses present - Neurological Exam Neurological exam: Alert, Altered, Oriented x3 - Psychiatric Exam Psychiatric exam: Normal Affect, Normal Mood - Skin Skin Exam: Dry, Normal Color, Warm Discharge Plan - Discharge Medications Prescriptions: DAPTOmycin [Cubicin] 800 mg IV Q24H #35 vial Lisinopril [Zestril] 10 mg PO DAILY #30 tab oxyCODONE [oxyCONTIN Extended Release Tab] 10 mg PO Q12 #10 oxyCODONE/Acetaminophen [Percocet 5/325 mg Tab] 1 tab PO Q6H PRN #10 tab PRN Reason: Pain, Severe (8-10) Rosuvastatin Calcium [Crestor] 10 mg PO HS #30 tab - Follow Up Plan Condition: STABLE Disposition: HOME/ ROUTINE Instructions: Daptomycin (By injection), MRSA (Methicillin Resistant Staphylococcus Aureus) (GEN), Cellulitis (DC), Cellulitis (GEN), Peripherally Inserted Central Catheters and Midline Catheters (GEN), Acute Wound Care (GEN) Additional Instructions: Patient stable for discharge home as per Dr Mobley. Patient to complete 5 week duration of IV Daptomycin via the outpatient infusion center. Patient advised to follow up at the [facility] [phone] to establish care & follow up with plastic surgery, Dr Hudson/Dr Gallo. Patient psychiatrically stable for discharge. <Jocelin Mobley V - Last Filed: 03/04/17 19:28> Provider - Provider Date of Admission: 02/03/17 21:11 Attending physician: Jocelin Mobley, Hospital Course - Lab Results Lab Results: Micro Results 02/04/17 16:00 Finger Gram Stain - Final 02/04/17 16:00 Finger Wound Culture - Final Methicillin Resistant S Aureus Most Recent Lab Values WBC 7.8 K/uL (4.8-10.8) 02/12/17 07:07 RBC 4.80 Mil/uL (4.40-5.90) 02/12/17 07:07 Hgb 14.1 g/dL (12.0-18.0) 02/12/17 07:07 Hct 41.9 % (35.0-51.0) 02/12/17 07:07 MCV 87.2 fL (80.0-94.0) 02/12/17 07:07 MCH 29.4 pg (27.0-31.0) 02/12/17 07:07 MCHC 33.6 g/dL (33.0-37.0) 02/12/17 07:07 RDW 12.9 % (11.5-14.5) 02/12/17 07:07 Plt Count 271 K/uL (130-400) 02/12/17 07:07 MPV 8.5 fL (7.2-11.7) 02/12/17 07:07 Neut % (Auto) 48.5 % (50.0-75.0) L 02/12/17 07:07 Lymph % (Auto) 36.3 % (20.0-40.0) 02/12/17 07:07 [place] % (Auto) 11.7 % (0.0-10.0) H 02/12/17 07:07 Eos % (Auto) 3.0 % (0.0-4.0) 02/12/17 07:07 Baso % (Auto) 0.5 % (0.0-2.0) 02/12/17 07:07 Neut # 3.8 K/uL (1.8-7.0) 02/12/17 07:07 Lymph # 2.8 K/uL (1.0-4.3) 02/12/17 07:07 [place] # 0.9 K/uL (0.0-0.8) H 02/12/17 07:07 Eos # 0.2 K/uL (0.0-0.7) 02/12/17 07:07 Baso # 0.0 K/uL (0.0-0.2) 02/12/17 07:07 ESR 73 mm/hr (0-15) H 02/07/17 06:46 PT 12.2 SECONDS (9.7-12.2) 02/04/17 07:41 INR 1.1 02/04/17 07:41 APTT 25 SECONDS (21-34) 02/04/17 07:41 Sodium 142 mmol/L (132-148) 02/12/17 07:07 Potassium 4.1 mmol/L (3.6-5.2) 02/12/17 07:07 Chloride 104 mmol/L (98-107) 02/12/17 07:07 Carbon Dioxide 25 mmol/L (22-30) 02/12/17 07:07 Anion Gap 16 (10-20) 02/12/17 07:07 BUN 16 mg/dL (9-20) 02/12/17 07:07 Creatinine 1.1 MG/DL (0.8-1.5) 02/12/17 07:07 Est GFR ( Amer) > 60 02/12/17 07:07 Est GFR (Non-Af Amer) > 60 02/12/17 07:07 Random Glucose 83 mg/dL (75-110) 02/12/17 07:07 Hemoglobin A1c 5.7 % (4.2-6.5) 02/04/17 07:41 Calcium 9.2 mg/dl (8.6-10.4) 02/12/17 07:07 Phosphorus 4.4 mg/dL (2.5-4.5) 02/12/17 07:07 Magnesium 2.2 mg/dL (1.6-2.3) 02/12/17 07:07 Total Bilirubin 0.6 mg/dL (0.2-1.3) 02/12/17 07:07 AST 28 U/L (17-59) 02/12/17 07:07 ALT 38 U/L (21-72) 02/12/17 07:07 Alkaline Phosphatase 73 U/L (38-126) 02/12/17 07:07 Total Creatine Kinase 82 U/L (55-170) 02/08/17 01:05 CK-MB (Mass) 0.35 ng/mL (0.0-3.38) 02/08/17 01:05 Troponin I, Quant < 0.0120 ng/mL (0.00-0.120) 02/08/17 01:05 C-React Prot High Sens > 15.00 mg/L (1.00-3.00) H 02/07/17 06:46 Total Protein 8.0 g/dL (6.3-8.3) 02/12/17 07:07 Albumin 4.0 g/dL (3.5-5.0) 02/12/17 07:07 Globulin 4.0 gm/dL (2.2-3.9) H 02/12/17 07:07 Albumin/Globulin Ratio 1.0 (1.0-2.1) 02/12/17 07:07 Triglycerides 202 mg/dL (0-149) H 02/04/17 07:41 Cholesterol 172 mg/dL (0-199) 02/04/17 07:41 LDL Cholesterol Direct 103 mg/dL (0-129) 02/04/17 07:41 HDL Cholesterol 22 mg/dL (30-70) L 02/04/17 07:41 Procalcitonin < 0.05 NG/ML (0.19-0.49) L 02/10/17 07:16 Vancomycin Peak 7.9 ug/mL (30.0-40.0) L 02/08/17 08:14 Vancomycin Trough 7.3 ug/mL (5.0-10.0) 02/12/17 07:07 Attending/Attestation - Attestation I have personally seen and examined this patient.: Yes I have fully participated in the care of the patient.: Yes I have reviewed all pertinent clinical information, including history, physical exam and plan: Yes Notes (Text): This is a late computer entry for 02/12/17. Patient seen, examined, and case discussed with day-time resident. Discussed with case management, patient is approved for Daptomycin 800mg IV daily for 5 weeks with the outpatient transfusion center. Patient recommended to establish care with the [facility] ([phone]) and to follow-up with plastic surgery (Dr. Beverly or Dr. Gallo) in regards to Right hand. Also, I had an extensive conversation with the patient regarding pain medication as needed; since he is getting pain medication to address the pain associated with his hand injury only. Patient reports other aliments including arthritis and back problems which I have told him he needs to follow-up with pain management doctor. Reviewed [place] [employer] INS[employer] AD[employer]ER prior to discharge. Patient given 1) Oxycontin 10mg PO Q 12hours (#10 pills/no refills) for coverage for long acting pain relief, and Percocet 5/325 1 tab PO Q 6hour PRN severe pain (10 pills/no refills) for immediate pain relief). Patient advised he is given limit supply and will need to follow-up with PMD/Clinc or establish care with pain management doctor. Patient discharge with PICC line for completion of 5 weeks of IV abx. Per ID, recommended weekly labs and follow-up with ID. Per psych, patient is stable for discharge. Prescriptions: 1) Daptomycin 800mg IV Q daily for 5 weeks (outpatient transfusion center) 2) Lisinopril 10mg PO daily 3) Oxycodone ER 10mg PO Q 12hours (10 pills/no refills) 4) Percocet 5/325 1 tab PO Q 6hours (10 pills/no refills) 5) crestor 10mg POqhs (30/0) Assessment/Plan 1) Septic Joint * Surgery Dr. Hudson consulted-->help appreciated * Dr. Dunham, ID consulted - help appreciated * Contact isolation * Wound culture - + MRSA, Staph Aureus-->resistant to Clindamycin * Started on Vancomycin 1500mg IVPB Q12 (started 02/10/17) adjusted by infectious disease * CT R hand with IV contrast (02/04/17) - prominent soft tissue swelling seen within the dorsal soft tissues at the level 3rd, 4th, and 5th metacarpal heads. Prominent enhancing soft tissue collection Other incidental findings (please see full report). Prominent partially enhancing soft tissue collection 2.0 X2.0 X2.1 cm extending from the subcutaneous soft tissues to the dorsal cortex of the head of 4th MCP extending to MCP joint space, involve 4th extensor tendon sheath (Focal abscess and/or phlegmon). No gross osseous destruction to suggest for acute osteomyelitis. Prominent degenerative changes at the level of wrist and carpometacarpal basis with joint space narrowing, subchondral sclerosis, osteophytosis, and subchondral cyst formation. Chronic deformity of the head 5ht metacarpal bone. Bone island at the head 3rd metacarpala bone. Prominent osteophytosis at the base of 2nd metacarpal carpal bone. Subchondral cyst formation with degenerative changes at the 1st MCP joint space. (Further details per report) * Blood cultures (02/03/17) - negative X 5 days X2 * Hand right (02/03/17): MRSA * Finger (02/04/17): MRSA * Percocet 5/325mg 1 tab po q6h prn pain * Oxycodone ER 20mg PO Q12H * Tramadol 25mg PO qHS PRN * Florastor 250mg PO BID * As per Dr. Dunham, started on Daptomycin 800mg IV Q24H (02/11/17) and will complete 5 weeks course of this dose at an outpatient infusion center 2) Hypertension * Lisinopril 10mg PO daily * Monitor vitals and adjust accordingly 3) Impaired Glucose tolerance * HbA1c - 5.7 * Advocate for diet and lifestyle modifications 4) Elevated triglycerides and low HDL * Trig - 202-->advocate for diet and lifestyle modifications * recommended OTC fish oil and exercise to build up HDL 5) Anxiety/Depression * Psychiatry (Dr. Welsh) on board--> help appreciated; per psych, patient stable for discharge * Trazadone 50mg PO qHS * Lexapro 10mg PO daily 6) PPX * Protonix 40mg ivp daily * Lovenox 40mg SC daily * SCDs * Florastor 250mg po bid This is a summary of patient's hospitalization. Please see EMR for further details
[2017-02-13] MEDS ORDERED: Pantoprazole 40 mg EC Tab PO SCH (10:00)
--- NOTE | 2017-04-16 07:39 | OP ---
DATE: 02/04/2017 PREOPERATIVE DIAGNOSIS: Right ring finger metacarpophalangeal joint infection. POSTOPERATIVE DIAGNOSIS: Right ring finger metacarpophalangeal joint infection. PROCEDURE: Operative debridement of right ring finger metacarpophalangeal joint with repair of capsule, ulnar nerve block at wrist by surgeon. SURGEON: Mahendra Hudson MD CRUSHER SETTER: IV sedation. ESTIMATED BLOOD LOSS: Less than 10 mL. DESCRIPTION OF PROCEDURE: The patient was identified and consent was confirmed in the preoperative holding area. The patient was taken to the operating room, placed in supine position on the operating room table. Anesthesia was induced. The patient's extremity was prepped and draped in usual sterile fashion. Local anesthetic was injected for dorsal ulnar cutaneous nerve block at the level of the wrist. After manual exsanguination, tourniquet was inflated for the duration of the case. Care was taken not to exsanguinate the hand, but only from the wrist proximally. Next, an incision was made in line with the prior wound, extended proximally and distally for exposure, followed by blunt dissection in a similar fashion through the subcutaneous tissues to the level of the dorsal MP joint capsule. The ulnar sagittal band was partially lacerated, approximately 30% of the longitudinal direction. Blunt probing revealed continued passage into the MP joint. No obvious lance purulence or foreign bodies were noted. A pulse lavage irrigation of the joint was carried out. Articular surfaces were noted to be without significant loss of cartilage. The dorsal capsule was repaired with interrupted [id number] suture leaving a 3 mm gap. A [place] drain was placed within the joint through this defect of the capsule dorsally. The sagittal band was repaired with interrupted [id number] silk suture. The skin was repaired with interrupted absorbable suture with layered closure. The Bayron drain was delivered through the skin at the proximal aspect. This was secured with interrupted nylon suture to the skin. Again, the deep portion of the drain was left within the joint space. Serial irrigation was carried out and the return was clear throughout the procedure. At this juncture, after tourniquet deflation, hemostasis was assured, and wound irrigation, the wound closure was carried out of the dorsal skin with exit of the drain at the proximal aspect through a stab wound. The dressing was applied with a dry, soft dressing with splint application. The patient tolerated the procedure well and was transferred in stable condition to the postanesthesia care unit. Mahendra Hudson MD
== END 2017-02-12 17:50 | disposition home or self-care (01) | DRG 228 ==
LOC: C.ER 17:56 → C.9E 21:11 → C.3T 02-04 00:11 → C.5T 02-05 12:08
PROVIDERS: ADMIT Hospitalist; ATTEND Hospitalist
PROC: GZ58ZZZ Individual Psychotherapy, Cognitive-Behavioral (ICD-10-PCS; 2017-02-03)
PROC: GZ56ZZZ Individual Psychotherapy, Supportive (ICD-10-PCS; 2017-02-03)
PROC: 0R9 Upper Joints, Drainage (ICD-10-PCS; 2017-02-04)
PROC: 0PBP0ZZ Excision of Right Metacarpal, Open Approach (ICD-10-PCS; principal; 2017-02-04 11:00)
PROC: 02HV33Z Insertion of Infusion Device into Superior Vena Cava, Percutaneous Approach (ICD-10-PCS; 2017-02-06)
DX: M00.041 Staphylococcal arthritis, right hand (principal); F33.2 Major depressive disorder, recurrent severe without psychotic features; L03.113 Cellulitis of right upper limb; I10 Essential (primary) hypertension; J45.909 Unspecified asthma, uncomplicated; F12.90 Cannabis use, unspecified, uncomplicated; H54.42 Blindness, left eye, normal vision right eye; R07.9 Chest pain, unspecified; F41.1 Generalized anxiety disorder; G47.00 Insomnia, unspecified; E78.5 Hyperlipidemia, unspecified; Z72.0 Tobacco use; B95.62 Methicillin resistant Staphylococcus aureus infection as the cause of diseases classified elsewhere; M16.10 Unilateral primary osteoarthritis, unspecified hip; R73.02 Impaired glucose tolerance (oral); E78.1 Pure hyperglyceridemia

== ENCOUNTER 2017-05-26 02:51 | Emergency (ER) | payer OTHER ==
--- NOTE | 2017-05-26 03:09 | C.PDOC ---
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 Some nausea, no vomiting., 6/10 sharp pain radiating towards the groin Time Seen by Provider: 05/26/17 03:07 History Per: Patient History/Exam Limitations: no limitations Onset/Duration Of Symptoms: Days (3) Current Symptoms Are (Timing): Worse Context: Other Severity: Severe Pain Scale Rating Of: 6 Location Of Pain/Discomfort: LLQ Radiation Of Pain To:: Flank Quality Of Discomfort: Sharp Associated Symptoms: Nausea. denies: Fever, Chills Exacerbating Factors: None Alleviating Factors: None Last Bowel Movement: Yesterday Recent travel outside of the [place]: No Additional History Per: Patient Past Medical History Reviewed: Historical Data, Nursing Documentation, Vital Signs Vital Signs: Last Vital Signs Temp 98.8 F 05/26/17 03:14 Pulse 83 05/26/17 03:14 Resp 20 05/26/17 03:14 BP 132/81 05/26/17 03:14 Pulse Ox 98 05/26/17 06:00 - Medical History PMH: Anxiety, Arthritis, Asthma (history of asthma), Depression, HTN, Kidney Stones, Chronic Kidney Disease Denies: Diabetes, Hepatitis, HIV, Seizures, Sexually Transmitted Disease Surgical History: Appendectomy - [facility] Procedures APPLICATION OF SPLINT (01/03/14) DRAINAGE OF R METACARPOCARP JT WITH DRAIN DEV, OPEN APPROACH (02/03/17) EXCISION OF RIGHT METACARPAL, OPEN APPROACH (02/03/17) INDIVIDUAL PSYCHOTHERAPY, COGNITIVE-BEHAVIORAL (02/03/17) INDIVIDUAL PSYCHOTHERAPY, SUPPORTIVE (02/03/17) INJECT/INFUSE NEC (09/06/14) INSERTION OF INFUSION DEV INTO SUP VENA CAVA, PERC APPROACH (02/03/17) Family History: States: No Known Family Hx - Social History Hx Alcohol Use: No Hx Substance Use: Yes - Immunization History Hx Tetanus Toxoid Vaccination: Yes Hx Influenza Vaccination: Yes Hx Pneumococcal Vaccination: No Review Of Systems Constitutional: Negative for: Fever, Chills Cardiovascular: Negative for: Chest Pain Respiratory: Negative for: Shortness of Breath Gastrointestinal: Positive for: Nausea, Abdominal Pain. Negative for: Vomiting Genitourinary: Negative for: Dysuria Musculoskeletal: Positive for: Back Pain Skin: Negative for: Rash Neurological: Negative for: Weakness Psych: Negative for: Anxiety Physical Exam - Physical Exam Appears: Non-toxic Skin: Warm, Dry Head: Normacephalic Eye(s): bilateral: Normal Inspection Neck: Supple Chest: Symmetrical Cardiovascular: Rhythm Regular Respiratory: No Rales, No Rhonchi, No Wheezing Gastrointestinal/Abdominal: Soft, Tenderness (left flank pain), No Distention, No Guarding Back: CVA Tenderness (left) Male Genital: No Testicular Tenderness, No Testicular Swelling, No Inguinal Tenderness Extremity: No Tenderness Extremity: Bilateral: Atraumatic Neurological/Psych: Oriented x3, Normal Speech, Normal Cognition Gait: Steady ED Course And Treatment - Laboratory Results Result Diagrams: 05/26/17 03:40 05/26/17 03:40 O2 Sat by Pulse Oximetry: 98 Pulse Ox Interpretation: Normal Reevaluation Time: 05:57 Reassessment Condition: Improved Disposition Counseled Patient/Family Regarding: Studies Performed, Diagnosis, Need For Followup, Rx Given - Disposition Referrals: Kevan Cadet MD [Staff Provider] - Disposition: HOME/ ROUTINE Disposition Time: 03:08 Condition: FAIR Prescriptions: Naproxen [Naprosyn] 1 tab PO BID PRN #25 tab PRN Reason: Pain oxyCODONE/Acetaminophen [Percocet 5/325 mg Tab] 1 tab PO QID PRN #10 tab PRN Reason: Pain Tamsulosin [Flomax] 0.4 mg PO DAILY #15 cap Instructions: Kidney Stones (DC), Renal Colic (ED) - Clinical Impression Clinical Impression: Renal colic on left side, Nephrolithiasis
[2017-05-26 03:10] VITALS: BMI 38.2
[2017-05-26] MEDS ORDERED: Sodium Chloride 0.9% 2,000 ML IV ONE (03:10)
[2017-05-26 03:17] VITALS: RESP 20
[2017-05-26] MEDS ORDERED: Sodium Chloride 0.9% 1,000 ML ONE (03:25)
[2017-05-26 03:45] LABS: HEMATOCRIT 41.5 % (35.0-51.0); WHITE BLOOD COUNT 11.9 K/uL (4.8-10.8)
[2017-05-26 03:49] LABS: RBC URINE 9 /hpf (0-3); URINE BILIRUBIN NEGATIVE (NEGATIVE); URINE BLOOD 1+ (NEGATIVE); URINE COLOR Yellow (YELLOW); URINE GLUCOSE (UA) NORMAL (Normal); URINE KETONE NEGATIVE (NEGATIVE); URINE LEUKOCYTE ESTERASE NEG Leu/uL (Negative); URINE PROTEIN NEGATIVE (NEGATIVE); URINE UROBILINOGEN NORMAL mg/dL (0.2-1.0); WBC URINE 2 /hpf (0-5)
[2017-05-26 03:51] LABS: POTASSIUM 4.4 mmol/L (3.6-5.2)
[2017-05-26 03:53] LABS: ALB/GLOB RATIO 0.9 (1.0-2.1); BILIRUBIN,TOTAL 0.8 mg/dL (0.2-1.3); TOTAL PROTEIN 8.3 g/dL (6.3-8.3)
[2017-05-26 03:59] LABS: BASO # 0.1 K/uL (0.0-0.2); BASO % 0.4 % (0.0-2.0); EOS # 0.2 K/uL (0.0-0.7); EOS % 1.4 % (0.0-4.0); LYMPH # 2.8 K/uL (1.0-4.3); LYMPH % 23.1 % (20.0-40.0); MEAN CELL VOLUME 88.7 fL (80.0-94.0); MEAN CORPUSCULAR HEMOGLOBIN 30.5 pg (27.0-31.0); MEAN CORPUSCULAR HGB CONC 34.4 g/dL (33.0-37.0); MEAN PLATELET VOLUME 9.5 fL (7.2-11.7); MONO # 1.3 K/uL (0.0-0.8); MONO % 10.5 % (0.0-10.0); NRBC % 0.1 % (0.0-2.0); RED CELL DISTRIBUTION WIDTH 13.5 % (11.5-14.5)
[2017-05-26 06:36] VITALS: BP 127/78; PULSE 73; TEMP 98.2; O2SAT 97
--- NOTE | 2017-05-26 09:11 | CT ---
PROCEDURE: CT Abdomen and Pelvis without intravenous contrast HISTORY: left flank pain, history of renal calculi COMPARISON: CT abdomen and pelvis dated 06/17/2012 TECHNIQUE: Multiple contiguous axial images were performed through the abdomen and pelvis without the use of intravenous contrast. Subsequently, sagittal and coronal reformatted images were obtained.. Radiation dose: Total exam DLP = 1361 mGy-cm. This CT exam was performed using one or more of the following dose reduction techniques: Automated exposure control, adjustment of the mA and/or kV according to patient size, and/or use of iterative reconstruction technique. FINDINGS: LOWER THORAX: Bibasilar atelectasis. Scattered atelectasis at the lung bases. Coronary calcifications. LIVER: Fatty infiltration of the liver. GALLBLADDER AND BILE DUCTS: Unremarkable. PANCREAS: Unremarkable. No gross lesion or ductal dilatation. SPLEEN: Unremarkable. ADRENALS: Unremarkable. No mass. KIDNEYS AND URETERS: 5 millimeter calculus in the mid left ureter causing moderate hydroureteronephrosis. Mild left perinephric fat stranding with trace fluid. Right nephrolithiasis. No gross hydronephrosis. Right renal cortical hypodensity suggestive for a possible cyst measuring 2.9 centimeters demonstrating a Hounsfield unit attenuation of 5. VASCULATURE: Unremarkable. No aortic aneurysm. BOWEL: Mild sigmoid diverticulosis. APPENDIX: No findings to suggest acute appendicitis. Appendix not well visualized. PERITONEUM: Unremarkable. No free fluid. No free air. LYMPH NODES: Unremarkable. No enlarged lymph nodes. BLADDER: Unremarkable. REPRODUCTIVE: Heterogeneous and prominent prostate with calcifications. BONES: Degenerative changes in the spine. Posterior disc osteophyte complex at the L5-S1 level. OTHER FINDINGS: Mildly prominent retroperitoneal lymph nodes, probably reactive. IMPRESSION: 5 millimeter calculus in the mid left ureter causing moderate left hydroureteronephrosis. Additional findings as above. These findings were preliminarily reported at 6:07 a.m. on 05/26/[address] Carrol Blackwell from [facility].
== END 2017-05-26 06:38 | disposition home or self-care (01) ==
LOC: C.ER 02:51
DX: N13.2 Hydronephrosis with renal and ureteral calculous obstruction (principal); Z87.442 Personal history of urinary calculi
CPT/HCPCS: 74176; 80053; 81001; 83690; 85025; 85610; 85730; 96361; 96374; 96375; 99284; J1885; J2405; J7040

== ENCOUNTER 2017-12-09 08:40 | Emergency (ER) | payer OTHER ==
[2017-12-09 08:40] VITALS: BMI 38.2
[2017-12-09] MEDS ORDERED: SODIUM CHLORIDE 0.9% IV STA (09:12)
[2017-12-09] MEDS ORDERED: Sodium Chloride 0.9% 1,000 ML IV STA (09:12)
[2017-12-09] MEDS ORDERED: LIDOCAINE IV STA (09:12)
--- NOTE | 2017-12-09 09:17 | C.PDOC ---
History Of Present Illness 52YO MALE PRESENTS TO ED WITH: CO POSSIBLE RENAL COLIC ONSET YEST. L FLANK, OCC RADIATION L GROIN. NO TRAUMA. INTERMIT. +OCC NAUSEA +HEMATURIA. NO FEVER. PS "DRANK LOTS OF WATER" YEST. NO PAIN MEDS TAKEN. NONCOMPLIANT W MEDS X 3 MONTHS DUE TO LACK OF INSURANCE EXAM MILD DIST NONTOXIC ABD OBESE SOFT NT ND NO R/G NO CVAT BACK AROM WO DIFF REMAINDER NEG Time Seen by Provider: 12/09/17 08:59 Chief Complaint (Nursing): Male Genitourinary History Per: Patient History/Exam Limitations: no limitations Onset/Duration Of Symptoms: Days (1) Current Symptoms Are (Timing): Still Present Associated Symptoms: Nausea, Urinary Symptoms. denies: Chills Past Medical History Reviewed: Historical Data, Nursing Documentation, Vital Signs Vital Signs: Last Vital Signs Temp 98.6 F 12/09/17 13:00 Pulse 76 12/09/17 13:00 Resp 18 12/09/17 13:00 BP 139/60 12/09/17 13:00 Pulse Ox 97 12/09/17 13:00 - Medical History PMH: Anxiety, Arthritis, Asthma, Depression, HTN, Hypercholesterolemia, Kidney Stones, Chronic Kidney Disease Denies: Diabetes, Hepatitis, HIV, Seizures, Sexually Transmitted Disease Surgical History: Appendectomy - [facility] Procedures APPLICATION OF SPLINT (01/03/14) DRAINAGE OF R METACARPOCARP JT WITH DRAIN DEV, OPEN APPROACH (02/03/17) EXCISION OF RIGHT METACARPAL, OPEN APPROACH (02/03/17) INDIVIDUAL PSYCHOTHERAPY, COGNITIVE-BEHAVIORAL (02/03/17) INDIVIDUAL PSYCHOTHERAPY, SUPPORTIVE (02/03/17) INJECT/INFUSE NEC (09/06/14) INSERTION OF INFUSION DEV INTO SUP VENA CAVA, PERC APPROACH (02/03/17) Family History: States: Unknown Family Hx - Social History Hx Alcohol Use: No Hx Substance Use: Yes - Immunization History Hx Tetanus Toxoid Vaccination: No (UNSURE) Hx Influenza Vaccination: Yes Hx Pneumococcal Vaccination: No Review Of Systems Except As Marked, All Systems Reviewed And Found Negative. Constitutional: Negative for: Fever Gastrointestinal: Positive for: Nausea, Abdominal Pain (left flank) Genitourinary: Positive for: Hematuria Physical Exam - Physical Exam Appears: Non-toxic, Other (mild distress) Skin: Normal Color, Warm, Dry Head: Atraumatic, Normacephalic Eye(s): bilateral: Normal Inspection Neck: Normal ROM, Supple Chest: Symmetrical Cardiovascular: Rhythm Regular Respiratory: Normal Breath Sounds, No Wheezing Gastrointestinal/Abdominal: Normal Exam, Soft, No Tenderness, No Distention, No Guarding, No Rebound, Other (obese) Back: Normal Inspection (FROM w/o difficulty), No CVA Tenderness Extremity: Normal ROM, No Deformity, No Swelling Neurological/Psych: Oriented x3 ED Course And Treatment - Laboratory Results Result Diagrams: 12/09/17 09:18 12/09/17 09:18 O2 Sat by Pulse Oximetry: 97 (RA) Pulse Ox Interpretation: Normal Progress - Re-Evaluation Re-evaluation Note: 12/09/17 12:06 APPEARS COMFORTABLE NAD VSS. - Data Reviewed Data Reviewed: Lab, Diagnostic imaging, Old records Disposition Counseled Patient/Family Regarding: Studies Performed, Diagnosis, Need For Followup, Rx Given - Disposition Referrals: Trena Johnson MD [Staff Provider] - Disposition: HOME/ ROUTINE Disposition Time: 12:07 Condition: IMPROVED Prescriptions: Acetaminophen with Codeine [Tylenol with Codeine No. 3 300 mg-30 mg] 1 tab PO Q6 PRN #12 tab PRN Reason: Pain, Moderate (4-7) Ibuprofen [Motrin] 600 mg PO Q6 #30 tab Tamsulosin [Flomax] 0.4 mg PO DAILY #14 cap Instructions: Renal Colic (DC) Forms: [facility] (Syrian), Work Excuse - Clinical Impression Clinical Impression: Renal colic on left side - Scribe Statement The provider has reviewed the documentation as recorded by the Scribe (Yuliana Alberto) Provider Attestation: All medical record entries made by the Scribe were at my direction and personally dictated by me. I have reviewed the chart and agree that the record accurately reflects my personal performance of the history, physical exam, medical decision making, and the department course for this patient. I have also personally directed, reviewed, and agree with the discharge instructions and disposition.
[2017-12-09 09:29] LABS: BASO % 0.6 % (0.0-2.0); EOS # 0.2 K/uL (0.0-0.7); EOS % 2.7 % (0.0-4.0); HEMOGLOBIN 15.9 g/dL (12.0-18.0); LYMPH # 2.5 K/uL (1.0-4.3); LYMPH % 34.1 % (20.0-40.0); MEAN CELL VOLUME 88.7 fL (80.0-94.0); MEAN CORPUSCULAR HEMOGLOBIN 30.8 pg (27.0-31.0); MEAN CORPUSCULAR HGB CONC 34.7 g/dL (33.0-37.0); MEAN PLATELET VOLUME 9.7 fL (7.2-11.7); MONO # 0.6 K/uL (0.0-0.8); MONO % 8.6 % (0.0-10.0); NRBC % 0.2 % (0.0-2.0); RBC 5.16 Mil/uL (4.40-5.90); RED CELL DISTRIBUTION WIDTH 13.4 % (11.5-14.5); WHITE BLOOD COUNT 7.4 K/uL (4.8-10.8)
[2017-12-09] MEDS ORDERED: Sodium Chloride 0.9% 1,000 ML ONE (09:34)
[2017-12-09 09:42] LABS: ALBUMIN 4.4 g/dL (3.5-5.0); ALT/SGPT 72 U/L (21-72); AST/SGOT 64 U/L (17-59); BLOOD UREA NITROGEN 16 mg/dL (9-20); CALCIUM 9.5 mg/dl (8.6-10.4); GFR AFRICAN-AMERICAN > 60; GFR NON-AFRICAN AMERICAN > 60; LIPASE 148 U/L (23-300)
[2017-12-09 10:59] LABS: URINE BACTERIA RARE (<OCC); URINE BILIRUBIN NEGATIVE (NEGATIVE); URINE BLOOD 1+ (NEGATIVE); URINE CALCIUM OXALATE CRYSTALS FEW /hpf (<OCC); URINE CLARITY Clear (Clear); URINE COLOR Yellow (YELLOW); URINE GLUCOSE (UA) NORMAL (Normal); URINE LEUKOCYTE ESTERASE NEG Leu/uL (Negative); URINE PROTEIN 2+ mg/dL (NEGATIVE); URINE UROBILINOGEN NORMAL mg/dL (0.2-1.0)
--- NOTE | 2017-12-09 11:09 | CT ---
PROCEDURE: CT Abdomen and Pelvis without intravenous contrast HISTORY: abd pain L FLANK COMPARISON: CT scan of the abdomen pelvis dated 05/26/2017. TECHNIQUE: Contiguous images were obtained from the domes of the diaphragms to the upper thighs without the administration of intravenous contrast. Oral contrast was not administered. Radiation dose: Total exam DLP = 1305.7 mGy-cm. This CT exam was performed using one or more of the following dose reduction techniques: Automated exposure control, adjustment of the mA and/or kV according to patient size, and/or use of iterative reconstruction technique. FINDINGS: LOWER THORAX: Lingular atelectasis. Normal size heart LIVER: Hepatic steatosis. No gross lesion or ductal dilatation. GALLBLADDER AND BILE DUCTS: Unremarkable. PANCREAS: Unremarkable. No gross lesion or ductal dilatation. SPLEEN: Unremarkable. ADRENALS: Unremarkable. No mass. KIDNEYS AND URETERS: Right interpolar 3.1 cm cyst. Left lower pole 0.8 x 0.2 cm nonobstructive calculus. No hydronephrosis. No solid mass. VASCULATURE: Unremarkable. No aortic aneurysm. BOWEL: Colonic diverticulosis. No obstruction. No gross mural thickening. APPENDIX: Unremarkable. Normal appendix. PERITONEUM: Small bilateral fat containing inguinal hernias. No free fluid. No free air. LYMPH NODES: Unremarkable. No enlarged lymph nodes. BLADDER: Unremarkable. REPRODUCTIVE: Unremarkable. BONES: No acute fracture. OTHER FINDINGS: None. IMPRESSION: Nonobstructive left lower pole calculus. No obstructive urolithiasis or evidence of recently passed genitourinary calculus. Additional incidental findings as above.
[2017-12-09 12:08] VITALS: O2SAT 97
[2017-12-09 13:11] VITALS: BP 139/60; PULSE 76; RESP 18; TEMP 98.6
== END 2017-12-09 13:18 | disposition home or self-care (01) ==
LOC: C.ER 08:40
DX: N20.0 Calculus of kidney (principal); Z87.442 Personal history of urinary calculi
CPT/HCPCS: 74176; 80053; 81001; 83690; 85025; 87086; 96361; 96374; 96375; 99285; J1885; J2001; J2405; J7040

== ENCOUNTER 2018-02-10 09:23 | Emergency (ER) | payer OTHER ==
[2018-02-10 09:23] VITALS: BMI 38.2
[2018-02-10 09:32] VITALS: BP 146/96; PULSE 77; TEMP 98.9; O2SAT 97
[2018-02-10 10:12] VITALS: RESP 18
--- NOTE | 2018-02-10 13:08 | C.PDOC ---
History Of Present Illness 53 y/o male presents to the ER complaining of right ear pain which began yesterday. Patient states that he has a slight decrease in his hearing and he noticed some "yellowish drainage coming from ear." Patient reports that he has mild headache. Otherwise, he denies having trauma, fever, dizziness, and vertigo. Chief Complaint (Nursing): ENT Problem History Per: Patient History/Exam Limitations: None Onset/Duration Of Symptoms: Days Current Symptoms Are (Timing): Still Present Severity: Moderate Past Medical History Reviewed: Historical Data, Nursing Documentation, Vital Signs Vital Signs: Last Vital Signs Temp 98.9 F 02/10/18 09:29 Pulse 77 02/10/18 09:29 Resp 18 02/10/18 10:09 BP 146/96 H 02/10/18 09:29 Pulse Ox 97 02/10/18 13:13 - Medical History PMH: Anxiety, Arthritis, Asthma, Depression, HTN, Hypercholesterolemia, Kidney Stones, Chronic Kidney Disease Denies: Diabetes, Hepatitis, HIV, Seizures, Sexually Transmitted Disease Surgical History: Appendectomy - [facility] Procedures APPLICATION OF SPLINT (01/03/14) DRAINAGE OF R METACARPOCARP JT WITH DRAIN DEV, OPEN APPROACH (02/03/17) EXCISION OF RIGHT METACARPAL, OPEN APPROACH (02/03/17) INDIVIDUAL PSYCHOTHERAPY, COGNITIVE-BEHAVIORAL (02/03/17) INDIVIDUAL PSYCHOTHERAPY, SUPPORTIVE (02/03/17) INJECT/INFUSE NEC (09/06/14) INSERTION OF INFUSION DEV INTO SUP VENA CAVA, PERC APPROACH (02/03/17) Family History: States: No Known Family Hx - Social History Hx Alcohol Use: No Hx Substance Use: Yes - Immunization History Hx Tetanus Toxoid Vaccination: No (UNSURE) Hx Influenza Vaccination: Yes Hx Pneumococcal Vaccination: No Review Of Systems Except As Marked, All Systems Reviewed And Found Negative. Constitutional: Negative for: Fever, Chills ENT: Positive for: Ear Pain (right ear pain) Neurological: Positive for: Headache (mild headache). Negative for: Dizziness Physical Exam - Physical Exam Appears: Non-toxic, No Acute Distress Skin: Normal Color, Warm, Dry Head: Atraumatic, Normacephalic Eye(s): bilateral: Normal Inspection Ear(s): Left: Normal, Right: Other (TM bulging, erythema to ear canal) Nose: Normal Oral Mucosa: Moist Throat: Erythema, No Exudate (tonsillar exudates) Chest: Symmetrical Cardiovascular: Rhythm Regular Respiratory: Normal Breath Sounds, No Rales, No Rhonchi, No Wheezing Neurological/Psych: Oriented x3, Normal Speech ED Course And Treatment O2 Sat by Pulse Oximetry: 97 (RA) Pulse Ox Interpretation: Normal Medical Decision Making Medical Decision Making: Plan: --Motrin PO Updates: Patient has been discharged and instructed to follow up with PMD in 2-3 days. Disposition - Disposition Referrals: Marky Stewart MD [Medical Doctor] - Disposition: HOME/ ROUTINE Disposition Time: 09:45 Condition: GOOD Additional Instructions: OSCAR CRISTINA, thank you for letting us take care of you today. Your provider was Sameer Simons DO and you were treated for EAR PAIN. The emergency medical care you received today was directed at your acute symptoms. If you were prescribed any medication, please fill it and take as directed. It may take several days for your symptoms to resolve. Return to the Emergency Department if your symptoms worsen, do not improve, or if you have any other problems. Please contact your doctor or call one of the physicians/clinics you have been referred to that are listed on the Patient Visit Information form that is included in your discharge packet. Bring any paperwork you were given at discharge with you along with any medications you are taking to your follow up visit. Our treatment cannot replace ongoing medical care by a primary care provider outside of the emergency department. Thank you for allowing the [facility] team to be part of your care today. You may use Auralgan, which can be purchased [id number], for ear drops to help with the pain. Follow up with your primary care doctor in 2-3 days for re-evaluation and further management. Prescriptions: Amoxicillin/Clavulanate [Augmentin 875 MG-125 MG] 1 tab PO BID #14 tab Ibuprofen [Motrin] 600 mg PO Q6 PRN #20 tab PRN Reason: Pain, Moderate (4-7) Instructions: Ear Infections (Otitis Media) (DC) Forms: [facility] (Polish) - Clinical Impression Clinical Impression: Otitis media - Scribe Statement The provider has reviewed the documentation as recorded by the Frenchibe Donna Khan Provider Attestation: All medical record entries made by the Scribe were at my direction and personally dictated by me. I have reviewed the chart and agree that the record accurately reflects my personal performance of the history, physical exam, medical decision making, and the department course for this patient. I have also personally directed, reviewed, and agree with the discharge instructions and disposition.
== END 2018-02-10 10:11 | disposition home or self-care (01) ==
LOC: C.ER 09:23
DX: H66.91 Otitis media, unspecified, right ear (principal)

== ENCOUNTER 2018-03-08 16:35 | Emergency (ER) | payer OTHER ==
[2018-03-08 16:35] VITALS: BMI 38.2
[2018-03-08] MEDS ORDERED: Sodium Chloride 0.9% 1,000 ML IV ONE (17:58)
--- NOTE | 2018-03-08 18:23 | C.PDOC ---
History Of Present Illness <Lizet De La Cruz - Last Filed: 03/08/18 18:46> <Peter Belcher - Last Filed: 03/08/18 19:21> 53-year-old male, PMHx includes hypertension and kidney stones, presents to the emergency department with complaints of gradual onset lower back pain, left greater than right, radiating to the abdominal wall for the past few days. Patient notes associated blood in urine. States he has had similar symptoms in past when he was diagnosed with a kidney stone. Pt denies fever or chills, headache, dizziness, neck pain, CP, SOB, dyspnea, palpitation, N/V/D, penile discharge or discharges, testicular swelling or pain. Ambulate to Ed for evaluation, not in any apparent distress. (Lizet De La Cruz) History Per: Patient History/Exam Limitations: no limitations Onset/Duration Of Symptoms: Days Current Symptoms Are (Timing): Still Present Severity: Moderate <Lizet De La Cruz - Last Filed: 03/08/18 18:46> <Peter Belcher - Last Filed: 03/08/18 19:21> Time Seen by Provider: 03/08/18 17:52 Chief Complaint (Nursing): Male Genitourinary Past Medical History Reviewed: Historical Data, Nursing Documentation, Vital Signs - Medical History PMH: Anxiety, Arthritis, Asthma, Depression, HTN, Hypercholesterolemia, Kidney Stones, Chronic Kidney Disease Surgical History: Appendectomy Family History: States: No Known Family Hx - Social History Hx Alcohol Use: No Hx Substance Use: Yes - Immunization History Hx Tetanus Toxoid Vaccination: No (UNSURE) Hx Influenza Vaccination: Yes Hx Pneumococcal Vaccination: No <Lizet De La Cruz - Last Filed: 03/08/18 18:46> Vital Signs: Last Vital Signs Temp 98.6 F 03/08/18 16:43 Pulse 98 H 03/08/18 16:43 Resp 18 03/08/18 16:43 BP 152/93 H 03/08/18 16:43 Pulse Ox 96 03/08/18 18:50 - [facility] Procedures APPLICATION OF SPLINT (01/03/14) DRAINAGE OF R METACARPOCARP JT WITH DRAIN DEV, OPEN APPROACH (02/03/17) EXCISION OF RIGHT METACARPAL, OPEN APPROACH (02/03/17) INDIVIDUAL PSYCHOTHERAPY, COGNITIVE-BEHAVIORAL (02/03/17) INDIVIDUAL PSYCHOTHERAPY, SUPPORTIVE (02/03/17) INJECT/INFUSE NEC (09/06/14) INSERTION OF INFUSION DEV INTO SUP VENA CAVA, PERC APPROACH (02/03/17) Review Of Systems Constitutional: Negative for: Fever, Chills Cardiovascular: Negative for: Chest Pain Respiratory: Negative for: Shortness of Breath Gastrointestinal: Positive for: Abdominal Pain. Negative for: Nausea, Vomiting Genitourinary: Positive for: Hematuria. Negative for: Dysuria Musculoskeletal: Positive for: Back Pain Neurological: Negative for: Weakness, Headache, Dizziness <Lizet De La Cruz - Last Filed: 03/08/18 18:46> Physical Exam - Physical Exam Appears: Well, Non-toxic, No Acute Distress Skin: Normal Color, Warm, Dry, No Rash Head: Normacephalic Eye(s): bilateral: PERRL Nose: No Flaring Oral Mucosa: Moist, No Drooling Lips: Normal Appearing Throat: No Erythema, No Drooling Neck: Normal ROM, Trachea Midline, Supple Cardiovascular: Rhythm Regular, No Murmur, No JVD Respiratory: No Decreased Breath Sounds, No Accessory Muscle Use, No Stridor, No Wheezing Gastrointestinal/Abdominal: Soft, No Tenderness, No Distention, No Guarding, No Rebound Back: No CVA Tenderness, Paraspinal Tenderness (diffuse) Extremity: Normal ROM, No Pedal Edema, No Deformity, No Swelling Neurological/Psych: Oriented x3, Normal Speech <Lizet De La Cruz - Last Filed: 03/08/18 18:46> ED Course And Treatment O2 Sat by Pulse Oximetry: 96 (RA) Pulse Ox Interpretation: Normal <Lizet De La Cruz - Last Filed: 03/08/18 18:46> - Laboratory Results Result Diagrams: 03/08/18 18:36 03/08/18 18:36 Pulse Ox Interpretation: Normal Reevaluation Time: 19:19 Reassessment Condition: Improved <Peter Belcher - Last Filed: 03/08/18 19:21> Disposition - Disposition Disposition Time: 18:49 <Lizet De La Cruz - Last Filed: 03/08/18 18:46> Counseled Patient/Family Regarding: Studies Performed, Diagnosis, Need For Followup, Rx Given <Peter Belcher - Last Filed: 03/08/18 19:21> - Disposition Referrals: Trena Johnson MD [Staff Provider] - Condition: FAIR Additional Instructions: Please return if symptoms recur Prescriptions: traMADol [Ultram] 50 mg PO TID PRN #15 tab PRN Reason: Pain, Severe (8-10) Forms: [facility] (Israeli) - Clinical Impression Clinical Impression: Hematuria, Back pain - Scribe Statement The provider has reviewed the documentation as recorded by the Scribe (Don Prado) <Lizet De La Cruz - Last Filed: 03/08/18 18:46> <Peter Belcher - Last Filed: 03/08/18 19:21> - Scribe Statement All medical record entries made by the Scribe were at my direction and personally dictated by me. I have reviewed the chart and agree that the record accurately reflects my personal performance of the history, physical exam, medical decision making, and the department course for this patient. I have also personally directed, reviewed, and agree with the discharge instructions and disposition. (Lizet De La Cruz) Physician Patient Turnover Patient Signed Over To: Peter Belcher Handoff Comments: csae discussed with and sign out: blood owrk, CT abd /pelvis, re-eval, dispo- pending <Lizet De La Cruz - Last Filed: 03/08/18 18:46>
[2018-03-08] MEDS ORDERED: Sodium Chloride 0.9% 1,000 ML ONE (18:30)
--- NOTE | 2018-03-08 18:40 | CT ---
Date of service: 03/08/2018 PROCEDURE: CT Abdomen and Pelvis without intravenous contrast HISTORY: renal colic COMPARISON: CT scan of the abdomen pelvis dated 12/09/2017. TECHNIQUE: Contiguous images were obtained from the domes of the diaphragms to the upper thighs without the administration of intravenous contrast. Oral contrast was not administered. Radiation dose: Total exam DLP = 1214.2 mGy-cm. This CT exam was performed using one or more of the following dose reduction techniques: Automated exposure control, adjustment of the mA and/or kV according to patient size, and/or use of iterative reconstruction technique. FINDINGS: LOWER THORAX: Mild lingular atelectasis. Cardiomegaly. LIVER: Diffuse hepatic steatosis. No gross lesion or ductal dilatation. GALLBLADDER AND BILE DUCTS: Unremarkable. PANCREAS: Unremarkable. No gross lesion or ductal dilatation. SPLEEN: Unremarkable. ADRENALS: Unremarkable. No mass. KIDNEYS AND URETERS: Right interpolar 3.4 cm cyst. 1.2 x 0.8 cm left renal pelvis calculus causing minimal distention of the left renal collecting system. Punctate nonobstructive left lower pole calculus. No solid mass. VASCULATURE: Unremarkable. No aortic aneurysm. BOWEL: Mild colonic diverticulosis. No obstruction. No gross mural thickening. APPENDIX: Findings to suggest acute appendicitis. PERITONEUM: Small left fat containing inguinal hernia. No free fluid. No free air. LYMPH NODES: Unremarkable. No enlarged lymph nodes. BLADDER: Unremarkable. REPRODUCTIVE: Unremarkable. BONES: No acute fracture. OTHER FINDINGS: None. IMPRESSION: 1.2 x 0.8 cm left renal pelvis calculus causing minimal distension of the left renal collecting system. Punctate nonobstructive left lower pole calculus. Additional stable findings as above.
[2018-03-08 18:47] LABS: BASO # 0.1 K/uL (0.0-0.2); BASO % 0.6 % (0.0-2.0); EOS # 0.1 K/uL (0.0-0.7); EOS % 1.1 % (0.0-4.0); HEMOGLOBIN 15.8 g/dL (12.0-18.0); LYMPH # 3.7 K/uL (1.0-4.3); LYMPH % 28.6 % (20.0-40.0); MEAN CELL VOLUME 88.4 fL (80.0-94.0); MEAN CORPUSCULAR HEMOGLOBIN 30.7 pg (27.0-31.0); MEAN CORPUSCULAR HGB CONC 34.7 g/dL (33.0-37.0); MEAN PLATELET VOLUME 9.2 fL (7.2-11.7); MONO # 1.1 K/uL (0.0-0.8); MONO % 8.5 % (0.0-10.0); NEUT # 7.9 K/uL (1.8-7.0); NEUT % 61.2 % (50.0-75.0); NRBC % 0.5 % (0.0-2.0); RBC 5.14 Mil/uL (4.40-5.90); RED CELL DISTRIBUTION WIDTH 13.9 % (11.5-14.5)
[2018-03-08 18:53] LABS: SQUAMOUS EPITHIAL 2 /hpf (0-5); URINE BACTERIA RARE (<OCC); URINE BILIRUBIN NEGATIVE (NEGATIVE); URINE BLOOD 3+ (NEGATIVE); URINE CALCIUM OXALATE CRYSTALS OCC /hpf (<OCC); URINE CLARITY Hazy (Clear); URINE COLOR Amber (YELLOW); URINE GLUCOSE (UA) NORMAL (Normal); URINE LEUKOCYTE ESTERASE NEG Leu/uL (Negative); URINE PROTEIN 2+ mg/dL (NEGATIVE); URINE UROBILINOGEN NORMAL mg/dL (0.2-1.0)
[2018-03-08 18:57] LABS: ALB/GLOB RATIO 1.2 (1.0-2.1); ALBUMIN 4.9 g/dL (3.5-5.0); ALT/SGPT 69 U/L (21-72); AST/SGOT 51 U/L (17-59); BLOOD UREA NITROGEN 19 mg/dL (9-20); CALCIUM 9.7 mg/dl (8.6-10.4); GFR AFRICAN-AMERICAN > 60; GFR NON-AFRICAN AMERICAN > 60
[2018-03-08 19:36] VITALS: BP 142/91; PULSE 78; RESP 16; TEMP 98.2; O2SAT 97
== END 2018-03-08 19:36 | disposition home or self-care (01) ==
LOC: C.ER 16:35
DX: R31.9 Hematuria, unspecified (principal); M54.9 Dorsalgia, unspecified
CPT/HCPCS: 74176; 80053; 81001; 85025; 87086; 96361; 96374; 99284; J1885; J7030